=== PATIENT | female | born 1965 | race Caucasian/White ===

== ENCOUNTER → 2020-06-15 10:02 | Outpatient (BNVA) | payer OTHER, SELFPAY | PROVIDERS: Family Provider Family Medicine; Visit Provider Family Medicine | DX: Z20.828 Contact with and (suspected) exposure to other viral communicable diseases (principal) | CPT/HCPCS: 87635 ==

== ENCOUNTER → 2020-06-17 09:54 | Outpatient (BNVA) | payer OTHER, SELFPAY | PROVIDERS: Family Provider Family Medicine; Visit Provider Family Medicine | DX: Z20.828 Contact with and (suspected) exposure to other viral communicable diseases (principal) | CPT/HCPCS: 87635 ==

== ENCOUNTER → 2022-04-19 09:43 | Outpatient (BNVA) | payer OTHER, SELFPAY | PROVIDERS: Family Provider Family Medicine; PCP Family Medicine; Visit Provider Family Medicine | DX: I10 Essential (primary) hypertension (principal); E11.9 Type 2 diabetes mellitus without complications | CPT/HCPCS: 80053; 80061; 83036 ==

== ENCOUNTER → 2022-08-31 08:14 | Outpatient (BNVA) | payer OTHER, SELFPAY | PROVIDERS: Family Provider Family Medicine; PCP Family Medicine; Visit Provider Family Medicine | DX: E11.9 Type 2 diabetes mellitus without complications (principal); I10 Essential (primary) hypertension | CPT/HCPCS: 80053; 80061; 83036 ==

== ENCOUNTER → 2023-03-08 08:52 | Outpatient (BNVA) | payer OTHER, SELFPAY | PROVIDERS: Family Provider Family Medicine; PCP Family Medicine; Visit Provider Family Medicine | DX: I10 Essential (primary) hypertension (principal); E11.9 Type 2 diabetes mellitus without complications | CPT/HCPCS: 80053; 80061; 83036 ==

== ENCOUNTER → 2023-06-17 08:18 | Outpatient (BNVA) | payer OTHER, SELFPAY | PROVIDERS: Family Provider Family Medicine; PCP Family Medicine; Visit Provider Family Medicine | DX: E11.9 Type 2 diabetes mellitus without complications (principal) | CPT/HCPCS: 83036 ==

== ENCOUNTER → 2023-09-19 08:01 | Outpatient (BNVA) | payer OTHER, SELFPAY | PROVIDERS: Family Provider Family Medicine; PCP Family Medicine; Visit Provider Family Medicine | DX: I10 Essential (primary) hypertension (principal); E11.9 Type 2 diabetes mellitus without complications | CPT/HCPCS: 80053; 80061; 83036 ==

== ENCOUNTER → 2023-12-11 10:49 | Outpatient (BNVA) | payer OTHER, SELFPAY | PROVIDERS: Family Provider Family Medicine; PCP Family Medicine; Visit Provider Family Medicine | DX: I10 Essential (primary) hypertension (principal); R73.03 Prediabetes; E11.9 Type 2 diabetes mellitus without complications | CPT/HCPCS: 80053; 80061; 83036 ==

== ENCOUNTER → 2024-01-01 13:26 | Outpatient (BNVA) | payer OTHER, SELFPAY | PROVIDERS: Family Provider Family Medicine; PCP Family Medicine; Visit Provider Family Medicine | DX: L98.9 Disorder of the skin and subcutaneous tissue, unspecified (principal) | CPT/HCPCS: 88304 ==

== ENCOUNTER → 2024-03-04 10:05 | Outpatient (BNVA) | payer OTHER, SELFPAY | PROVIDERS: Family Provider Family Medicine; PCP Family Medicine; Visit Provider Family Medicine | DX: E11.9 Type 2 diabetes mellitus without complications (principal); R60.9 Edema, unspecified | CPT/HCPCS: 80053; 83880; 84443 ==

== ENCOUNTER → 2024-03-20 08:00 | Outpatient (BNVA) | payer OTHER, SELFPAY | PROVIDERS: Family Provider Family Medicine; PCP Family Medicine; Visit Provider Family Medicine | DX: I10 Essential (primary) hypertension (principal); E11.9 Type 2 diabetes mellitus without complications; N76.0 Acute vaginitis | CPT/HCPCS: 80053; 80061; 83036 ==

== ENCOUNTER → 2024-04-09 10:46 | Outpatient (BNVA) | payer OTHER, SELFPAY | PROVIDERS: Family Provider Family Medicine; PCP Family Medicine; Visit Provider Family Medicine | DX: N76.0 Acute vaginitis (principal); R30.0 Dysuria | CPT/HCPCS: 81000 ==

== ENCOUNTER → 2024-04-10 10:14 | Outpatient (BNVA) | payer OTHER, SELFPAY | PROVIDERS: Family Provider Family Medicine; PCP Family Medicine; Visit Provider Family Medicine | DX: N76.0 Acute vaginitis (principal) | CPT/HCPCS: 87086 ==

== ENCOUNTER → 2024-04-23 13:39 | Outpatient (BNVA) | payer OTHER, SELFPAY | PROVIDERS: Family Provider Family Medicine; PCP Family Medicine; Visit Provider Family Medicine | DX: R30.0 Dysuria (principal); N39.0 Urinary tract infection, site not specified | CPT/HCPCS: 81000; 87086 ==

== ENCOUNTER → 2024-06-22 08:01 | Outpatient (BNVA) | payer OTHER, SELFPAY | PROVIDERS: Family Provider Family Medicine; PCP Family Medicine; Visit Provider Family Medicine | DX: E11.9 Type 2 diabetes mellitus without complications (principal); I10 Essential (primary) hypertension; R53.83 Other fatigue; R73.03 Prediabetes | CPT/HCPCS: 80053; 80061; 83036; 84443 ==

== ENCOUNTER → 2024-09-17 07:49 | Outpatient (BNVA) | payer OTHER, SELFPAY | PROVIDERS: Family Provider Family Medicine; PCP Family Medicine; Visit Provider Family Medicine | DX: I10 Essential (primary) hypertension (principal); E11.9 Type 2 diabetes mellitus without complications | CPT/HCPCS: 80053; 83036 ==

== ENCOUNTER 2024-09-25 18:17 | Inpatient (IN) | payer OTHER, SELFPAY ==
[2024-09-25 18:20] VITALS: BP 161/72; PULSE 72; RESP 18; TEMP 36.6; O2SAT 99; BMI 43.5
--- NOTE | 2024-09-25 18:23 | ECG_ITS ---
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 Measurements Intervals [place] Rate: 69 P: 56 [place]: 201 QRS: 41 QRSD: 91 T: 52 QT: 343 QTc: 369 Interpretive Statements SINUS RHYTHM MODERATE ST DEPRESSION [0.05+ mV ST DEPRESSION] No previous ECG available for comparison Electronically Signed On 09-26-2024 07:39:01 CDT by Isiah Guy M.D. [email or web address] [id number]
--- NOTE | 2024-09-25 18:59 | XRR_ITS ---
PROCEDURE INFORMATION: Exam: XR Chest Exam date and time: 09/25/2024 9:53 PM Age: 59 years old Clinical indication: Chest pressure; C/O chest pain; Additional info: Cp TECHNIQUE: Imaging protocol: Radiologic exam of the chest. Views: 1 view. COMPARISON: No relevant prior studies available. FINDINGS: Lungs: See Heart/Mediastinum finding. Pleural spaces: Unremarkable. No pleural effusion. No pneumothorax. Heart/Mediastinum: Cardiomegaly, negative for infiltrate. Bones/joints: Unremarkable. XR/XR chest 1V portable [id number] IMPRESSION: Cardiomegaly, negative for infiltrate.
[2024-09-25 19:46] LABS: Basophils % 0.4 %; Eosinophils # 0.1 10^3/uL (0.0-0.8); Eosinophils % 0.8 %; Hematocrit 31.6 % (36-47); Lymphocytes # 1.2 10^3/uL (0.8-4.8); Lymphocytes % 15.3 %; Mean Corpuscular HGB Conc 28.5 g/dL (30-55); Mean Corpuscular Hemoglobin 21.4 pg (27-33); Mean Corpuscular Volume 75.2 fl (85-98); Mean Platelet Volume 9.6 fL (7.4-10.4); Monocytes # 0.5 10^3/uL (0.2-0.9); Monocytes % 5.9 %; Neutrophils # 5.94 10^3/uL (1.8-7.7); Neutrophils % 77.2 %; Nucleated Red Blood Cells % 0 %; Platelet Count 191 10^3/cmm (157-399); Red Cell Distribution Width 17.5 % (12.1-15.1); White Blood Count 7.69 10^3/uL (3.29-11.43)
[2024-09-25 20:06] LABS: Troponin(5th) Baseline 33 ng/L (0-10)
[2024-09-25 20:10] LABS: Anion Gap 17.6 (5-19); Blood Urea Nitrogen 37 mg/dL (8-23); Calcium 10.4 mg/dL (8.5-10.5); Carbon Dioxide 23 mmol/L (22-29); Chloride 102 mmol/L (98-107); Glomerular Filtration Rate 56.4 mL/min (90-130); Glucose 204 mg/dL (65-115); Osmolality Calculated 299 mOsm/kg (285-295); Potassium 5.6 mmol/L (3.5-5.1); Sodium 137 mmol/L (136-145)
--- NOTE | 2024-09-25 20:27 | ECG_ITS ---
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 Measurements Intervals [place] Rate: 66 P: 45 [place]: 201 QRS: 46 QRSD: 94 T: 59 QT: 355 QTc: 375 Interpretive Statements SINUS RHYTHM LOW QRS VOLTAGE IN PRECORDIAL LEADS [QRS DEFLECTION < 1.0 mV IN CHEST LEADS] MODERATE ST DEPRESSION [0.05+ mV ST DEPRESSION] Compared to ECG 09/25/2024 18:23:08 Low QRS voltage now present ST (T wave) deviation still present Electronically Signed On 09-26-2024 07:44:57 CDT by Isiah Guy M.D. [email or web address] [id number]
[2024-09-25 21:22] LABS: Troponin 5 2HR 58.26 ng/L (0-10)
[2024-09-25 21:23] LABS: Troponin 5 2HR Delta 25.26 ABS# (0-10)
[2024-09-25 22:16] VITALS: BP 162/96; PULSE 68; RESP 16; O2SAT 99
[2024-09-25 22:56] VITALS: BP 146/74; PULSE 76
[2024-09-25] MEDS: nitroglycerin 1 gm/inch oint Pkt 0.5 INCH TOPICAL (22:56)
[2024-09-25] MEDS: enoxaparin 120 mg/0.8 mL Syringe SUBCUT (22:56)
[2024-09-25] MEDS: clopidogrel 300 mg Tablet PO (23:00)
[2024-09-25] MEDS: aspirin 81 mg Chew Tablet 324 MG PO (23:01)
[2024-09-25 23:05] VITALS: BP 146/74; PULSE 84; RESP 16; O2SAT 98
--- NOTE | 2024-09-25 23:14 | P.HP_ITS ---
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 Patient is stating that for last 3 to 4 days she has been experiencing burning sensation especially after her lunchtime after meals, her symptoms would go away after a few hours, but since last 24 hours after her lunch she has been experiencing burning sensation radiating towards her left arm, associated with nausea and 1 episode of vomiting, numbness of left arm. Patient is leading a sedentary lifestyle. Sleeps in a recliner stating that every time she lays flat she would start coughing. No previous history of myocardial infarction, CHF, or stroke. She does not smoke or drink alcohol. Lives with her family. PCP is Dr. Seth. Workup in the ER consistent with non-STEMI she has been loaded with aspirin Plavix and Lovenox, EKG showed mild ST depression She is chest discomfort free at the time of evaluation Review of Systems 2 Const: Denies: fever(s) Eyes: Denies: change in vision ENMT: Denies: throat pain Card: Reports: chest pain Resp: Reports: dyspnea GI: Reports: nausea and vomiting : Denies: flank pain Musc: Reports: back pain Skin/Breast: Denies: rash Neuro: Denies: headache(s) Endo: Reports: polyuria Medications/Allergies Home Medications ?Medication ?Instructions ?Recorded ?Confirmed ?Last Taken ?Type allopurinol 100 mg tablet 100 mg PO DAILY #90 tabs 09/22/24 Unknown Rx losartan 100 mg tablet See Rx Instructions .Route 0 01/16/24 09/22/24 Unknown Rx .COMPLEX #30 tabs fluconazole 150 mg tablet 150 mg PO Q3D 2 doses #2 tab s 09/09/24 09/22/24 Unknown Rx naproxen 500 mg tablet See Rx Instructions .Route 0 09/09/24 09/22/24 Unknown Rx .COMPLEX #180 tabs insulin glargine 100 unit/mL (3 See Rx Instructions GARNICA BCUT 09/22/24 09/22/24 Unknown Rx mL) subcutaneous pen (Basaglar .COMPLEX #15 mL KwikPen U-100 Insulin) spironolactone 25 mg tablet See Rx Instructions .Route 09/22/24 09/22/24 Unknown Rx .COMPLEX #90 tabs Allergies Allergy/AdvReac Type Severity Reaction Status Date / Time No Known Allergies Allergy Verified 03/25/24 08:24 PFSH Acute 2 PFSH: Medical History Controlled type 2 diabetes mellitus Hypertension Social History Smoking and tobacco/nicotine status: unknown if used tobacco/nicotine Vitals/I&O/Wt Last Vital Signs Temp 97.8 F 09/25/24 18:20 Pulse 84 09/25/24 23:05 Resp 16 09/25/24 23:05 BP 146/74 09/25/24 23:05 Pulse Ox 98 09/25/24 23:05 O2 Del Method Room Air 09/25/24 23:05 Weight last 48 hrs Weight 126.099 kg Physical Exam 2 Narrative: female Interceed No active focal deficit GCS 15 AOx4 No active discomfort at all S1, S2 No audible stridor or wheezing Distended nontender abdomen Lower extremity nonpitting edema Appears stated age Data 09/25/24 19:38 09/25/24 19:38 A&P Assessment and plan (1) Hypertension: (2) Controlled type 2 diabetes mellitus: (3) Non-STEMI (non-ST elevated myocardial infarction): Plan Non-STEMI Start ACS protocol Requested echo Dr. Ames consulted No active chest pain ST depression on EKG significant delta troponin No previous history of [place], CHF Hypertension: Will continue losartan, add Coreg: Need optimization of antihypertensive regimen If blood pressure raise above 140s consistently then she may benefit from addition of hydrochlorothiazide and amlodipine Type 2 diabetes: Insulin with sliding scale check A1c level along lipid panel Full code Consistent carb diet DVT prophylaxis: Currently on therapeutic Lovenox Cough on laying back: Possible GERD: Continue Protonix PDMP PDMP Reviewed: Not Reviewed Attestations 2 Medical Necessity Statement*: More than 2 midnights anticipated for management of ACS/non-STEMI Diagnoses Hypertension I10 Controlled type 2 diabetes mellitus E11.9 Non-STEMI (non-ST elevated myocardial infarction) I21.4
[2024-09-25 23:54] LABS: Estmated Average Glucose 171; Hemoglobin A1C 7.6 % (4.0-6.0)
[2024-09-26] VITALS (12 sets, daily range): BP systolic 109–154; BP diastolic 56–89; PULSE 74–95; RESP 15–25; TEMP 36.4–37.1; O2SAT 95–99; BMI 44.4
[2024-09-26] MEDS: carvedilol 6.25 mg Tablet PO ×3 (01:25→17:17)
[2024-09-26 02:15] LABS: Troponin 5 6HR 151.8 ng/L (0-10); Troponin 5 6HR Delta 118.8 ng/L (0-12)
[2024-09-26 03:07] LABS: Vitamin B12 456 pg/mL (232-1245)
[2024-09-26 05:10] LABS: Basophils % 0.4 %; Eosinophils # 0.1 10^3/uL (0.0-0.8); Eosinophils % 0.6 %; Hematocrit 31.4 % (36-47); Lymphocytes # 1.9 10^3/uL (0.8-4.8); Lymphocytes % 19.7 %; Mean Corpuscular Hemoglobin 21.3 pg (27-33); Mean Platelet Volume 9.6 fL (7.4-10.4); Monocytes # 0.6 10^3/uL (0.2-0.9); Monocytes % 5.9 %; Neutrophils # 7.08 10^3/uL (1.8-7.7); Neutrophils % 72.8 %; Nucleated Red Blood Cells % 0 %; Platelet Count 216 10^3/cmm (157-399); Red Blood Count 4.13 10^6/uL (3.85-5.65); Red Cell Distribution Width 17.4 % (12.1-15.1); White Blood Count 9.72 10^3/uL (3.29-11.43)
[2024-09-26 05:21] LABS: Anion Gap 17.2 (5-19); Blood Urea Nitrogen 35 mg/dL (8-23); C Reactive Protein 19.6 mg/L (0.0-4.9); Calcium 10.1 mg/dL (8.5-10.5); Carbon Dioxide 20 mmol/L (22-29); Chloride 103 mmol/L (98-107); Glomerular Filtration Rate 56.4 mL/min (90-130); Glucose 177 mg/dL (65-115); Osmolality Calculated 292 mOsm/kg (285-295); Potassium 5.2 mmol/L (3.5-5.1); Sodium 135 mmol/L (136-145)
[2024-09-26 06:07] LABS: Glucose Point of Care 178 mg/dL (70-110)
--- NOTE | 2024-09-26 08:05 | PM.CONSULT ---
Providers/Reason For Consult Consulting Physician/Specialty*: DANA Ames MD/cardiology Reason for Consult*: Patient with a chest pain and elevated troponin T Requesting Physician: Dr. Almeida Attending Physician: Janeen Almeida MD Primary Care Provider: Cheko Lyon MD History of Present Illness History of Present Illness Shannan Plaza is a 59 year old female with a history of hypertension, type 2 diabetes and morbid obesity, is present with complaints of chest pain for the last couple of days. She was found to have elevated troponin T with a significant delta in 2 hours. Cardiology consult is requested for further cardiac evaluation recommendations. Apparently this patient has been in her baseline state of health up until 2 days ago when she started having burning type of pain on the left side of the chest following a meal. The pain might have lasted for half an hour or so. It was mild to moderate intensity. She thought that the pain may be related to the heartburns. Yesterday she had pizza for lunch. Following this again she started having heartburn-like symptoms on the left side of the chest of mild to moderate density. By evening, she started having numbness and some discomfort in the left arm. Because of this new change, she came to the emergency room. She did not have any shortness of breath, nausea ,vomiting or sweating. She had a feeling of generalized weakness and not feeling good . In the emergency room, she was given aspirin to chew and was placed on Nitropaste on the chest wall. She also was given subcu Lovenox. Her symptoms gradually subsided. At the time of my examination, patient is pain-free. She has no previous history of coronary disease, myocardial infarction or congestive heart failure. History of high blood pressure for last more than 20 years. Diabetes for the last more than 5 years. She took Ozempic for some time . According the patient, she lost around 100 pounds within a year. Because of the frequent UTIs/vaginitis, the medicine had to be stopped. She has no history of any TIAs or Amaurosis. No history of bleeding disorders. No history of anemia denies any fever, chills or cough. No other specific complaints. No significant family history of atherosclerotic heart diseas. Her father might have had some type of heart problem but never been treated. Denies any smoking abuse, alcohol abuse or any other substance abuse. She works at the [employer] department of this [employer]. Review of Systems Narrative: CONSTITUTIONAL: No fever or chills. Weight loss from Ozempic as mentioned EYES: No blurring of vision or other visual disturbances lately. ENT: No hoarseness of voice, auditory disturbances or sore throat. CARDIOVASCULAR: As mentioned above. RESPIRATORY: No significant cough. GASTROINTESTINAL: No hematemesis or melena. GENITOURINARY: No dysuria or hematuria. INTEGUMENTARY: No skin rashes or history of skin cancer. NEURO: No transient ischemic attacks or amaurosis. PSYCHIATRIC: No history of psychosis or major depression. HEMATOLOGIC: No bleeding disorders or significant anemia. ENDOCRINE: Type 2 diabetes as mentioned above MUSCULOSKELETAL: No recent joint pain or swelling. ALLERGY/IMMUNOLOGY: As mentioned above. Medications/Allergies Home Medications ?Medication ?Instructions ?Recorded ?Confirmed ?Last Taken ?Type allopurinol 100 mg tablet 100 mg PO DAILY #90 tabs 12/24/23 09/26/24 Unknown Rx losartan 100 mg tablet See Rx Instructions .Route 01/16/24 09/26/24 Unknown Rx .COMPLEX #30 tabs fluconazole 150 mg tablet 150 mg PO Q3D 2 doses #2 tabs 09/09/24 09/26/24 Unknown Rx naproxen 500 mg tablet See Rx Instructions .Route 09/09/24 09/26/24 Unknown Rx .COMPLEX #180 tabs insulin glargine 100 unit/mL (3 See Rx Instructions SUBCUT 09/22/24 09/26/24 Unknown Rx mL) subcutaneous pen (Basaglar .COMPLEX #15 mL KwikPen U-100 Insulin) spironolactone 25 mg tablet See Rx Instructions .Route 09/22/24 09/26/24 Unknown Rx .COMPLEX #90 tabs Allergies Allergy/AdvReac Type Severity Reaction Status Date / Time No Known Allergies Allergy Verified 03/25/24 08:24 Current Medications Generic Name Dose Route Start Last Admin Trade Name Сергейq PRN Reason Stop Dose Admin Carvedilol 6.25 mg 09/26/24 00:20 09/26/24 01:25 Carvedilol 6.25 Mg Tablet PO 6.25 mg BID HANG Administration PFSH Acute PFSH: Medical History Controlled type 2 diabetes mellitus Hypertension Social History Smoking and tobacco/nicotine status: unknown if used tobacco/nicotine Vitals/I&O/Wt Last Vital Signs Temp 97.6 F 09/26/24 07:26 Pulse 78 09/26/24 07:26 Resp 24 H 09/26/24 07:26 BP 145/89 09/26/24 07:26 Pulse Ox 96 09/26/24 07:26 O2 Del Method Room Air 09/26/24 07:26 Weight last 48 hrs Weight 283 lb 6 oz Weight 283 lb 6 oz Weight 278 lb Physical Exam Narrative: GENERAL: The patient is alert and oriented times three. Not in any acute distress. Obese HEENT: No significant pallor, icterus or lymphadenopathy.Oral cavity: There are no mucous membrane lesions. NECK: Trachea appears to be central. No masses noted. No JVD or thyromegaly appreciated. RESPIRATORY: Chest is symmetrical. No intercostals muscle retraction or any accessory muscle activation. There is no chest wall tenderness. Breath sounds are heard bilaterally. No rales or rhonchi heard. No evidence of any consolidation. BREASTS: Deferred. HEART: The heart sounds are normal. No S3 or S4. No significant murmurs. No pericardial rub ABDOMEN: No vessel pulsations or distention. No tenderness. No organomegaly appreciated. Bowel sounds are normally heard. : Deferred. RECTAL: Deferred. LYMPHATIC: No lymphadenopathy noted in the neck. EXTREMITIES: Trace edema bilaterally with no cyanosis. MUSCULOSKELETAL: No acute joint deformities or swelling SKIN: There are no significant rashes or ecchymosis NEUROPSYCHIATRIC: The patient is alert and oriented x3. Appears to be in a good mood. No tremors or rigidity noted. Data 09/27/24 05:31 09/26/24 04:54 Other Labs: Laboratory Last Values WBC 9.72 10^3/uL (3.29-11.43) 09/26/24 04:54 RBC 4.13 10^6/uL (3.85-5.65) 09/26/24 04:54 Hgb 8.80 g/dL (11.27-16.99) L 09/26/24 04:54 Hct 31.4 % (36-47) L 09/26/24 04:54 MCV 76.0 fl (85-98) L 09/26/24 04:54 MCH 21.3 pg (27-33) L 09/26/24 04:54 MCHC 28.0 g/dL (30-55) L 09/26/24 04:54 RDW 17.4 % (12.1-15.1) H 09/26/24 04:54 Plt Count 216 10^3/cmm (157-399) 09/26/24 04:54 MPV 9.6 fL (7.4-10.4) 09/26/24 04:54 Neut % (Auto) 72.8 % 09/26/24 04:54 Lymph % (Auto) 19.7 % 09/26/24 04:54 [place] % (Auto) 5.9 % 09/26/24 04:54 Eos % (Auto) 0.6 % 09/26/24 04:54 Baso % (Auto) 0.4 % 09/26/24 04:54 Neut # (Auto) 7.08 10^3/uL (1.8-7.7) 09/26/24 04:54 Lymph # (Auto) 1.9 10^3/uL (0.8-4.8) 09/26/24 04:54 [place] # (Auto) 0.6 10^3/uL (0.2-0.9) 09/26/24 04:54 Eos # (Auto) 0.1 10^3/uL (0.0-0.8) 09/26/24 04:54 Baso # (Auto) 0.0 10^3/uL (0.0-0.1) 09/26/24 04:54 Nucleated RBC % (auto) 0 % 09/26/24 04:54 Nucleated RBCs # 0.0 /100WBC 09/26/24 04:54 D-Dimer 0.60 ug/mLFEU (0-0.59) H 09/25/24 19:38 Sodium 135 mmol/L (136-145) L 09/26/24 04:54 Potassium 5.2 mmol/L (3.5-5.1) H 09/26/24 04:54 Chloride 103 mmol/L (98-107) 09/26/24 04:54 Carbon Dioxide 20 mmol/L (22-29) L 09/26/24 04:54 Anion Gap 17.2 (5-19) 09/26/24 04:54 BUN 35 mg/dL (8-23) H 09/26/24 04:54 Creatinine 1.0 mg/dL (0.5-0.9) H 09/26/24 04:54 GFR Calculation 56.4 mL/min (90-130) L 09/26/24 04:54 Glucose 177 mg/dL (65-115) H 09/26/24 04:54 POC Glucose 178 mg/dL (70-110) H 09/26/24 06:03 Estimat Average Glucose 171 09/25/24 19:38 Hemoglobin A1c 7.6 % (4.0-6.0) H 09/25/24 19:38 Calculated Osmolality 292 mOsm/kg (285-295) 09/26/24 04:54 Calcium 10.1 mg/dL (8.5-10.5) 09/26/24 04:54 Magnesium 2.0 mg/dL (1.7-2.3) 09/26/24 04:54 Troponin T Baseline 33 ng/L (0-10) H 09/25/24 19:38 Troponin T 120 Minute 58.26 ng/L (0-10) H 09/25/24 20:57 Delta Troponin T 25.26 ABS# (0-10) H* 09/25/24 20:57 Troponin T Hi Sens 6Hr 151.8 ng/L (0-10) H 09/26/24 01:06 Troponin T Hi Sens 6Hr Delta 118.8 ng/L (0-12) H* 09/26/24 01:06 C-Reactive Protein 19.6 mg/L (0.0-4.9) H 09/26/24 04:54 Vitamin B12 456 pg/mL (232-1245) 09/25/24 19:38 EKG 1: My Interpretation: Normal sinus rhythm. Low voltage complexes in the precordial leads. Nonspecific ST changes in the inferior and high lateral leads. A&P Assessment and plan (1) Non-STEMI (non-ST elevated myocardial infarction): Patient sublingual features are consistent with unstable angina/non-ST elevation myocardial infarction. Currently she is asymptomatic. Hemodynamically stable. Her troponin T is trending upwards. The 2-hour delta of 25 with a 6-hour delta of 119. She may be kept on the Plavix, aspirin and heparin (2) Controlled type 2 diabetes mellitus: The blood sugar is fairly under control. This may be closely monitored. Qualifiers: Diabetes mellitus complication status: without complication Diabetes mellitus termite renewal inspector insulin use: with shelter use Qualified Code(s): E11.9 - Type 2 diabetes mellitus without complications; Z79.4 - technician terminal and repeater (current) use of insulin (3) Hypertension: Blood pressure is a stage II. Need to optimize the antihypertensive medications. I may add isosorbide mononitrate 30 mg p.o. daily in addition to current medications. Qualifiers: Hypertension type: primary hypertension Qualified Code(s): I10 - Essential (primary) hypertension (4) Anemia: The etiology is unclear. No evidence of any active bleed. This needs to be further evaluated Qualifiers: Anemia type: other cause Other causes of anemia: other cause, not classified Qualified Code(s): D64.89 - Other specified anemias (5) Renal insufficiency: Etiology is not clear. Possibly from the diabetes. This needs to be further evaluated. Plan The other problems are GERD Obesity Mild hyperkalemia Echocardiogram this morning Workup of anemia as per the primary Careful IV hydration May continue the heparin Plavix and aspirin for the time being Isosorbide mononitrate 30 mg p.o. now and daily Based on the patient's clinical progress and the results of the above, further recommendations will be made. Thank you for the opportunity to evaluate this patient and make these recommendations PDMP PDMP Reviewed: Not Reviewed Coding Level of Care Code 56965 Diagnoses Non-STEMI (non-ST elevated myocardial infarction) I21.4 Controlled type 2 diabetes mellitus without complication, with long-term current use of insulin E11.9; Z79.4 Diabetes mellitus complication status: without complication Diabetes mellitus termite renewal inspector insulin use: with termite renewal inspector use Primary hypertension I10 Hypertension type: primary hypertension Anemia due to other cause, not classified D64.89 Anemia type: other cause Other causes of anemia: other cause, not classified Renal insufficiency N28.9
[2024-09-26] MEDS: insulin lispro 100 unit/1 mL SUBCUT ×4 (09:04→21:02)
[2024-09-26] MEDS: clopidogrel 75 mg Tablet PO (09:05)
[2024-09-26] MEDS: sennosides-docusate Tablet 1 TAB PO (09:05)
[2024-09-26] MEDS: atorvastatin 40 mg Tablet 80 MG PO (09:05)
[2024-09-26] MEDS: losartan 50 mg Tablet 100 MG PO (09:05)
[2024-09-26] MEDS: aspirin 81 mg EC Tablet PO (09:05)
[2024-09-26] MEDS: pantoprazole 40 mg SDV IVP ×2 (09:06→17:16)
--- NOTE | 2024-09-26 09:46 | PC.CHAP ---
Pastoral Care Encounter/Spiritual Assessment Type of Contact [] Declined speech correction assistant visit [] Patient/Family/Request visit [] Outpatient visit [] Follow-up visit [] Physician referral [] Code/Alert [x] Routine visit [] Staff referral [] Actively dying [] Patient sleeping [] Family support [] [] Out of room [] Palliative care [] [] Receiving care in room [] Pre-surgical visit [] Trauma [] Long length of stay [] ICU visit [] Other: Relational/Emotional Strength [x] Patient feels connected with others/family/visitors/staff [] Distress [] Loneliness/isolation [] Abandonment Spirituality of Patient [x] Person of Poornima [] Attends Restorationism of their Poornima [x] Believes in Prayer [] Reads Bible or Evangelical materials [] There are Spiritual issues to be addressed 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 Interventions [x] Prayer [x] Active listening [x] Non-anxious presence [] Spiritual/emotional support [] Crisis/trauma care [] Spiritual counseling [] Bereavement support [] Provided bereavement packet [] Provided Bible/devotional materials [] Provided toy/stuffed animal, coloring book to patient or family member [] Provided Communion [] Anointing/[place] [] Salvation [] Completed spiritual assessment [] Other: Impact on Illness or Injury [] Angry [] Fearful [] Anxious [] Often cries [] Exhaustion [] Unable to work [] Unable to attend christianity [] Unable to walk/stand [] Unable to read [] Unable to drive [] Unable to eat/drink [] Unable to sleep [] Unable to be with family [] Patient intubated [] Other: Summary P+1 Time spent with patient
[2024-09-26] MEDS: isosorbide mononitrate ER 30 mg Tablet PO (10:38)
[2024-09-26] MEDS: enoxaparin 120 mg/0.8 mL Syringe SUBCUT (10:39)
[2024-09-26 11:18] LABS: Glucose Point of Care 217 mg/dL (70-110)
--- NOTE | 2024-09-26 13:09 | PM.PN ---
Subjective Subjective: Current labs and H&P reviewed. Patient does not have any active chest pain at this time. Medications: Reviewed: Yes Vitals/I&O/Wt Last Vital Signs Temp 98.4 F 09/26/24 12:00 Pulse 74 09/26/24 12:00 Resp 22 H 09/26/24 12:00 BP 115/64 09/26/24 12:00 Pulse Ox 97 09/26/24 12:00 O2 Del Method Room Air 09/26/24 12:00 09/25/24 09/26/24 09/26/24 22:59 06:59 14:59 Intake Total 120 / 120 Balance 120 / 120 Weight last 48 hrs Weight 128.537 kg Weight 128.537 kg Weight 126.099 kg Physical Exam Narrative: General: No acute distress, AO x3 HEENT: PERRLA, pupils bilaterally equal and reactive, pallors not present Chest: Normal vesicular breath sounds, no added sounds, equal good air entry bilaterally CVS: S1-S2 regular, no murmurs, no tachycardia, no gallops, no rubs Abdomen: Soft, nontender, no organomegaly, bowel sounds present Neuro: No focal deficits, no facial deformity, AO x3, power 5/5 in all limbs Data 09/26/24 04:54 09/26/24 04:54 A&P Assessment and plan (1) Hypertension: Qualifiers: Hypertension type: primary hypertension Qualified Code(s): I10 - Essential (primary) hypertension (2) Controlled type 2 diabetes mellitus: Qualifiers: Diabetes mellitus assistant terminal manager insulin use: with assistant terminal manager use Diabetes mellitus complication status: without complication Qualified Code(s): E11.9 - Type 2 diabetes mellitus without complications; Z79.4 - termite control servicer (current) use of insulin (3) Non-STEMI (non-ST elevated myocardial infarction): (4) Anemia: Qualifiers: Anemia type: other cause Other causes of anemia: other cause, not classified Qualified Code(s): D64.89 - Other specified anemias Plan Non-STEMI Start ACS protocol Requested echo Dr. Ames consulted No active chest pain ST depression on EKG significant delta troponin No previous history of [place], CHF Hypertension: Will continue losartan, add Coreg: Need optimization of antihypertensive regimen If blood pressure raise above 140s consistently then she may benefit from addition of hydrochlorothiazide and amlodipine Type 2 diabetes: Insulin with sliding scale check A1c level along lipid panel Full code Consistent carb diet DVT prophylaxis: Currently on therapeutic Lovenox Cough on laying back: Possible GERD: Continue Protonix September 26, 2024 Patient admitted overnight with NSTEMI. Currently denies any chest pain. Thus far she has had treatment with aspirin, Plavix, Lovenox 120 mg 2 doses. Case discussed with cardiology. There is concern that patient has Anemia. Low hemoglobin of 9.0 at night, 8.8 this morning. Uncertain cause of anemia at this point. Patient denies any melena or hematemesis recently. Reports a history of epigastric burning over the past week but states this is new and has not bothered her in the past. Review of chart shows patient takes naproxen cirrhosis gastritis may be a possibility. Will obtain fecal occult blood testing. If positive to proceed with endoscopic evaluation prior to cardiac cath. Additionally obtain iron panel, ferritin, TIBC, liver panel to evaluate for elevated bilirubin for hemolysis, obtain B12 and folate levels. TSH reveals normal. Patient denies any known history of anemia, however there is no baseline hemoglobin in the system to compare this to. PDMP PDMP Reviewed: Not Reviewed Attestations Medical Necessity Statement*: Ongoing treatment for NSTEMI, ongoing evaluation for anemia, need to rule out GI bleed prior to proceeding with angiogram. Coding Level of Care Code Acute Code for Chg Fwd Diagnoses Primary hypertension I10 Hypertension type: primary hypertension Controlled type 2 diabetes mellitus without complication, with long-term current use of insulin E11.9; Z79.4 Diabetes mellitus senior care insulin use: with senior care use Diabetes mellitus complication status: without complication Non-STEMI (non-ST elevated myocardial infarction) I21.4 Anemia due to other cause, not classified D64.89 Anemia type: other cause Other causes of anemia: other cause, not classified
--- NOTE | 2024-09-26 13:25 | PC.NURSE ---
Heparin drip Pt received Lovenox around 10:30 AM. Received telephone order from doctor to not give Heparin bolus. Start Heparin drip once verified with pharmacy/pharmacist on what time to start the drip after Lovenox administration. Discuss with pharmacy to safely start it around 5pm.
[2024-09-26 13:43] LABS: Alanine Aminotransferase 16 U/L (0-33); Albumin Level 3.6 g/dL (3.5-5.2); Alkaline Phosphatase 103 U/L (35-105); Aspartate Amino Transferase 36 U/L (0-32); Ferritin 22 ng/mL (15-150); Globulin 4.1 g/dL (1.3-4.6); Iron 34 ug/dL (37-145); Percent Saturation 10.7 % (20-50); Total Bilirubin 0.4 mg/dL (0.15-1.2); Total Iron Binding Capacity 316 mcg/dl; Total Protein 7.7 g/dL (6.6-8.7); Unsaturated Iron Binding 282 ug/dL (112-347)
[2024-09-26 14:04] LABS: Folate Level 12.1 ng/mL (4.8-37.3)
[2024-09-26 14:18] LABS: Partial Thromboplastin Time 36.7 SECONDS (23.9-36.7)
[2024-09-26 17:13] LABS: Glucose Point of Care 193 mg/dL (70-110)
[2024-09-26] MEDS: heparin drip 25,000 UNIT/500 ML PREMIX 35 UNIT IV (17:16)
[2024-09-26 20:36] LABS: Glucose Point of Care 191 mg/dL (70-110)
--- NOTE | 2024-09-26 23:28 | USCV_ITS ---
Shannan Plaza Age: 59 Gender: F : 1965 Exam Date: 09/26/2024 08:20 Ordering Phys: Janeen Almeida MD Technologist: Manny Amor Exam Location: [facility] [place] Indication: UA BP: 145 / 89 HR: 70 Rhythm: Sinus Technical Quality: Adequate MEASUREMENTS (Male / Female) Normal Values 2D ECHO LV Diastolic Diameter PLAX 4.3 cm 4.2 - 5.9 / 3.9 - 5.3 cm IVS Diastolic Thickness 1.2 cm 0.6 - 1.0 / 0.6 - 0.9 cm IVS Systolic Thickness 1.5 cm LVPW Diastolic Thickness 1.0 cm 0.6 - 1.0 / 0.6 - 0.9 cm LVPW Systolic Thickness 1.7 cm LVOT Diameter 2.0 cm LV Ejection Fraction 2D Teich 65.2 % LV Ejection Fraction MOD 4C 58.9 % LV Ejection Fraction MOD 2C 67.1 % LV Ejection Fraction 2C AL 66.8 % LA Diameter 3.7 cm RA Systolic Volume 4C AL 52.5 ml RA Systolic Volume 4C MOD 52.1 ml LA Sys Volume AL 58.1 cm cubed LA Sys Volume Index AL 22.9 cm cubed/m squared Aorta at Sinotubular Diameter 2.4 cm IVC Diameter 1.6 cm M-MODE LA Ao Ratio MM 1.8 AV Cusp Separation MM 1.4 cm DOPPLER AV Peak Velocity 149.0 cm/s LVOT Peak Velocity 107.0 cm/s AV Area Cont Eq vti 2.4 cm squared AV Area Cont Eq pk 2.3 cm squared MV Area PHT 4.0 cm squared Mitral E to A Ratio 0.7 TV Peak Velocity 161.0 cm/s TR Peak Velocity 176.0 cm/s TR Peak Gradient 12.4 mmHg TR Mean Velocity 155.0 cm/s TR Mean Gradient 9.7 mmHg TR Velocity Time Integral 48.2 cm PV Peak Velocity 102.0 cm/s RV Ejection Time 0.2 s FINDINGS Left Ventricle Normal left ventricular size and systolic function, EF 65%mild left ventricular hypertrophy. Grade I/IV diastolic dysfunction (abnormal relaxation filling pattern), normal to mildly elevated filling pressures. No significant wall motion abnormalities Right Ventricle The right ventricle is normal in size and function. Right Atrium The right atrium is normal in size. Left Atrium Possibly of normal size Mitral Valve Thickened mitral valve. Mild mitral annular calcification. Mild mitral valve regurgitation. Aortic Valve No gross abnormalities noted Tricuspid Valve Trace tricuspid valve regurgitation. Pulmonic Valve Pulmonic valve not well visualized. Pericardium Normal pericardium without effusion. Aorta Normal ascending aorta dimension. IVC Inferior vena cava not visualized. CONCLUSIONS Normal left ventricular size and systolic function, EF 65%mild left ventricular hypertrophy. Grade I/IV diastolic dysfunction (abnormal relaxation filling pattern), normal to mildly elevated filling pressures. No significant wall motion abnormalities. Thickened mitral valve. Mild mitral annular calcification. Mild mitral valve regurgitation. Possibly normal cardiac chamber sizes. Trace tricuspid valve regurgitation. Estimated pulmonary artery peak systolic pressure, possibly within normal Technically difficult study because of the poor ultrasonic window. Dr Santi Ames MD FACC (Electronically Signed) Final Date: 26 September 2024 10:14 S
[2024-09-27] VITALS (17 sets, daily range): BP systolic 102–127; BP diastolic 55–65; PULSE 67–92; RESP 18–24; TEMP 36.3–37.2; O2SAT 94–99
[2024-09-27] MEDS: acetaminophen 500 mg Tablet PO (00:19)
[2024-09-27 06:27] LABS: Partial Thromboplastin Time 66.9 SECONDS (23.9-36.7)
[2024-09-27 06:36] LABS: Glucose Point of Care 140 mg/dL (70-110)
[2024-09-27] MEDS: atorvastatin 40 mg Tablet 80 MG PO (08:42)
[2024-09-27] MEDS: losartan 50 mg Tablet 100 MG PO (08:42)
[2024-09-27] MEDS: pantoprazole 40 mg SDV IVP ×2 (08:42→17:45)
[2024-09-27] MEDS: aspirin 81 mg EC Tablet PO (08:42)
[2024-09-27] MEDS: carvedilol 6.25 mg Tablet PO ×2 (08:42→17:46)
[2024-09-27] MEDS: clopidogrel 75 mg Tablet PO (08:42)
[2024-09-27] MEDS: heparin drip 25,000 UNIT/500 ML PREMIX 35 UNIT IV ×2 (08:43→20:06)
[2024-09-27 09:01] LABS: Basophils % 0.4 %; Eosinophils # 0.1 10^3/uL (0.0-0.8); Eosinophils % 0.7 %; Hematocrit 27.2 % (36-47); Lymphocytes # 2.3 10^3/uL (0.8-4.8); Lymphocytes % 24.8 %; Mean Corpuscular HGB Conc 27.9 g/dL (30-55); Mean Corpuscular Hemoglobin 21.2 pg (27-33); Mean Platelet Volume 10.5 fL (7.4-10.4); Monocytes # 0.9 10^3/uL (0.2-0.9); Monocytes % 9.8 %; Neutrophils # 5.82 10^3/uL (1.8-7.7); Neutrophils % 63.8 %; Nucleated Red Blood Cells % 0 %; Platelet Count 172 10^3/cmm (157-399); Red Blood Count 3.58 10^6/uL (3.85-5.65); Red Cell Distribution Width 17.7 % (12.1-15.1); White Blood Count 9.14 10^3/uL (3.29-11.43)
[2024-09-27 09:22] LABS: Bilirubin Urine 1+ (Negative); Blood Urine 3+ (Negative); Glucose Urine UA Negative (Normal); Ketones Urine Negative (Negative); Leukocyte Esterase Urine 2+ (Negative); Nitrate Urine Negative (Negative); Protein Urine 2+ (Negative); Specific Gravity, Urine 1.013 (1.005-1.030); Urine Appearance Turbid (CLEAR); Urobilinogen Urine 0.2 mg/dL (Negative)
[2024-09-27 09:23] LABS: Urine Color Red (Yellow)
[2024-09-27 09:27] LABS: Bacteria Urine Trace /hpf; Hyaline Casts Urine 1.13 /lpf; RBC Urine >100 /hpf (0-2); Squamous Epithelial Cell Urine 0-5 /hpf (0-5); WBC Urine >100 /hpf (0-5)
--- NOTE | 2024-09-27 09:36 | PM.PN ---
Subjective Subjective: Patient's hemoglobin dropped to 7.6 this morning. She had a CT of the abdomen and pelvis. Was found to have no evidence of intra-abdominal mass masses or bleeding. She was found to have some lung nodules which are suspicious. Currently she is scheduled to have a CT of the chest. She also had an episode of chest pain this morning lasting for 3 to 4 minutes, subsided spontaneously. It is a burning type of pain similar to what she had before. Medications: Medication Review Details: Current Medications Acetaminophen (Acetaminophen 500 Mg Tablet) 500 mg PO Q4H PRN PRN Reason: fever Last Admin: 09/27/24 00:19 Dose: 500 mg Albuterol/Ipratropium (Ipratropium-Albuterol 3 Ml Neb) 3 ml INHALATION Q6H PRN PRN Reason: SHORTNESS OF BREATH Aspirin (Aspirin 81 Mg Ec Tablet) 81 mg PO DAILY [facility] Last Admin: 09/27/24 08:42 Dose: 81 mg Atorvastatin Calcium (Atorvastatin 40 Mg Tablet) 80 mg PO DAILY [facility] Last Admin: 09/27/24 08:42 Dose: 80 mg Carvedilol (Carvedilol 6.25 Mg Tablet) 6.25 mg PO BID [facility] Last Admin: 09/27/24 08:42 Dose: 6.25 mg Clopidogrel Bisulfate (Clopidogrel 75 Mg Tablet) 75 mg PO DAILY [facility] Last Admin: 09/27/24 08:42 Dose: 75 mg Glucagon (Glucagon 1 Mg/Ml Kit 1 Ml) 1 mg IM ONCE PRN; Protocol PRN Reason: Adult Acute Hypoglycemia Nursing Prot. Heparin Sodium (Porcine) (Heparin 5,000 Unit/Ml Inj 1 Ml) 0 unit IVP PRN PRN; Protocol PRN Reason: Heparin Weight Based Protocol -Subsequent Bolus Hydralazine HCl (Hydralazine 20 Mg/Ml Inj 1 Ml) 10 mg IVP Q4H PRN PRN Reason: bp>180/100 Dextrose (D5w) 500 mls @ 0 mls/hr IV ONCE PRN; Protocol PRN Reason: Adult Acute Hypoglycemia Prot Dextrose (D10w) 125 mls @ 750 mls/hr IV PRN PRN; Protocol PRN Reason: Adult Acute Hypoglycemia Nursing Protocol Dextrose (D10w) 250 mls @ 1,000 mls/hr IV PRN PRN; Protocol PRN Reason: Adult Acute Hypoglycemia Nursing Protocol Heparin Sodium/Sodium Chloride (Heparin Drip) 25,000 unit in 500 mls @ 0 mls/hr IV CONT [facility]; Protocol Last Admin: 09/27/24 08:43 Dose: 13.93 unit/kg/hr, 35 mls/hr Insulin Human Lispro (Insulin Lispro 100 Unit/1 Ml) 0 unit SUBCUT WM&BEDTIME [facility]; Protocol Last Admin: 09/27/24 07:59 Dose: Not Given Isosorbide Mononitrate (Isosorbide Mononitrate Er 30 Mg Tablet) 30 mg PO DAILY [facility] Last Admin: 09/26/24 10:38 Dose: 30 mg Losartan Potassium (Losartan 50 Mg Tablet) 100 mg PO DAILY [facility] Last Admin: 09/27/24 08:42 Dose: 100 mg Morphine Sulfate (Morphine 4 Mg/Ml Sdv 1 Ml) 2 mg IVP Q4H PRN PRN Reason: SEVERE PAIN Ondansetron HCl (Ondansetron 2 Mg/Ml Sdv 2 Ml) 4 mg IVP Q6H PRN PRN Reason: NAUSEA AND VOMITING Pantoprazole Sodium (Pantoprazole 40 Mg Sdv) 40 mg IVP BID [facility] Last Admin: 09/27/24 08:42 Dose: 40 mg Senna/Docusate Sodium (Sennosides-Docusate Tablet) 1 tab PO DAILY [facility] [place] Last Admin: 09/27/24 08:47 Dose: Not Given Vitals/I&O/Wt Last Vital Signs Temp 97.5 F L 09/27/24 07:24 Pulse 70 09/27/24 07:24 Resp 24 H 09/27/24 07:24 BP 121/64 09/27/24 08:42 Pulse Ox 96 09/27/24 07:24 O2 Del Method Room Air 09/27/24 07:24 09/26/24 09/27/24 09/27/24 22:59 06:59 14:59 Intake Total 120 / 360 860 / 860 Balance 120 / 360 860 / 860 Weight last 48 hrs Weight 276 lb 6 oz Weight 276 lb 14.4 oz Weight 283 lb 6 oz Weight 283 lb 6 oz Weight 278 lb Physical Exam Narrative: GENERAL: The patient is alert and oriented times three. Not in any acute distress. Obese HEENT: No significant pallor, icterus or lymphadenopathy.Oral cavity: There are no mucous membrane lesions. NECK: Trachea appears to be central. No masses noted. No JVD or thyromegaly appreciated. RESPIRATORY: Chest is symmetrical. No intercostals muscle retraction or any accessory muscle activation. There is no chest wall tenderness. Breath sounds are heard bilaterally. No rales or rhonchi heard. No evidence of any consolidation. BREASTS: Deferred. HEART: The heart sounds are normal. No S3 or S4. No significant murmurs. No pericardial rub ABDOMEN: No vessel pulsations or distention. No tenderness. No organomegaly appreciated. Bowel sounds are normally heard. : Deferred. RECTAL: Deferred. LYMPHATIC: No lymphadenopathy noted in the neck. EXTREMITIES: Trace edema bilaterally with no cyanosis. MUSCULOSKELETAL: No acute joint deformities or swelling SKIN: There are no significant rashes or ecchymosis NEUROPSYCHIATRIC: The patient is alert and oriented x3. Appears to be in a good mood. No tremors or rigidity noted. Data 09/27/24 05:31 09/26/24 04:54 Other Labs: Laboratory Last Values WBC 9.14 10^3/uL (3.29-11.43) 09/27/24 05:31 RBC 3.58 10^6/uL (3.85-5.65) L 09/27/24 05:31 Hgb 7.60 g/dL (11.27-16.99) L 09/27/24 05:31 Hct 27.2 % (36-47) L 09/27/24 05:31 MCV 76.0 fl (85-98) L 09/27/24 05:31 MCH 21.2 pg (27-33) L 09/27/24 05:31 MCHC 27.9 g/dL (30-55) L 09/27/24 05:31 RDW 17.7 % (12.1-15.1) H 09/27/24 05:31 Plt Count 172 10^3/cmm (157-399) 09/27/24 05:31 MPV 10.5 fL (7.4-10.4) H 09/27/24 05:31 Neut % (Auto) 63.8 % 09/27/24 05:31 Lymph % (Auto) 24.8 % 09/27/24 05:31 Ballard % (Auto) 9.8 % 09/27/24 05:31 Eos % (Auto) 0.7 % 09/27/24 05:31 Baso % (Auto) 0.4 % 09/27/24 05:31 Neut # (Auto) 5.82 10^3/uL (1.8-7.7) 09/27/24 05:31 Lymph # (Auto) 2.3 10^3/uL (0.8-4.8) 09/27/24 05:31 Ballard # (Auto) 0.9 10^3/uL (0.2-0.9) 09/27/24 05:31 Eos # (Auto) 0.1 10^3/uL (0.0-0.8) 09/27/24 05:31 Baso # (Auto) 0.0 10^3/uL (0.0-0.1) 09/27/24 05:31 Nucleated RBC % (auto) 0 % 09/27/24 05:31 Nucleated RBCs # 0.0 /100WBC 09/27/24 05:31 APTT 66.9 SECONDS (23.9-36.7) H 09/27/24 05:34 D-Dimer 0.60 ug/mLFEU (0-0.59) H 09/25/24 19:38 Sodium 135 mmol/L (136-145) L 09/26/24 04:54 Potassium 5.2 mmol/L (3.5-5.1) H 09/26/24 04:54 Chloride 103 mmol/L (98-107) 09/26/24 04:54 Carbon Dioxide 20 mmol/L (22-29) L 09/26/24 04:54 Anion Gap 17.2 (5-19) 09/26/24 04:54 BUN 35 mg/dL (8-23) H 09/26/24 04:54 Creatinine 1.0 mg/dL (0.5-0.9) H 09/26/24 04:54 GFR Calculation 56.4 mL/min (90-130) L 09/26/24 04:54 Glucose 177 mg/dL (65-115) H 09/26/24 04:54 POC Glucose 140 mg/dL (70-110) H 09/27/24 06:29 Estimat Average Glucose 171 09/25/24 19:38 Hemoglobin A1c 7.6 % (4.0-6.0) H 09/25/24 19:38 Calculated Osmolality 292 mOsm/kg (285-295) 09/26/24 04:54 Calcium 10.1 mg/dL (8.5-10.5) 09/26/24 04:54 Magnesium 2.0 mg/dL (1.7-2.3) 09/26/24 04:54 Iron 34 ug/dL (37-145) L 09/26/24 04:54 TIBC 316 mcg/dl 09/26/24 04:54 % Saturation 10.7 % (20-50) L 09/26/24 04:54 Unsat Iron Binding 282 ug/dL (112-347) 09/26/24 04:54 Ferritin 22 ng/mL (15-150) 09/26/24 04:54 Total Bilirubin 0.4 mg/dL (0.15-1.2) 09/26/24 04:54 Direct Bilirubin 0.20 mg/dL (0.00-0.30) 09/26/24 04:54 AST 36 U/L (0-32) H 09/26/24 04:54 ALT 16 U/L (0-33) 09/26/24 04:54 Alkaline Phosphatase 103 U/L (35-105) 09/26/24 04:54 Troponin T Baseline 33 ng/L (0-10) H 09/25/24 19:38 Troponin T 120 Minute 58.26 ng/L (0-10) H 09/25/24 20:57 Delta Troponin T 25.26 ABS# (0-10) H* 09/25/24 20:57 Troponin T Hi Sens 6Hr 151.8 ng/L (0-10) H 09/26/24 01:06 Troponin T Hi Sens 6Hr Delta 118.8 ng/L (0-12) H* 09/26/24 01:06 C-Reactive Protein 19.6 mg/L (0.0-4.9) H 09/26/24 04:54 Total Protein 7.7 g/dL (6.6-8.7) 09/26/24 04:54 Albumin 3.6 g/dL (3.5-5.2) 09/26/24 04:54 Globulin 4.1 g/dL (1.3-4.6) 09/26/24 04:54 Vitamin B12 Cancelled 09/26/24 04:54 Folate 12.1 ng/mL (4.8-37.3) 09/26/24 04:54 Urine Color Red (Yellow) A 09/27/24 00:22 Urine Appearance Turbid (CLEAR) A 09/27/24 00:22 Urine pH 5.0 (5-7) 09/27/24 00:22 Ur Specific [place] 1.013 (1.005-1.030) 09/27/24 00:22 Urine Protein 2+ (Negative) A 09/27/24 00:22 Urine Glucose (UA) Negative (Normal) 09/27/24 00:22 Urine Ketones Negative (Negative) 09/27/24 00: Urine Blood 3+ (Negative) A 09/27/24 00:22 Urine Nitrate Negative (Negative) 09/27/24 00:22 Urine Bilirubin 1+ (Negative) H 09/27/24 00:22 Urine Urobilinogen 0.2 mg/dL (Negative) 09/27/24 00:22 Ur Leukocyte Esterase 2+ (Negative) A 09/27/24 00:22 Urine RBC >100 /hpf (0-2) H 09/27/24 00:22 Urine WBC >100 /hpf (0-5) H 09/27/24 00:22 Ur Squamous Epith Cells 0-5 /hpf (0-5) 09/27/24 00:22 Amorphous Sediment Not Reportable 09/27/24 00:22 Urine Bacteria Trace /hpf (NONE) 09/27/24 00:22 Hyaline Casts 1.13 /lpf 09/27/24 00:22 Micro: Microbiology 09/26/24 21:30 Occult Blood (FIT) - Final Stool Other data: Echocardiogram from today Normal left ventricular size and systolic function, EF 65%mild left ventricular hypertrophy. Grade I/IV diastolic dysfunction (abnormal relaxation filling pattern), normal to mildly elevated filling pressures. No significant wall motion abnormalities. Thickened mitral valve. Mild mitral annular calcification. Mild mitral valve regurgitation. Possibly normal cardiac chamber sizes. Trace tricuspid valve regurgitation. Estimated pulmonary artery peak systolic pressure, possibly within normal Technically difficult study because of the poor ultrasonic window. A&P Assessment and plan (1) Non-STEMI (non-ST elevated myocardial infarction): She had an episode of chest pain this morning. Currently it is resolved. The anemia might be contributing to the chest pain. Because of the drop in the hemoglobin , might be appropriate to give 1 unit of transfusion to keep the hemoglobin around 9. Also may do an EKG today to look for new changes. (2) Controlled type 2 diabetes mellitus: The blood sugar is fairly under control. This may be closely monitored. Qualifiers: Diabetes mellitus terminal computer operator insulin use: with fci use Diabetes mellitus complication status: without complication Qualified Code(s): E11.9 - Type 2 diabetes mellitus without complications; Z79.4 - FPC (current) use of insulin (3) Hypertension: The blood pressure is currently in the normal range. Seems to be tolerating medication so far well. Continue on the current medications. Qualifiers: Hypertension type: primary hypertension Qualified Code(s): I10 - Essential (primary) hypertension (4) Anemia: The etiology is unclear. No evidence of any active bleed. Malignancy could be a contributing factor. Patient requires further workup. Since she is fairly stable, may hold off on the invasive cardiac workup at this time Qualifiers: Anemia type: other cause Other causes of anemia: other cause, not classified Qualified Code(s): D64.89 - Other specified anemias (5) Renal insufficiency: Etiology is not clear. Possibly from the diabetes. Repeat BMP today Plan The other problems are GERD Obesity Mild hyperkalemia Lung lesions? PDMP PDMP Reviewed: Not Reviewed Attestations Medical Necessity Statement*: Patient requires continued hospital stay for close monitoring and further management Coding Level of Care Code 14103 Diagnoses Non-STEMI (non-ST elevated myocardial infarction) I21.4 Controlled type 2 diabetes mellitus without complication, with long-term current use of insulin E11.9; Z79.4 Diabetes mellitus terminal computer operator insulin use: with terminal computer operator use Diabetes mellitus complication status: without complication Primary hypertension I10 Hypertension type: primary hypertension Anemia due to other cause, not classified D64.89 Anemia type: other cause Other causes of anemia: other cause, not classified Renal insufficiency N28.9
[2024-09-27 11:36] LABS: Glucose Point of Care 184 mg/dL (70-110)
--- NOTE | 2024-09-27 12:05 | CTR_ITS ---
PROCEDURE INFORMATION: Exam: CT Abdomen And Pelvis Without Contrast Exam date and time: 09/27/2024 2:06 PM Age: 59 years old Clinical indication: Abdominal pain; Generalized; Additional info: Assess for bleeding TECHNIQUE: Imaging protocol: Computed tomography of the abdomen and pelvis without contrast. Radiation optimization: All CT scans at this facility use at least one of these dose optimization techniques: automated exposure control; mA and/or kV adjustment per patient size (includes targeted exams where dose is matched to clinical indication); or iterative reconstruction. COMPARISON: US renal BI* [id number] 04/13/2019 3:28 PM RADIATION DOSE METRICS: Total DLP (mGy-cm): 1315.13 FINDINGS: Lungs: Innumerable pulmonary nodule seen in the lower lobes bilaterally largest of which is seen in the right lower lobe measuring 7 mm (3/3). Mild bibasilar atelectasis. Diaphragm: Small sliding hiatal hernia. Liver: The liver is enlarged measuring 20 cm. Gallbladder and biliary ducts: Normal. No calcified stones. No ductal dilation. Pancreas: Normal. No ductal dilation. Spleen: The spleen is enlarged measuring 16 cm. Adrenal glands: Normal. No mass. Kidneys and ureters: Mild nonspecific perinephric stranding bilaterally which can be seen in the setting of medical renal disease. Lobulation of the right kidney. No evidence of hydronephrosis or nephrolithiasis. Stomach and bowel: No small or large bowel obstruction. Appendix: No evidence of appendicitis. Intraperitoneal space: No intraperitoneal free air or fluid. Vasculature: Unremarkable. No abdominal aortic aneurysm. Lymph nodes: Unremarkable. No enlarged lymph nodes. Urinary bladder: The urinary bladder is underdistended limiting evaluation. There is mild circumferential urinary bladder wall thickening. Reproductive: Status post hysterectomy. Bones/joints: Unremarkable. No acute fracture. Soft tissues: Moderate-sized left anterior/ventral abdominal wall hernia containing much of the transverse colon as well as intraperitoneal fat. No evidence of strangulation. Multiple subcentimeter nodular opacity seen in the bilateral breast tissues [id number]. Mild nonspecific edema and fat stranding noted along the lower left anterior abdominal and pelvic wall with a poorly defined lobulated fat containing density visualized adjacent to the aforementioned hernia sac measuring 7.6 x 5.1 cm () likely representing a lipoma. CT/CT abdomen pelvis wo con [id number] IMPRESSION: 1. Innumerable solid pulmonary nodules in the visualized lung bases. Findings are suspicious for metastatic disease. Recommend correlation with primary oncologic history. 2. Hepatosplenomegaly. 3. Moderate left ventral abdominal wall hernia containing the transverse colon without evidence bowel obstruction or strangulation. 4. Multiple nodules seen in the bilateral breast soft tissues. Recommend mammographic correlation. 5. The urinary bladder is underdistended limiting evaluation however there is mild urinary bladder wall thickening. Recommend correlation with urinalysis to exclude cystitis. 6. Other findings as described in the body of the report.
[2024-09-27 12:29] LABS: Partial Thromboplastin Time 60.8 SECONDS (23.9-36.7)
[2024-09-27] MEDS: cefTRIAXone 1,000 mg SDV 1000 MG IVP (12:52)
[2024-09-27] MEDS: insulin lispro 100 unit/1 mL SUBCUT ×2 (12:53→17:46)
--- NOTE | 2024-09-27 17:27 | CTR_ITS ---
PROCEDURE INFORMATION: Exam: CTA Chest With Contrast Exam date and time: 09/27/2024 8:28 PM Age: 59 years old Clinical indication: Abnormal findings; Abnormal diagnostic tests; Elevated d-dimer; Shortness of breath; SOB with dimer 0.60. ; Additional info: Assess for pe, newly diagnosed lung nodules ? malignancy, additionally TECHNIQUE: Imaging protocol: Computed tomographic angiography of the chest with contrast. Exam focused on the arteries. 3D rendering (Not supervised by radiologist): MIP and/or 3D reconstructed images were created by the technologist. Radiation optimization: All CT scans at this facility use at least one of these dose optimization techniques: automated exposure control; mA and/or kV adjustment per patient size (includes targeted exams where dose is matched to clinical indication); or iterative reconstruction. Contrast material: OMNI 350; Contrast volume: 78 ml; Contrast route: INTRAVENOUS (IV); COMPARISON: CR (CHEST, ) 09/25/2024 9:53 PM RADIATION DOSE METRICS: Total DLP (mGy-cm): 498.61 FINDINGS: Pulmonary arteries: Normal. No pulmonary emboli. Aorta: Unremarkable. No aortic aneurysm. No aortic dissection. Thyroid: Left thyroid lobe 12.7 mm low-density nodule, ultrasound could further evaluate this. Lungs: Patchy ground-glass airspace opacities suggestive of an underlying infectious or inflammatory process. Several bilateral pulmonary nodules, not well visualized given motion artifact, the largest which in the right lower lobe measures 8.9 mm, series 7, image 259 Pleural spaces: Unremarkable. No pneumothorax. No pleural effusion. Heart: Cardiomegaly. Lymph nodes: Unremarkable. No enlarged lymph nodes. Liver: Hepatic nodularity suspected suggestive of a cirrhotic liver. Spleen: Spleen enlarged 15 cm. Bones/joints: Multilevel bridging degenerative changes throughout the spine. Soft tissues: Unremarkable. CT/CT angio chest PE protcl [id number] IMPRESSION: 1. Patchy ground-glass airspace opacities suggestive of an underlying infectious or inflammatory process. 2. Several bilateral pulmonary nodules, not well visualized given motion artifact, the largest which in the right lower lobe measures 8.9 mm, series 7, image 259. Consider non-emergent PET/CT or tissue sampling.(Reference: Malcolm) 3. Left thyroid lobe 12.7 mm low-density nodule, ultrasound could further evaluate this. 4. Cardiomegaly. 5. Spleen enlarged 15 cm. 6. Hepatic nodularity suspected suggestive of a cirrhotic liver. 7. Multilevel bridging degenerative changes throughout the spine. COMMENTS: Consistent with the [employer]'s Incidental Findings Committee white paper (J Am Иван Radiol 2015): In patients aged 35 years and older with an incidental thyroid nodule equal to or greater than 1.[address], MRI or extrathyroidal US, further evaluation with dedicated thyroid US is recommended for patients with normal life expectancy and without comorbidities. For smaller nodules without suspicious features, no further evaluation or follow up is recommended. REFERENCES: Malcolm Robert, et al. Guidelines for Management of Incidental Pulmonary Nodules Detected on CT Images: From the Fleischner Society 2017. Radiology. 2017;284(1):228-243.
[2024-09-27 17:33] LABS: Glucose Point of Care 161 mg/dL (70-110)
--- NOTE | 2024-09-27 18:42 | ECG_ITS ---
[employer] Test Date: 2024-09-28 Pat Name: Shannan Plaza Department: Room: 106 Gender: Female County Engineer: : 1965 Requested By: Santi Ames Order Number: [id number] Vidhya MD: Santi Ames M.D. Measurements Intervals [place] Rate: 70 P: 18 NM: 222 QRS: 24 QRSD: 96 T: 46 QT: 381 QTc: 412 Interpretive Statements SINUS RHYTHM WITH FIRST DEGREE AV BLOCK LOW QRS VOLTAGE IN PRECORDIAL LEADS [QRS DEFLECTION < 1.0 mV IN CHEST LEADS] POSSIBLE ANTERIOR MYOCARDIAL INFARCTION , PROBABLY OLD [30 ms Q WAVE IN V3/V4, OR R < 0.2 mV IN V4] Compared to ECG 09/25/2024 21:47:48 First degree AV block now present Myocardial infarct finding now present ST (T wave) deviation no longer present Electronically Signed On 09-28-2024 21:11:46 CDT by Santi Ames M.D. [email or web address]
--- NOTE | 2024-09-27 20:02 | P.PN_ITS ---
Subjective 2 Subjective: hb at 7.6 today, no new complaints, no obvious bleeding Medications: Reviewed: Yes Medication Review Details: Current Medications Acetaminophen (Acetaminophen 500 Mg Tablet) 500 mg PO Q4H PRN PRN Reason: fever Last Admin: 09/27/24 00:19 Dose: 500 mg Albuterol/Ipratropium (Ipratropium-Albuterol 3 Ml Neb) 3 ml INHALATION Q6H PRN PRN Reason: SHORTNESS OF BREATH Aspirin (Aspirin 81 Mg Ec Tablet) 81 mg PO DAILY [facility] Last Admin: 09/27/24 08:42 Dose: 81 mg Atorvastatin Calcium (Atorvastatin 40 Mg Tablet) 80 mg PO DAILY [facility] Last Admin: 09/27/24 08:42 Dose: 80 mg Carvedilol (Carvedilol 6.25 Mg Tablet) 6.25 mg PO BID [facility] Last Admin: 09/27/24 08:42 Dose: 6.25 mg Clopidogrel Bisulfate (Clopidogrel 75 Mg Tablet) 75 mg PO DAILY [facility] Last Admin: 09/27/24 08:42 Dose: 75 mg Glucagon (Glucagon 1 Mg/Ml Kit 1 Ml) 1 mg IM ONCE PRN; Protocol PRN Reason: Adult Acute Hypoglycemia Nursing Prot. Heparin Sodium (Porcine) (Heparin 5,000 Unit/Ml Inj 1 Ml) 0 unit IVP PRN PRN; Protocol PRN Reason: Heparin Weight Based Protocol -Subsequent Bolus Hydralazine HCl (Hydralazine 20 Mg/Ml Inj 1 Ml) 10 mg IVP Q4H PRN PRN Reason: bp>180/100 Dextrose (D5w) 500 mls @ 0 mls/hr IV ONCE PRN; Protocol PRN Reason: Adult Acute Hypoglycemia Prot Dextrose (D10w) 125 mls @ 750 mls/hr IV PRN PRN; Protocol PRN Reason: Adult Acute Hypoglycemia Nursing Protocol Dextrose (D10w) 250 mls @ 1,000 mls/hr IV PRN PRN; Protocol PRN Reason: Adult Acute Hypoglycemia Nursing Protocol Heparin Sodium/Sodium Chloride (Heparin Drip) 25,000 unit in 500 mls @ 0 mls/hr IV CONT [facility]ANG; Protocol Last Admin: 09/27/24 08:43 Dose: 13.93 unit/kg/hr, 35 mls/hr Insulin Human Lispro (Insulin Lispro 100 Unit/1 Ml) 0 unit SUBCUT WM&BEDTIME HANG; Protocol Last Admin: 09/27/24 07:59 Dose: Not Given Isosorbide Mononitrate (Isosorbide Mononitrate Er 30 Mg Tablet) 30 mg PO DAILY [facility] Last Admin: 09/26/24 10:38 Dose: 30 mg Losartan Potassium (Losartan 50 Mg Tablet) 100 mg PO DAILY [facility] Last Admin: 09/27/24 08:42 Dose: 100 mg Morphine Sulfate (Morphine 4 Mg/Ml Sdv 1 Ml) 2 mg IVP Q4H PRN PRN Reason: SEVERE PAIN Ondansetron HCl (Ondansetron 2 Mg/Ml Sdv 2 Ml) 4 mg IVP Q6H PRN PRN Reason: NAUSEA AND VOMITING Pantoprazole Sodium (Pantoprazole 40 Mg Sdv) 40 mg IVP BID [facility] Last Admin: 09/27/24 08:42 Dose: 40 mg Senna/Docusate Sodium (Sennosides-Docusate Tablet) 1 tab PO DAILY [facility] Last Admin: 09/27/24 08:47 Dose: Not Given Vitals/I&O/Wt Last Vital Signs Temp 98.9 F 09/27/24 19:49 Pulse 73 09/27/24 19:49 Resp 21 H 09/27/24 16:03 BP 109/57 09/27/24 19:49 Pulse Ox 99 09/27/24 16:00 O2 Del Method Room Air 09/27/24 16:00 09/27/24 09/27/24 09/27/24 06:59 14:59 22:59 Intake Total 1238.833 / 1238.833 822 / 2060.833 Balance 1238.833 / 1238.833 822 / 2060.833 Weight last 48 hrs Weight 125.362 kg Weight 125.6 kg Weight 128.537 kg Weight 128.537 kg Physical Exam 2 Narrative: General: No acute distress, AO x3 HEENT: PERRLA, pupils bilaterally equal and reactive, pallors not present Chest: Normal vesicular breath sounds, no added sounds, equal good air entry bilaterally CVS: S1-S2 regular, no murmurs, no tachycardia, no gallops, no rubs Abdomen: Soft, nontender, no organomegaly, bowel sounds present Neuro: No focal deficits, no facial deformity, AO x3, power 5/5 in all limbs Data 09/27/24 05:31 09/26/24 04:54 Micro: Microbiology 09/26/24 21:30 Occult Blood (FIT) - Final Stool A&P Assessment and plan (1) Hypertension: Qualifiers: Hypertension type: primary hypertension Qualified Code(s): I10 - Essential (primary) hypertension (2) Controlled type 2 diabetes mellitus: Qualifiers: Diabetes mellitus half-way insulin use: with half-way use Diabetes mellitus complication status: without complication Qualified Code(s): E11.9 - Type 2 diabetes mellitus without complications; Z79.4 - MCFP (current) use of insulin (3) Non-STEMI (non-ST elevated myocardial infarction): (4) Anemia: Qualifiers: Anemia type: other cause Other causes of anemia: other cause, not classified Qualified Code(s): D64.89 - Other specified anemias Plan Non-STEMI Start ACS protocol Requested echo Dr. Ames consulted No active chest pain ST depression on EKG significant delta troponin No previous history of IN, CHF Hypertension: Will continue losartan, add Coreg: Need optimization of antihypertensive regimen If blood pressure raise above 140s consistently then she may benefit from addition of hydrochlorothiazide and amlodipine Type 2 diabetes: Insulin with sliding scale check A1c level along lipid panel Full code Consistent carb diet DVT prophylaxis: Currently on therapeutic Lovenox Cough on laying back: Possible GERD: Continue Protonix September 26, 2024 Patient admitted overnight with NSTEMI. Currently denies any chest pain. Thus far she has had treatment with aspirin, Plavix, Lovenox 120 mg 2 doses. Case discussed with cardiology. There is concern that patient has Anemia. Low hemoglobin of 9.0 at night, 8.8 this morning. Uncertain cause of anemia at this point. Patient denies any melena or hematemesis recently. Reports a history of epigastric burning over the past week but states this is new and has not bothered her in the past. Review of chart shows patient takes naproxen cirrhosis gastritis may be a possibility. Will obtain fecal occult blood testing. If positive to proceed with endoscopic evaluation prior to cardiac cath. Additionally obtain iron panel, ferritin, TIBC, liver panel to evaluate for elevated bilirubin for hemolysis, obtain B12 and folate levels. TSH reveals normal. Patient denies any known history of anemia, however there is no baseline hemoglobin in the system to compare this to. September 27, 2024 Intermittent chest discomfort. Hb down to 7.6 today, Transfuse 1PRBC with target Hb of 9.[address] abdomen pelvis without abdominal bleeding. FOBT +, no mary steven ,consult general surgery to assess for endoscopic evaluation. CT abd incidentally noted presence of B/L solid lung and breast nodules concerning for metastasis. Obtain dedicated chest CT to further assess. No known h/o lung malignancy. perfrom CTA as will exclude PE additionally. Remote h/o ?cervical cancer for which patient had hysterectomy 20 years ago. has not had mammogram in many years. Last colonoscopy over 10 years ago- reportedly normal. PDMP PDMP Reviewed: Not Reviewed Attestations 2 Medical Necessity Statement*: CTA today , FOBT +, surgery consult , blood transfusion Coding Level of Care Code Acute Code for Chg Fwd Diagnoses Primary hypertension I10 Hypertension type: primary hypertension Controlled type 2 diabetes mellitus without complication, with long-term current use of insulin E11.9; Z79.4 Diabetes mellitus continuous churn buttermaker insulin use: with continuous churn buttermaker use Diabetes mellitus complication status: without complication Non-STEMI (non-ST elevated myocardial infarction) I21.4 Anemia due to other cause, not classified D64.89 Anemia type: other cause Other causes of anemia: other cause, not classified
[2024-09-27 20:30] LABS: Partial Thromboplastin Time 56.5 SECONDS (23.9-36.7)
[2024-09-27] MEDS: iohexol 350 mg/mL 500 mL Btl (per mL) IV (20:32)
[2024-09-27 20:38] LABS: Blood Urea Nitrogen 37 mg/dL (8-23); Carbon Dioxide 20 mmol/L (22-29); Chloride 104 mmol/L (98-107); Glomerular Filtration Rate 50.5 mL/min (90-130); Glucose 150 mg/dL (65-115); Osmolality Calculated 298 mOsm/kg (285-295); Sodium 138 mmol/L (136-145)
[2024-09-27 20:41] LABS: Anion Gap 18.7 (5-19); Potassium 4.7 mmol/L (3.5-5.1)
[2024-09-27 20:56] LABS: Glucose Point of Care 152 mg/dL (70-110)
[2024-09-27] MEDS: magnesium citrate Btl 296 mL 150 ML PO (21:16)
[2024-09-27] MEDS: bisacodyl 5 mg Tablet 40 MG PO (21:17)
--- NOTE | 2024-09-27 21:19 | P.CONIM_ITS ---
Providers/Reason For Consult 2 Consulting Physician/Specialty*: Dr. Dennison general surgery Reason for Consult*: GI bleed Attending Physician: Shilpi Troy MD Primary Care Provider: Cheko Lyon MD History of Present Illness History of Present Illness Shannan Plaza is a 59 year old female whom surgery was consulted for upper and lower scopes due to positive fecal occult blood test. Cardiology requesting this before they proceed with a heart cath. No melena, no hematochezia, no changes in bowel habits. Medications/Allergies Home Medications ?Medication ?Instructions ?Recorded ?Confirmed ?Last Taken ?Type allopurinol 100 mg tablet 100 mg PO DAILY #90 tabs 09/26/24 Unknown Rx losartan 100 mg tablet See Rx Instructions .Route 0 01/16/24 09/26/24 Unknown Rx .COMPLEX #30 tabs fluconazole 150 mg tablet 150 mg PO Q3D 2 doses #2 tab s 09/09/24 09/26/24 Unknown Rx naproxen 500 mg tablet See Rx Instructions .Route 0 09/09/24 09/26/24 Unknown Rx .COMPLEX #180 tabs insulin glargine 100 unit/mL (3 See Rx Instructions GARNICA BCUT 09/22/24 09/26/24 Unknown Rx mL) subcutaneous pen (Basaglar .COMPLEX #15 mL KwikPen U-100 Insulin) spironolactone 25 mg tablet See Rx Instructions .Route 09/22/24 09/26/24 Unknown Rx .COMPLEX #90 tabs Allergies Allergy/AdvReac Type Severity Reaction Status Date / Time No Known Allergies Allergy Verified 03/25/24 08:24 Current Medications Generic Name Dose Route Start Last Admin Trade Name Alexander PRN Reason Stop Dose Admin Acetaminophen 500 mg 09/25/24 23:27 09/27/24 00:19 Acetaminophen 500 Mg Tablet PO 500 mg Q4H PRN Administration fever Aspirin 81 mg 09/26/24 09:00 09/27/24 08:42 Aspirin 81 Mg Ec Tablet PO 81 mg DAILY [facility] Administration Atorvastatin Calcium 80 mg 09/26/24 09:00 09/27/24 08:42 Atorvastatin 40 Mg Tablet PO 80 mg DAILY [facility] Administration Carvedilol 6.25 mg 09/26/24 00:20 09/27/24 17:46 Carvedilol 6.25 Mg Tablet PO 6.25 mg BID [facility] Administration Ceftriaxone Sodium 1,000 mg 09/27/24 12:15 09/27/24 12:52 Ceftriaxone 1,000 Mg Sdv IVP 1,000 mg Q24H [facility] Administration Protocol Clopidogrel Bisulfate 75 mg 09/26/24 09:00 09/27/24 08:42 Clopidogrel 75 Mg Tablet PO 75 mg DAILY [facility] Administration Heparin Sodium/Sodium Chloride 25,000 unit in 500 mls @ 0 mls/hr 09/26/24 17:00 09/27/24 20:39 Heparin Drip IV 13.93 unit/kg/hr CONT [facility] 35 mls/hr Titration Protocol Per Protocol Insulin Human Lispro 0 unit 09/26/24 08:00 09/27/24 21:06 Insulin Lispro 100 Unit/1 Ml SUBCUT Not Given WM&BEDTIME [facility] Protocol Isosorbide Mononitrate 30 mg 09/26/24 09:30 09/27/24 15:49 Isosorbide Mononitrate Er 30 Mg Tablet PO Not Given DAILY [facility] Losartan Potassium 100 mg 09/26/24 09:00 09/27/24 08:42 Losartan 50 Mg Tablet PO 100 mg DAILY [facility] Administration Pantoprazole Sodium 40 mg 09/26/24 09:00 09/27/24 17:45 Pantoprazole 40 Mg Sdv IVP 40 mg BID [facility] Administration Senna/Docusate Sodium 1 tab 09/26/24 09:00 09/27/24 08:47 Sennosides-Docusate Tablet PO Not Given DAILY [facility] PFSH Acute 2 PFSH: Medical History Controlled type 2 diabetes mellitus Hypertension Social History Smoking and tobacco/nicotine status: unknown if used tobacco/nicotine Vitals/I&O/Wt Last Vital Signs Temp 97.5 F L 09/27/24 20:00 Pulse 71 09/27/24 20:00 Resp 19 H 09/27/24 20:00 BP 109/57 09/27/24 20:00 Pulse Ox 99 09/27/24 16:00 O2 Del Method Room Air 09/27/24 16:00 09/27/24 09/27/24 09/27/24 06:59 14:59 22:59 Intake Total 1238.833 / 4184.762 4723.417 / 2441.250 Balance 1238.833 / 8876.770 2526.417 / 2441.250 Weight last 48 hrs Weight 276 lb 6 oz Weight 276 lb 14.4 oz Weight 283 lb 6 oz Weight 283 lb 6 oz Physical Exam 2 Narrative: Chest: Unlabored breathing room air. No lymphadenopathy. Heart: Regular rate and rhythm. Abdomen: Soft, nontender, nondistended. No masses or lymphadenopathy. Data 09/28/24 02:15 09/28/24 02:15 Micro: Microbiology 09/26/24 21:30 Occult Blood (FIT) - Final Stool A&P Assessment and plan (1) GI bleed: Plan 59-year-old female presenting with chest pain. Surgery consulted for upper and lower scopes prior to heart cath. Will prep and plan for endoscopy on 09/28. PDMP PDMP Reviewed: Not Reviewed Coding Level of Care Code 78006 Diagnoses GI bleed K92.2
[2024-09-28] VITALS (12 sets, daily range): BP systolic 100–144; BP diastolic 53–74; PULSE 65–75; RESP 14–23; TEMP 36.4–36.9; O2SAT 97–100
[2024-09-28 03:55] LABS: Basophils % 0.2 %; Eosinophils # 0.1 10^3/uL (0.0-0.8); Eosinophils % 0.7 %; Hematocrit 30.3 % (36-47); Lymphocytes # 1.9 10^3/uL (0.8-4.8); Mean Corpuscular HGB Conc 28.7 g/dL (30-55); Mean Corpuscular Hemoglobin 21.7 pg (27-33); Mean Corpuscular Volume 75.6 fl (85-98); Mean Platelet Volume 10.4 fL (7.4-10.4); Monocytes # 0.7 10^3/uL (0.2-0.9); Monocytes % 8.4 %; Neutrophils # 5.86 10^3/uL (1.8-7.7); Neutrophils % 68.2 %; Nucleated Red Blood Cells % 0 %; Platelet Count 149 10^3/cmm (157-399); Red Blood Count 4.01 10^6/uL (3.85-5.65); White Blood Count 8.59 10^3/uL (3.29-11.43)
[2024-09-28 04:20] LABS: Alanine Aminotransferase 15 U/L (0-33); Albumin Level 3.6 g/dL (3.5-5.2); Alkaline Phosphatase 95 U/L (35-105); Aspartate Amino Transferase 32 U/L (0-32); Blood Urea Nitrogen 37 mg/dL (8-23); Carbon Dioxide 20 mmol/L (22-29); Chloride 104 mmol/L (98-107); Globulin 4.1 g/dL (1.3-4.6); Glomerular Filtration Rate 45.7 mL/min (90-130); Glucose 141 mg/dL (65-115); Osmolality Calculated 297 mOsm/kg (285-295); Sodium 138 mmol/L (136-145); Total Bilirubin 0.6 mg/dL (0.15-1.2); Total Protein 7.7 g/dL (6.6-8.7)
[2024-09-28 04:34] LABS: Partial Thromboplastin Time 66.8 SECONDS (23.9-36.7)
[2024-09-28 04:46] LABS: Anion Gap 18.9 (5-19); Potassium 4.9 mmol/L (3.5-5.1)
[2024-09-28 06:34] LABS: Glucose Point of Care 167 mg/dL (70-110)
--- NOTE | 2024-09-28 08:36 | P.PN_ITS ---
Subjective 2 Subjective: No hematochezia, no melena Prep administered On heparin drip Vitals/I&O/Wt Last Vital Signs Temp 97.5 F L 09/28/24 08:00 Pulse 68 09/28/24 08:00 Resp 20 H 09/28/24 08:00 BP 114/61 09/28/24 08:00 Pulse Ox 97 09/28/24 08:00 O2 Del Method Room Air 09/28/24 08:00 09/27/24 09/28/24 09/28/24 22:59 06:59 14:59 Intake Total 1202.417 / 2441.250 281.75 / 2723.000 Balance 1202.417 / 2441.250 281.75 / 2723.000 Weight last 48 hrs Weight 276 lb 6 oz Weight 276 lb 14.4 oz Physical Exam 2 Narrative: Chest: Unlabored breathing room air. No lymphadenopathy. Heart: Regular rate and rhythm. Abdomen: Soft, nontender, nondistended. No masses or lymphadenopathy. Data 09/28/24 02:15 09/28/24 02:15 A&P Assessment and plan (1) GI bleed: Plan 59-year-old female consulted for EGD and colonoscopy prior to heart cath. Cardiology holding off on heart cath. Patient on heparin drip and at high risk of complications in the setting of an NSTEMI. Discussed with hospitalist. Will hold off on endoscopy at this time. No clinical evidence of GI bleed. PDMP PDMP Reviewed: Not Reviewed Attestations 2 Medical Necessity Statement*: N/A Coding Level of Care Code 25649 Diagnoses GI bleed K92.2
--- NOTE | 2024-09-28 09:15 | P.PN_ITS ---
Subjective 2 Subjective: patient has no chest pain. She is scheduled for colonoscopy and upper endoscopy today. The vital signs remained stable. No arrhythmias on the monitor. Medications: Medication Review Details: Current Medications Acetaminophen (Acetaminophen 500 Mg Tablet) 500 mg PO Q4H PRN PRN Reason: fever Last Admin: 09/27/24 00:19 Dose: 500 mg Albuterol/Ipratropium (Ipratropium-Albuterol 3 Ml Neb) 3 ml INHALATION Q6H PRN PRN Reason: SHORTNESS OF BREATH Aspirin (Aspirin 81 Mg Ec Tablet) 81 mg PO DAILY [facility] Last Admin: 09/27/24 08:42 Dose: 81 mg Atorvastatin Calcium (Atorvastatin 40 Mg Tablet) 80 mg PO DAILY HANG Last Admin: 09/27/24 08:42 Dose: 80 mg Carvedilol (Carvedilol 6.25 Mg Tablet) 6.25 mg PO BID [facility] Last Admin: 09/27/24 17:46 Dose: 6.25 mg Ceftriaxone Sodium (Ceftriaxone 1,000 Mg Sdv) 1,000 mg IVP Q24H HANG; Protocol Last Admin: 09/27/24 12:52 Dose: 1,000 mg Clopidogrel Bisulfate (Clopidogrel 75 Mg Tablet) 75 mg PO DAILY [facility] Last Admin: 09/27/24 08:42 Dose: 75 mg Glucagon (Glucagon 1 Mg/Ml Kit 1 Ml) 1 mg IM ONCE PRN; Protocol PRN Reason: Adult Acute Hypoglycemia Nursing Prot. Heparin Sodium (Porcine) (Heparin 5,000 Unit/Ml Inj 1 Ml) 0 unit IVP PRN PRN; Protocol PRN Reason: Heparin Weight Based Protocol -Subsequent Bolus Hydralazine HCl (Hydralazine 20 Mg/Ml Inj 1 Ml) 10 mg IVP Q4H PRN PRN Reason: bp>180/100 Dextrose (D5w) 500 mls @ 0 mls/hr IV ONCE PRN; Protocol PRN Reason: Adult Acute Hypoglycemia Prot Dextrose (D10w) 125 mls @ 750 mls/hr IV PRN PRN; Protocol PRN Reason: Adult Acute Hypoglycemia Nursing Protocol Dextrose (D10w) 250 mls @ 1,000 mls/hr IV PRN PRN; Protocol PRN Reason: Adult Acute Hypoglycemia Nursing Protocol Heparin Sodium/Sodium Chloride (Heparin Drip) 25,000 unit in 500 mls @ 0 mls/hr IV CONT HANG; Protocol Last Titration: 09/28/24 04:42 Dose: 13.93 unit/kg/hr, 35 mls/hr Insulin Human Lispro (Insulin Lispro 100 Unit/1 Ml) 0 unit SUBCUT WM&BEDTIME [facility]; Protocol Last Admin: 09/28/24 07:48 Dose: Not Given Isosorbide Mononitrate (Isosorbide Mononitrate Er 30 Mg Tablet) 30 mg PO DAILY [facility] Last Admin: 09/27/24 15:49 Dose: Not Given Losartan Potassium (Losartan 50 Mg Tablet) 100 mg PO DAILY [facility] Last Admin: 09/27/24 08:42 Dose: 100 mg Morphine Sulfate (Morphine 4 Mg/Ml Sdv 1 Ml) 2 mg IVP Q4H PRN PRN Reason: SEVERE PAIN Ondansetron HCl (Ondansetron 2 Mg/Ml Sdv 2 Ml) 4 mg IVP Q6H PRN PRN Reason: NAUSEA AND VOMITING Pantoprazole Sodium (Pantoprazole 40 Mg Sdv) 40 mg IVP BID [facility] Last Admin: 09/27/24 17:45 Dose: 40 mg Senna/Docusate Sodium (Sennosides-Docusate Tablet) 1 tab PO DAILY [facility] Last Admin: 09/27/24 08:47 Dose: Not Given Sodium Chloride (Sodium Chloride 0.9% 100 Ml Bag) 50 ml IV PRN PRN PRN Reason: Blood transfusion prime and flush Stop: 09/28/24 12:14 Vitals/I&O/Wt Last Vital Signs Temp 97.5 F L 09/28/24 08:00 Pulse 68 09/28/24 08:00 Resp 20 H 09/28/24 08:00 BP 114/61 09/28/24 08:00 Pulse Ox 97 09/28/24 08:00 O2 Del Method Room Air 09/28/24 08:00 09/27/24 09/28/24 09/28/24 22:59 06:59 14:59 Intake Total 1202.417 / 2441.250 281.75 / 2723.000 Balance 1202.417 / 2441.250 281.75 / 2723.000 Weight last 48 hrs Weight 276 lb 6 oz Weight 276 lb 14.4 oz Physical Exam 2 Narrative: GENERAL: The patient is alert and oriented times three. Not in any acute distress. Obese HEENT: No significant pallor, icterus or lymphadenopathy.Oral cavity: There are no mucous membrane lesions. NECK: Trachea appears to be central. No masses noted. No JVD or thyromegaly appreciated. RESPIRATORY: Chest is symmetrical. No intercostals muscle retraction or any accessory muscle activation. There is no chest wall tenderness. Breath sounds are heard bilaterally. No rales or rhonchi heard. No evidence of any consolidation. BREASTS: Deferred. HEART: The heart sounds are normal. No S3 or S4. No significant murmurs. No pericardial rub ABDOMEN: No vessel pulsations or distention. No tenderness. No organomegaly appreciated. Bowel sounds are normally heard. : Deferred. RECTAL: Deferred. LYMPHATIC: No lymphadenopathy noted in the neck. EXTREMITIES: Trace edema bilaterally with no cyanosis. MUSCULOSKELETAL: No acute joint deformities or swelling SKIN: There are no significant rashes or ecchymosis NEUROPSYCHIATRIC: The patient is alert and oriented x3. Appears to be in a good mood. No tremors or rigidity noted. Data 09/28/24 02:15 09/28/24 02:15 Other Labs: Laboratory Last Values WBC 8.59 10^3/uL (3.29-11.43) 09/28/24 02:15 RBC 4.01 10^6/uL (3.85-5.65) 09/28/24 02:15 Hgb 8.70 g/dL (11.27-16.99) L 09/28/24 02:15 Hct 30.3 % (36-47) L 09/28/24 02:15 MCV 75.6 fl (85-98) L 09/28/24 02:15 MCH 21.7 pg (27-33) L 09/28/24 02:15 MCHC 28.7 g/dL (30-55) L 09/28/24 02:15 RDW 18.0 % (12.1-15.1) H 09/28/24 02:15 Plt Count 149 10^3/cmm (157-399) L 09/28/24 02:15 MPV 10.4 fL (7.4-10.4) 09/28/24 02:15 Neut % (Auto) 68.2 % 09/28/24 02:15 Lymph % (Auto) 22.0 % 09/28/24 02:15 [place] % (Auto) 8.4 % 09/28/24 02:15 Eos % (Auto) 0.7 % 09/28/24 02:15 Baso % (Auto) 0.2 % 09/28/24 02:15 Neut # (Auto) 5.86 10^3/uL (1.8-7.7) 09/28/24 02:15 Lymph # (Auto) 1.9 10^3/uL (0.8-4.8) 09/28/24 02:15 [place] # (Auto) 0.7 10^3/uL (0.2-0.9) 09/28/24 02:15 Eos # (Auto) 0.1 10^3/uL (0.0-0.8) 09/28/24 02:15 Baso # (Auto) 0.0 10^3/uL (0.0-0.1) 09/28/24 02:15 Nucleated RBC % (auto) 0 % 09/28/24 02:15 Nucleated RBCs # 0.0 /100WBC 09/28/24 02:15 APTT 66.8 SECONDS (23.9-36.7) H 09/28/24 02:15 D-Dimer 0.60 ug/mLFEU (0-0.59) H 09/25/24 19:38 Sodium 138 mmol/L (136-145) 09/28/24 02:15 Potassium 4.9 mmol/L (3.5-5.1) 09/28/24 02:15 Chloride 104 mmol/L (98-107) 09/28/24 02:15 Carbon Dioxide 20 mmol/L (22-29) L 09/28/24 02:15 Anion Gap 18.9 (5-19) 09/28/24 02:15 BUN 37 mg/dL (8-23) H 09/28/24 02:15 Creatinine 1.2 mg/dL (0.5-0.9) H 09/28/24 02:15 GFR Calculation 45.7 mL/min (90-130) L 09/28/24 02:15 Glucose 141 mg/dL (65-115) H 09/28/24 02:15 POC Glucose 167 mg/dL (70-110) H 09/28/24 06:25 Estimat Average Glucose 171 09/25/24 19:38 Hemoglobin A1c 7.6 % (4.0-6.0) H 09/25/24 19:38 Calculated Osmolality 297 mOsm/kg (285-295) H 09/28/24 02:15 Calcium 9.0 mg/dL (8.5-10.5) 09/28/24 02:15 Magnesium 2.0 mg/dL (1.7-2.3) 09/26/24 04:54 Iron 34 ug/dL (37-145) L 09/26/24 04:54 TIBC 316 mcg/dl 09/26/24 04:54 % Saturation 10.7 % (20-50) L 09/26/24 04:54 Unsat Iron Binding 282 ug/dL (112-347) 09/26/24 04:54 Ferritin 22 ng/mL (15-150) 09/26/24 04:54 Total Bilirubin 0.6 mg/dL (0.15-1.2) 09/28/24 02:15 Direct Bilirubin 0.20 mg/dL (0.00-0.30) 09/26/24 04:54 AST 32 U/L (0-32) 09/28/24 02:15 ALT 15 U/L (0-33) 09/28/24 02:15 Alkaline Phosphatase 95 U/L (35-105) 09/28/24 02:15 Troponin T Baseline 33 ng/L (0-10) H 09/25/24 19:38 Troponin T 120 Minute 58.26 ng/L (0-10) H 09/25/24 20:57 Delta Troponin T 25.26 ABS# (0-10) H* 09/25/24 20:57 Troponin T Hi Sens 6Hr 151.8 ng/L (0-10) H 09/26/24 01:06 Troponin T Hi Sens 6Hr Delta 118.8 ng/L (0-12) H* 09/26/24 01:06 C-Reactive Protein 19.6 mg/L (0.0-4.9) H 09/26/24 04:54 Total Protein 7.7 g/dL (6.6-8.7) 09/28/24 02:15 Albumin 3.6 g/dL (3.5-5.2) 09/28/24 02:15 Globulin 4.1 g/dL (1.3-4.6) 09/28/24 02:15 Vitamin B12 Cancelled 09/26/24 04:54 Folate 12.1 ng/mL (4.8-37.3) 09/26/24 04:54 Urine Color Red (Yellow) A 09/27/24 00:22 Urine Appearance Turbid (CLEAR) A 09/27/24 00:22 Urine pH 5.0 (5-7) 09/27/24 00:22 Ur Specific [place] 1.013 (1.005-1.030) 09/27/24 00:22 Urine Protein 2+ (Negative) A 09/27/24 00:22 Urine Glucose (UA) Negative (Normal) 09/27/24 00:22 Urine Ketones Negative (Negative) 09/27/24 00:22 Urine Blood 3+ (Negative) A 09/27/24 00:22 Urine Nitrate Negative (Negative) 09/27/24 00:22 Urine Bilirubin 1+ (Negative) H 09/27/24 00:22 Urine Urobilinogen 0.2 mg/dL (Negative) 09/27/24 00:22 Ur Leukocyte Esterase 2+ (Negative) A 09/27/24 00:22 Urine RBC >100 /hpf (0-2) H 09/27/24 00:22 Urine WBC >100 /hpf (0-5) H 09/27/24 00:22 Ur Squamous Epith Cells 0-5 /hpf (0-5) 09/27/24 00:22 Amorphous Sediment Not Reportable 09/27/24 00:22 Urine Bacteria Trace /hpf (NONE) 09/27/24 00:22 Hyaline Casts 1.13 /lpf 09/27/24 00:22 Blood Type O Positive 09/27/24 13:11 Rho(D) Type Rh positive 09/27/24 13:11 Antibody Screen Negative 09/27/24 13:11 Crossmatch See Detail 09/27/24 13:11 Other data: Chest CT from yesterday 1. Patchy ground-glass airspace opacities suggestive of an underlying infectious or inflammatory process. 2. Several bilateral pulmonary nodules, not well visualized given motion artifact, the largest which in the right lower lobe measures 8.9 mm, series 7, image 259. Consider non-emergent PET/CT or tissue sampling.(Reference: Malcolm) 3. Left thyroid lobe 12.7 mm low-density nodule, ultrasound could further evaluate this. 4. Cardiomegaly. 5. Spleen enlarged 15 cm. 6. Hepatic nodularity suspected suggestive of a cirrhotic liver. 7. Multilevel bridging degenerative changes throughout the spine. A&P Assessment and plan (1) Non-STEMI (non-ST elevated myocardial infarction): Patient has not had any recurrence of chest pain Since yesterday. May continue on the current treatment. (2) Controlled type 2 diabetes mellitus: The blood sugar is fairly under control. This may be closely monitored. Qualifiers: Diabetes mellitus senior living insulin use: with java scala developer use Diabetes mellitus complication status: without complication Qualified Code(s): E11.9 - Type 2 diabetes mellitus without complications; Z79.4 - prison (current) use of insulin (3) Hypertension: The blood pressure is currently in the normal range. Seems to be tolerating medication so far well. Continue on the current medications. Qualifiers: Hypertension type: primary hypertension Qualified Code(s): I10 - Essential (primary) hypertension (4) Anemia: The etiology is unclear. No evidence of any active bleed. Malignancy could be a contributing factor. Patient requires further workup. Since she is fairly stable, may hold off on the invasive cardiac workup at this time Qualifiers: Anemia type: other cause Other causes of anemia: other cause, not classified Qualified Code(s): D64.89 - Other specified anemias (5) Renal insufficiency: Etiology is not clear. Possibly from the diabetes. Repeat BMP today Plan The other problems are GERD Obesity Mild hyperkalemia Lung lesions? Patient may require tissue biopsy to further evaluate. If she continues to remain stable with no evidence of any active bleed based on endoscopies, we may consider doing the cardiac catheterization tomorrow. Patient will be kept n.p.o. after midnight. PDMP PDMP Reviewed: Not Reviewed Attestations 2 Medical Necessity Statement*: Patient requires continued hospital stay for close monitoring and further management Coding Level of Care Code 39750 Diagnoses Non-STEMI (non-ST elevated myocardial infarction) I21.4 Controlled type 2 diabetes mellitus without complication, with long-term current use of insulin E11.9; Z79.4 Diabetes mellitus senior living insulin use: with java scala developer use Diabetes mellitus complication status: without complication Primary hypertension I10 Hypertension type: primary hypertension Anemia due to other cause, not classified D64.89 Anemia type: other cause Other causes of anemia: other cause, not classified Renal insufficiency N28.9
--- NOTE | 2024-09-28 09:48 | P.PN_ITS ---
Subjective 2 Subjective: 59-year-old female with a past medical h istory of hypertension, type 2 diabetes mellitus, gout, anemia, and venous insufficiency of both lower extremities who presented with chest pain. Patient described the pain as a burning sensation over her left chest that started on Saturday and was associated with nausea and left arm numbness. She takes losartan and spironolactone for hypertension, allopurinol for gout, and Lantus 30 units in the morning for diabetes. She sees Dr. Seth for her medical care. Patient has had a prior colonoscopy around age 48, which was normal. She is likely due for a repeat screening. Patient also reports a remote history of anemia over 20 years ago related to benign fibroid tumors. Patient noted shortness of breath since the onset of chest pain. On admission (09/26/2024), Patient was found to have elevated troponins (33 initially, increasing to 58 after 2 hours and 151 after 6 hours), consistent with a Non-ST Elevation Myocardial Infarction. Initial laboratory findings also revealed a potassium of 5.6 and hemoglobin of 9.0, which subsequently decreased to 7.6, then increased to 8.7 after 1 unit of packed red blood cells was transfused. Patient was also noted to have leukocytosis. A urinalysis showed blood in Patient's urine, and she reported a history of hematuria related to recurrent urinary infections. Patient was on Ozempic for close to two years, achieving a 100-pound weight loss but discontinued it on 06/24/2024. During her hospitalization, Patient receive aspirin, plavix and was started on heparin drip, and 1 unit of packed red blood cells for acute blood loss anemia. She remained hemodynamically stable. The initial plan for cardiac catheterization was deferred due to acute anemia requiring transfusion. Patient was started on high-intensity statin therapy with atorvastatin 80 mg daily, carvedilol 6.25 mg twice daily for blood pressure control, and Imdur [address] scan of the chest, abdomen, and pelvis revealed multiple incidental findings, including bilateral pulmonary nodules (largest measuring 8.9 mm in the right lower lobe), a 12.7 mm left thyroid nodule, cardiomegaly, splenomegaly (15 cm), nodularity of the liver possibly suggesting cirrhosis, multiple bilateral breast nodules, and bladder wall thickening suggestive of cystitis. An echocardiogram showed an ejection fraction of 65% with grade 1 diastolic dysfunction and normal wall motion. Patient's hemocult was positive. Patient denies any history of smoking or malignancy Subjective 09/28/2024 Did not have any bleeding episodes overnight. Also denied CP or dyspnea. Medications: Reviewed: Yes Vitals/I&O/Wt Last Vital Signs Temp 97.5 F L 09/28/24 08:00 Pulse 68 09/28/24 08:00 Resp 20 H 09/28/24 08:00 BP 114/61 09/28/24 08:00 Pulse Ox 97 09/28/24 08:00 O2 Del Method Room Air 09/28/24 08:00 09/27/24 09/28/24 09/28/24 22:59 06:59 14:59 Intake Total 1202.417 / 2441.250 281.75 / 2723.000 Balance 1202.417 / 2441.250 281.75 / 2723.000 Weight last 48 hrs Weight 125.362 kg Weight 125.6 kg Physical Exam 2 Narrative: GENERAL: The patient is alert and oriented times three. Not in any acute distress. Obese HEENT: Grossly unremarkable NECK: Trachea appears to be central. No masses noted. No JVD or thyromegaly appreciated. RESPIRATORY: Chest is symmetrical. No intercostals muscle retraction or any accessory muscle activation. There is no chest wall tenderness. Breath sounds are heard bilaterally. No rales or rhonchi heard. No evidence of any consolidation. BREASTS: Deferred. HEART: The heart sounds are normal. No S3 or S4. No significant murmurs. No pericardial rub ABDOMEN: No vessel pulsations or distention. No tenderness. No organomegaly appreciated. Bowel sounds are normally heard. : Deferred. RECTAL: Deferred. 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 Initial plan for cardiac catheterization was deferred due to acute anemia requiring transfusion. - Echo stable with out regional wall motion abnormality, pEF Plan: 1. Continue aspirin, Plavix, statin, coreg, imdur and heparin drip, 2. Telemetry monitoring and serial troponins. 3. Cardiac catheterization with possible percutaneous coronary intervention once hemoglobin is stable and bleeding risk is assessed. Acute Blood Loss Anemia - Hemoglobin decreased from 9.0 to 7.6, requiring transfusion of 1 unit of packed red blood cells. Etiology unclear, though patient reports history of anemia related to fibroid tumors over 20 years ago. - Hemocolt was positive Differential Diagnosis: 1. Gastrointestinal blood loss. 2. source of blood loss. Plan: 1. Hemoglobin and hematocrit monitoring. 2. Surgery consultation for consideration of upper endoscopy and colonoscopy once cardiac status is stabilized. Urinary tract infection - UA noted postive leukocyte esterase > 100 WBC Plan: 1. Started on Rocephin 1 g daily Hypertension - Noted history of hypertension, currently on coreg, losartan and spironolactone therapy. Plan: 1. Continue current anti-hypertensive regimen. Type 2 Diabetes Mellitus - History of type 2 diabetes mellitus, currently on Lantus 30 units in the morning. Patient was previously on Ozempic and weight loss of 100 lbs, but discontinued on 06/24/2024. - Glucose stable - A1c elevated Plan: 1.Continue current regimen Venous Insufficiency of Bilateral Lower Extremities - Noted history of venous insufficiency affecting both lower extremities. Plan: 1. Encourage use of compression stockings. Incidental Findings on CT Chest/Abdomen/Pelvis - Multiple bilateral pulmonary nodules, largest measuring 8.9 mm in the right lower lobe. - 12.7 mm left thyroid nodule. - Cardiomegaly and splenomegaly. - Nodularity of the liver, possibly suggesting cirrhosis. - Multiple bilateral breast nodules. - Bladder wall thickening suggestive of cystitis. Plan: 1. Oncology consultation outpatient for further evaluation of pulmonary and breast nodules, consider PET scan. 2. Thyroid ultrasound and TSH to assess for hyperthyroidism and evaluate thyroid nodule. 3. Assess liver function tests and consider hepatology consultation outpatient for evaluation of liver nodularity and splenomegaly.. PDMP PDMP Reviewed: Not Reviewed Attestations 2 Medical Necessity Statement*: CTA today , FOBT +, surgery consult , blood transfusion Coding Level of Care Code Acute Code for Chg Fwd Diagnoses Primary hypertension I10 Hypertension type: primary hypertension Controlled type 2 diabetes mellitus without complication, with long-term current use of insulin E11.9; Z79.4 Diabetes mellitus complication status: without complication Diabetes mellitus applications support analyst insulin use: with applications support analyst use Non-STEMI (non-ST elevated myocardial infarction) I21.4 Anemia due to other cause, not classified D64.89 Anemia type: other cause Other causes of anemia: other cause, not classified
[2024-09-28] MEDS: pantoprazole 40 mg SDV IVP ×2 (10:25→17:40)
[2024-09-28] MEDS: heparin drip 25,000 UNIT/500 ML PREMIX 35 UNIT IV (10:26)
--- NOTE | 2024-09-28 10:37 | ANES.PREANE2 ---
Pre-Anesthetic Assessment Height/Weight: Height 5 ft 7 in Weight 276 lb 6 oz Temp Pulse Resp BP Pulse Ox O2 Del Method 97.5 F L 68 20 H 114/61 97 Room Air 09/28/24 08:00 09/28/24 08:00 09/28/24 08:00 09/28/24 08:00 09/28/24 08:00 09/28/24 08:00 Preop Diagnosis: Anemia Operation Date: 09/28/24 12:00 Proposed Procedures p EGD(Not Applicable) - Vijay Dennison MD s Colonoscopy(Not Applicable) - Vijay Dennison MD Was Beta Skyler taken within 24 hours: N/A Was Clonidine taken within 24 hours: N/A Last intake: Intake Last Liquid Date 09/28/24 Last Liquid Time 00:00 Last Solid Date 09/27/24 Last Solid Time 17:00 Anesthetic Plan Other: Patient initially admitted 09/25/2024 for anemia and NSTEMI Initial ST depression on EKG with significant delta troponin. Cardiology following and states that she is currently stable. Do not feel she needs intervention at this time Echo performed showing EF 65% Patient has received PRBCs. Hemoglobin 8.7 this a.m. Type 2 diabetes on insulin. BS 167 Plan for MAC anesthesia Medications/Allergies Home Medications ?Medication ?Instructions ?Recorded ?Confirmed ?Last Taken ?Type allopurinol 100 mg tablet 100 mg PO DAILY #90 tabs 12/24/23 09/26/24 Unknown Rx losartan 100 mg tablet See Rx Instructions .Route 01/16/24 09/26/24 Unknown Rx .COMPLEX #30 tabs fluconazole 150 mg tablet 150 mg PO Q3D 2 doses #2 tabs 09/09/24 09/26/24 Unknown Rx naproxen 500 mg tablet See Rx Instructions .Route 09/09/24 09/26/24 Unknown Rx .COMPLEX #180 tabs insulin glargine 100 unit/mL (3 See Rx Instructions SUBCUT 09/22/24 09/26/24 Unknown Rx mL) subcutaneous pen (Basaglar .COMPLEX #15 mL KwikPen U-100 Insulin) spironolactone 25 mg tablet See Rx Instructions .Route 09/22/24 09/26/24 Unknown Rx .COMPLEX #90 tabs Allergies Allergy/AdvReac Type Severity Reaction Status Date / Time No Known Allergies Allergy Verified 03/25/24 08:24 Current Medications Generic Name Dose Route Start Last Admin Trade Name Alexander PRN Reason Stop Dose Admin Acetaminophen 500 mg 09/25/24 23:27 09/27/24 00:19 Acetaminophen 500 Mg Tablet PO 500 mg Q4H PRN Administration fever Aspirin 81 mg 09/26/24 09:00 09/27/24 08:42 Aspirin 81 Mg Ec Tablet PO 81 mg DAILY HANG Administration Atorvastatin Calcium 80 mg 09/26/24 09:00 09/27/24 08:42 Atorvastatin 40 Mg Tablet PO 80 mg DAILY HANG Administration Carvedilol 6.25 mg 09/26/24 00:20 09/27/24 17:46 Carvedilol 6.25 Mg Tablet PO 6.25 mg BID HANG Administration Ceftriaxone Sodium 1,000 mg 09/27/24 12:15 09/27/24 12:52 Ceftriaxone 1,000 Mg Sdv IVP 1,000 mg Q24H HANG Administration Protocol Clopidogrel Bisulfate 75 mg 09/26/24 09:00 09/27/24 08:42 Clopidogrel 75 Mg Tablet PO 75 mg DAILY HANG Administration Heparin Sodium/Sodium Chloride 25,000 unit in 500 mls @ 0 mls/hr 09/26/24 17:00 09/28/24 10:26 Heparin Drip IV 13.93 unit/kg/hr CONT HANG 35 mls/hr Administration Protocol Per Protocol Insulin Human Lispro 0 unit 09/26/24 08:00 09/28/24 07:48 Insulin Lispro 100 Unit/1 Ml SUBCUT Not Given WM&BEDTIME HANG Protocol Isosorbide Mononitrate 30 mg 09/26/24 09:30 09/27/24 15:49 Isosorbide Mononitrate Er 30 Mg Tablet PO Not Given DAILY HANG Losartan Potassium 100 mg 09/26/24 09:00 09/27/24 08:42 Losartan 50 Mg Tablet PO 100 mg DAILY HANG Administration Pantoprazole Sodium 40 mg 09/26/24 09:00 09/28/24 10:25 Pantoprazole 40 Mg Sdv IVP 40 mg BID HANG Administration Senna/Docusate Sodium 1 tab 09/26/24 09:00 09/28/24 10:32 Sennosides-Docusate Tablet PO Not Given DAILY [facility] Additional Medication Information Current Medications Acetaminophen (Acetaminophen 500 Mg Tablet) 500 mg PO Q4H PRN PRN Reason: fever Last Admin: 09/27/24 00:19 Dose: 500 mg Albuterol/Ipratropium (Ipratropium-Albuterol 3 Ml Neb) 3 ml INHALATION Q6H PRN PRN Reason: SHORTNESS OF BREATH Aspirin (Aspirin 81 Mg Ec Tablet) 81 mg PO DAILY [facility] Last Admin: 09/27/24 08:42 Dose: 81 mg Atorvastatin Calcium (Atorvastatin 40 Mg Tablet) 80 mg PO DAILY [facility] Last Admin: 09/27/24 08:42 Dose: 80 mg Carvedilol (Carvedilol 6.25 Mg Tablet) 6.25 mg PO BID [facility] Last Admin: 09/27/24 17:46 Dose: 6.25 mg Ceftriaxone Sodium (Ceftriaxone 1,000 Mg Sdv) 1,000 mg IVP Q24H HANG; Protocol Last Admin: 09/27/24 12:52 Dose: 1,000 mg Clopidogrel Bisulfate (Clopidogrel 75 Mg Tablet) 75 mg PO DAILY [facility] Last Admin: 09/27/24 08:42 Dose: 75 mg Glucagon (Glucagon 1 Mg/Ml Kit 1 Ml) 1 mg IM ONCE PRN; Protocol PRN Reason: Adult Acute Hypoglycemia Nursing Prot. Heparin Sodium (Porcine) (Heparin 5,000 Unit/Ml Inj 1 Ml) 0 unit IVP PRN PRN; Protocol PRN Reason: Heparin Weight Based Protocol -Subsequent Bolus Hydralazine HCl (Hydralazine 20 Mg/Ml Inj 1 Ml) 10 mg IVP Q4H PRN PRN Reason: bp>180/100 Dextrose (D5w) 500 mls @ 0 mls/hr IV ONCE PRN; Protocol PRN Reason: Adult Acute Hypoglycemia Prot Dextrose (D10w) 125 mls @ 750 mls/hr IV PRN PRN; Protocol PRN Reason: Adult Acute Hypoglycemia Nursing Protocol Dextrose (D10w) 250 mls @ 1,000 mls/hr IV PRN PRN; Protocol PRN Reason: Adult Acute Hypoglycemia Nursing Protocol Heparin Sodium/Sodium Chloride (Heparin Drip) 25,000 unit in 500 mls @ 0 mls/hr IV CONT HANG; Protocol Last Titration: 09/28/24 04:42 Dose: 13.93 unit/kg/hr, 35 mls/hr Insulin Human Lispro (Insulin Lispro 100 Unit/1 Ml) 0 unit SUBCUT WM&BEDTIME [facility]; Protocol Last Admin: 09/28/24 07:48 Dose: Not Given Isosorbide Mononitrate (Isosorbide Mononitrate Er 30 Mg Tablet) 30 mg PO DAILY [facility] Last Admin: 09/27/24 15:49 Dose: Not Given Losartan Potassium (Losartan 50 Mg Tablet) 100 mg PO DAILY [facility] Last Admin: 09/27/24 08:42 Dose: 100 mg Morphine Sulfate (Morphine 4 Mg/Ml Sdv 1 Ml) 2 mg IVP Q4H PRN PRN Reason: SEVERE PAIN Ondansetron HCl (Ondansetron 2 Mg/Ml Sdv 2 Ml) 4 mg IVP Q6H PRN PRN Reason: NAUSEA AND VOMITING Pantoprazole Sodium (Pantoprazole 40 Mg Sdv) 40 mg IVP BID [facility] Last Admin: 09/27/24 17:45 Dose: 40 mg Senna/Docusate Sodium (Sennosides-Docusate Tablet) 1 tab PO DAILY [facility] Last Admin: 09/27/24 08:47 Dose: Not Given Sodium Chloride (Sodium Chloride 0.9% 100 Ml Bag) 50 ml IV PRN PRN PRN Reason: Blood transfusion prime and flush Stop: 09/28/24 12:14 [facility] Anesthesia Medical History Controlled type 2 diabetes mellitus Hypertension Social History Smoking and tobacco/nicotine status: unknown if used tobacco/nicotine Data Anesthesia 09/28/24 02:15 09/28/24 02:15 Short CBC 09/27/24 09/28/24 Range/Units 05:31 02:15 WBC 9.14 8.59 (3.29-11.43) 10^3/uL Hgb 7.60 L 8.70 L (11.27-16.99) g/dL Hct 27.2 L 30.3 L (36-47) % MCV 76.0 L 75.6 L (85-98) fl Plt Count 172 149 L (157-399) 10^3/cmm Neut % (Auto) 63.8 68.2 % Neut # (Auto) 5.82 5.86 (1.8-7.7) 10^3/uL BMP 09/27/24 09/28/24 20:05 02:15 Sodium 138 138 Potassium 4.7 4.9 Chloride 104 104 Carbon Dioxide 20 L 20 L BUN 37 H 37 H Creatinine 1.1 H 1.2 H Glucose 150 H 141 H Calcium 9.0 9.0 Liver Function 09/26/24 09/28/24 Range/Units 04:54 02:15 Total Bilirubin 0.4 0.6 (0.15-1.2) mg/dL Direct Bilirubin 0.20 (0.00-0.30) mg/dL AST 36 H 32 (0-32) U/L ALT 16 15 (0-33) U/L Alkaline Phosphatase 103 95 (35-105) U/L Albumin 3.6 3.6 (3.5-5.2) g/dL Urine 09/27/24 Range/Units 00:22 Urine Color Red A (Yellow) Urine Appearance Turbid A (CLEAR) Urine pH 5.0 (5-7) Ur Specific [place] 1.013 (1.005-1.030) Urine Protein 2+ A (Negative) Urine Glucose (UA) Negative (Normal) Urine Ketones Negative (Negative) Urine Nitrate Negative (Negative) Urine Bilirubin 1+ H (Negative) Ur Leukocyte Esterase 2+ A (Negative) Urine RBC >100 H (0-2) /hpf Urine WBC >100 H (0-5) /hpf Blood Bank 09/27/24 13:11 Blood Type O Positive Rho(D) Type Rh positive Antibody Screen Negative Coags 09/26/24 09/26/24 09/27/24 13:58 22:35 05:34 APTT 36.7 64.0 H D 66.9 H 09/27/24 09/27/24 09/28/24 12:00 20:05 02:15 APTT 60.8 H 56.5 H 66.8 H Microbiology 09/27/24 00:22 Urine Culture - Preliminary Urine,Clean Catch Cardiac Studies: Echocardiogram 09/26/24
[2024-09-28 12:03] LABS: Glucose Point of Care 149 mg/dL (70-110)
[2024-09-28] MEDS: cefTRIAXone 1,000 mg SDV 1000 MG IVP (13:32)
--- NOTE | 2024-09-28 14:08 | PM.MISC ---
Miscellaneous Note Note: Cardiology clarified that they actually do want to proceed with endoscopy. Endoscopy at 1500.
--- NOTE | 2024-09-28 14:31 | PC.NURSE ---
off unit to gi lab for egd/colonoscopy. Heparin paused at approximately 1425 pm.
--- NOTE | 2024-09-28 15:18 | PM.MISC ---
Miscellaneous Note Note: No bleeding source on EGD/colonoscopy. See full report
--- NOTE | 2024-09-28 15:39 | ANE.PACU2 ---
Inpatient post-anesthesia follow up: Airway intact: Yes Vital signs: Temperature 97.6 F Pulse Rate 75 Respiratory Rate 16 Blood Pressure 119/62 Pulse Oximetry 99 Oxygen Delivery Me thod Room Air Oxygen Flow Rate Fraction of Inspir ed Oxygen Hydration adequate: Yes Nausea and vomiting: No Pain level: 1 Mental status: Baseline
--- NOTE | 2024-09-28 15:52 | PC.NURSE ---
pt came back from GI Lab Heparin drip resumed.
[2024-09-28 17:21] LABS: Glucose Point of Care 145 mg/dL (70-110)
[2024-09-28] MEDS: atorvastatin 40 mg Tablet 80 MG PO (17:39)
[2024-09-28] MEDS: clopidogrel 75 mg Tablet PO (17:40)
[2024-09-28] MEDS: insulin lispro 100 unit/1 mL SUBCUT ×2 (17:40→21:24)
[2024-09-28] MEDS: aspirin 81 mg EC Tablet PO (17:40)
[2024-09-28] MEDS: carvedilol 6.25 mg Tablet PO (17:40)
[2024-09-28] MEDS: nystatin powder 15 gm Btl 1 APPLIC TOPICAL (18:38)
[2024-09-28 20:46] LABS: Partial Thromboplastin Time 58.5 SECONDS (23.9-36.7)
[2024-09-28 21:02] LABS: Glucose Point of Care 198 mg/dL (70-110)
[2024-09-29] VITALS (60 sets, daily range): BP systolic 95–140; BP diastolic 50–67; PULSE 59–82; RESP 13–30; TEMP 36.4–36.7; O2SAT 95–100
[2024-09-29] MEDS: heparin drip 25,000 UNIT/500 ML PREMIX 35 UNIT IV (00:54)
[2024-09-29 04:20] LABS: Basophils % 0.5 %; Eosinophils # 0.1 10^3/uL (0.0-0.8); Eosinophils % 0.8 %; Hematocrit 29.1 % (36-47); Lymphocytes # 1.6 10^3/uL (0.8-4.8); Lymphocytes % 18.5 %; Mean Corpuscular HGB Conc 29.6 g/dL (30-55); Mean Corpuscular Hemoglobin 21.8 pg (27-33); Mean Corpuscular Volume 73.9 fl (85-98); Mean Platelet Volume 9.5 fL (7.4-10.4); Monocytes # 0.8 10^3/uL (0.2-0.9); Monocytes % 8.9 %; Neutrophils # 6.22 10^3/uL (1.8-7.7); Neutrophils % 70.7 %; Nucleated Red Blood Cells % 0 %; Platelet Count 161 10^3/cmm (157-399); Red Blood Count 3.94 10^6/uL (3.85-5.65); Red Cell Distribution Width 17.9 % (12.1-15.1); White Blood Count 8.79 10^3/uL (3.29-11.43)
[2024-09-29 04:30] LABS: Partial Thromboplastin Time 69.9 SECONDS (23.9-36.7)
[2024-09-29 04:39] LABS: Albumin Level 3.7 g/dL (3.5-5.2); Alkaline Phosphatase 90 U/L (35-105); Chloride 102 mmol/L (98-107); Sodium 134 mmol/L (136-145)
[2024-09-29 05:01] LABS: Alanine Aminotransferase 13 U/L (0-33); Aspartate Amino Transferase 18 U/L (0-32); Blood Urea Nitrogen 31 mg/dL (8-23); Calcium 8.5 mg/dL (8.5-10.5); Carbon Dioxide 20 mmol/L (22-29); Globulin 3.7 g/dL (1.3-4.6); Glomerular Filtration Rate 45.7 mL/min (90-130); Glucose 164 mg/dL (65-115); Osmolality Calculated 288 mOsm/kg (285-295); Total Bilirubin 0.5 mg/dL (0.15-1.2); Total Protein 7.4 g/dL (6.6-8.7)
[2024-09-29 06:14] LABS: Glucose Point of Care 162 mg/dL (70-110)
[2024-09-29] MEDS: pantoprazole 40 mg SDV IVP ×2 (08:27→18:42)
[2024-09-29] MEDS: carvedilol 6.25 mg Tablet PO ×2 (08:27→18:42)
[2024-09-29] MEDS: losartan 50 mg Tablet 100 MG PO (08:27)
[2024-09-29] MEDS: atorvastatin 40 mg Tablet 80 MG PO (08:28)
[2024-09-29] MEDS: isosorbide mononitrate ER 30 mg Tablet PO (08:28)
[2024-09-29] MEDS: clopidogrel 75 mg Tablet PO (08:28)
[2024-09-29] MEDS: diphenhydrAMINE 50 mg Capsule PO (08:29)
[2024-09-29] MEDS: nystatin powder 15 gm Btl 1 APPLIC TOPICAL ×2 (08:30→18:42)
[2024-09-29] MEDS: aspirin 325 mg Tablet PO (08:30)
[2024-09-29] MEDS: sodium chloride 0.9% 1,000 ML 75 ML IV (08:45)
--- NOTE | 2024-09-29 08:57 | P.PN_ITS ---
Subjective 2 Subjective: 59-year-old female with a past medical h istory of hypertension, type 2 diabetes mellitus, gout, anemia, and venous insufficiency of both lower extremities who presented with chest pain. Patient described the pain as a burning sensation over her left chest that started on Saturday and was associated with nausea and left arm numbness. She takes losartan and spironolactone for hypertension, allopurinol for gout, and Lantus 30 units in the morning for diabetes. She sees Dr. Seth for her medical care. Patient has had a prior colonoscopy around age 48, which was normal. She is likely due for a repeat screening. Patient also reports a remote history of anemia over 20 years ago related to benign fibroid tumors. Patient noted shortness of breath since the onset of chest pain. On admission (09/26/2024), Patient was found to have elevated troponins (33 initially, increasing to 58 after 2 hours and 151 after 6 hours), consistent with a Non-ST Elevation Myocardial Infarction. Initial laboratory findings also revealed a potassium of 5.6 and hemoglobin of 9.0, which subsequently decreased to 7.6, then increased to 8.7 after 1 unit of packed red blood cells was transfused. Patient was also noted to have leukocytosis. A urinalysis showed blood in Patient's urine, and she reported a history of hematuria related to recurrent urinary infections. Patient was on Ozempic for close to two years, achieving a 100-pound weight loss but discontinued it on 06/24/2024. During her hospitalization, Patient receive aspirin, plavix and was started on heparin drip, and 1 unit of packed red blood cells for acute blood loss anemia. She remained hemodynamically stable. The initial plan for cardiac catheterization was deferred due to acute anemia requiring transfusion. Patient was started on high-intensity statin therapy with atorvastatin 80 mg daily, carvedilol 6.25 mg twice daily for blood pressure control, and Imdur [address] scan of the chest, abdomen, and pelvis revealed multiple incidental findings, including bilateral pulmonary nodules (largest measuring 8.9 mm in the right lower lobe), a 12.7 mm left thyroid nodule, cardiomegaly, splenomegaly (15 cm), nodularity of the liver possibly suggesting cirrhosis, multiple bilateral breast nodules, and bladder wall thickening suggestive of cystitis. An echocardiogram showed an ejection fraction of 65% with grade 1 diastolic dysfunction and normal wall motion. Patient's hemocult was positive. Patient denies any history of smoking or malignancy. Patient was taken for EGD and colonscopy on which did not show any evidence of bleeding. Hemaglobin remained stable. Plan to proceed with cardiac cath Subjective 09/28/2024 Did not have any bleeding episodes overnight. Also denied CP or dyspnea. 09/29/2024 No new clinical events overnight. Patient denied chest pain. No dyspnea. Mild b/l le edema. Was awaiting cardiac cath. Medications: Reviewed: Yes Vitals/I&O/Wt Last Vital Signs Temp 97.5 F L 09/29/24 07:28 Pulse 67 09/29/24 08:15 Resp 17 09/29/24 08:15 BP 140/67 09/29/24 08:27 Pulse Ox 99 09/29/24 08:15 O2 Del Method Room Air 09/29/24 08:15 09/28/24 09/29/24 09/29/24 22:59 06:59 14:59 Intake Total 412.167 / 754.667 280.583 / 1035.250 Balance 412.167 / 754.667 280.583 / 1035.250 Physical Exam 2 Narrative: GENERAL: The patient is alert and oriented times three. Not in any acute distress. Obese HEENT: Grossly unremarkable NECK: Trachea appears to be central. No masses noted. No JVD or thyromegaly appreciated. RESPIRATORY: Chest is symmetrical. No intercostals muscle retraction or any accessory muscle activation. There is no chest wall tenderness. Breath sounds are heard bilaterally. No rales or rhonchi heard. No evidence of any consolidation. BREASTS: Deferred. HEART: The heart sounds are normal. No S3 or S4. No significant murmurs. No pericardial rub ABDOMEN: No vessel pulsations or distention. No tenderness. No organomegaly appreciated. Bowel sounds are normally heard. : Deferred. RECTAL: Deferred. Data 09/29/24 03:35 09/29/24 03:35 Micro: Microbiology 09/27/24 00:22 Urine Culture - Preliminary Urine,Clean Catch A&P Assessment and plan (1) Hypertension: Qualifiers: Hypertension type: primary hypertension Qualified Code(s): I10 - Essential (primary) hypertension (2) Controlled type 2 diabetes mellitus: Qualifiers: Diabetes mellitus ferry terminal agent insulin use: with ferry terminal agent use Diabetes mellitus complication status: without complication Qualified Code(s): E11.9 - Type 2 diabetes mellitus without complications; Z79.4 - exterminator termite (current) use of insulin (3) Non-STEMI (non-ST elevated myocardial infarction): (4) Anemia: Qualifiers: Anemia type: other cause Other causes of anemia: other cause, not classified Qualified Code(s): D64.89 - Other specified anemias Plan Non-ST Elevation Myocardial Infarction - 59-year-old female with multiple cardiovascular risk factors presenting with chest pain and elevated troponins consistent with NSTEMI. Initial plan for cardiac catheterization was deferred due to acute anemia requiring transfusion. - Echo stable with out regional wall motion abnormality, pE Plan: 1. Continue aspirin, Plavix, statin, coreg, imdur and heparin drip, 2. Plan to proceed with cardiac cath today Acute Blood Loss Anemia on chronic - Hemoglobin decreased from 9.0 to 7.6, requiring transfusion of 1 unit of packed red blood cells. Followign this remained stable. Etiology unclear, though patient reports history of anemia related to fibroid tumors over 20 years ago. - Hemocolt was positive - Total iron 34, TIBC 316, %saturation 10.7, Ferritin 22. Normal Bili - S/p EGD/Colonoscopy - no evidence of bleeding - Unable to perform small bowel capsule enteroscopy here - Possibly related to malignacy vs liver cirrhosis- Will arrange for outpatient oncology eval Plan: 1. Hemoglobin and hematocrit monitoring. Urinary tract infection wtih hematuria - UA noted postive leukocyte esterase > 100 WBC - Prilimary culture has not shown any growth Plan: 1. Continue on Rocephin 1 g daily for now until final culture Hypertension - Noted history of hypertension, currently on coreg, losartan and spironolactone therapy. Plan: 1. Continue current anti-hypertensive regimen. Type 2 Diabetes Mellitus - History of type 2 diabetes mellitus, currently on Lantus 30 units in the morning at home. Patient was previously on Ozempic and weight loss of 100 lbs, but discontinued on 06/24/2024. - Glucose stable - A1c elevated - Glucose has been < 200 since admission. - Only on sliding scale currently Plan: 1.Continue current regimen Venous Insufficiency of Bilateral Lower Extremities - Noted history of venous insufficiency affecting both lower extremities. Plan: 1. Encourage use of compression stockings. Incidental Findings on CT Chest/Abdomen/Pelvis - Multiple bilateral pulmonary nodules, largest measuring 8.9 mm in the right lower lobe. - 12.7 mm left thyroid nodule. - Cardiomegaly and splenomegaly. - Nodularity of the liver, possibly suggesting cirrhosis. - Multiple bilateral breast nodules. - Bladder wall thickening suggestive of cystitis. Plan: 1. Oncology consultation outpatient for further evaluation of pulmonary and breast nodules, consider PET scan. 2. Thyroid ultrasound and TSH to assess for hyperthyroidism and evaluate thyroid nodule. 3. Assess liver function tests and consider hepatology consultation outpatient for evaluation of liver nodularity and splenomegaly.. PDMP PDMP Reviewed: Not Reviewed Attestations 2 Medical Necessity Statement*: CTA today , FOBT +, surgery consult , blood transfusion Coding Level of Care Code Acute Code for Chg Fwd Diagnoses Primary hypertension I10 Hypertension type: primary hypertension Controlled type 2 diabetes mellitus without complication, with long-term current use of insulin E11.9; Z79.4 Diabetes mellitus halfway insulin use: with ferry terminal agent use Diabetes mellitus complication status: without complication Non-STEMI (non-ST elevated myocardial infarction) I21.4 Anemia due to other cause, not classified D64.89 Anemia type: other cause Other causes of anemia: other cause, not classified
--- NOTE | 2024-09-29 08:59 | P.PN_ITS ---
Subjective 2 Medications: Medication Review Details: Current Medications Acetaminophen (Acetaminophen 500 Mg Tablet) 500 mg PO Q4H PRN PRN Reason: fever Last Admin: 09/27/24 00:19 Dose: 500 mg Albuterol/Ipratropium (Ipratropium-Albuterol 3 Ml Neb) 3 ml INHALATION Q6H PRN PRN Reason: SHORTNESS OF BREATH Aspirin (Aspirin 81 Mg Ec Tablet) 81 mg PO DAILY HANG Last Admin: 09/29/24 08:30 Dose: Not Given Atorvastatin Calcium (Atorvastatin 40 Mg Tablet) 80 mg PO DAILY HANG Last Admin: 09/29/24 08:28 Dose: 80 mg Carvedilol (Carvedilol 6.25 Mg Tablet) 6.25 mg PO BID HANG Last Admin: 09/29/24 08:27 Dose: 6.25 mg Ceftriaxone Sodium (Ceftriaxone 1,000 Mg Sdv) 1,000 mg IVP Q24H HANG; Protocol Last Admin: 09/28/24 13:32 Dose: 1,000 mg Clopidogrel Bisulfate (Clopidogrel 75 Mg Tablet) 75 mg PO DAILY [facility] Last Admin: 09/29/24 08:28 Dose: 75 mg Glucagon (Glucagon 1 Mg/Ml Kit 1 Ml) 1 mg IM ONCE PRN; Protocol PRN Reason: Adult Acute Hypoglycemia Nursing Prot. Heparin Sodium (Porcine) (Heparin 5,000 Unit/Ml Inj 1 Ml) 0 unit IVP PRN PRN; Protocol PRN Reason: Heparin Weight Based Protocol -Subsequent Bolus Hydralazine HCl (Hydralazine 20 Mg/Ml Inj 1 Ml) 10 mg IVP Q4H PRN PRN Reason: bp>180/100 Dextrose (D5w) 500 mls @ 0 mls/hr IV ONCE PRN; Protocol PRN Reason: Adult Acute Hypoglycemia Prot Dextrose (D10w) 125 mls @ 750 mls/hr IV PRN PRN; Protocol PRN Reason: Adult Acute Hypoglycemia Nursing Protocol Dextrose (D10w) 250 mls @ 1,000 mls/hr IV PRN PRN; Protocol PRN Reason: Adult Acute Hypoglycemia Nursing Protocol Heparin Sodium/Sodium Chloride (Heparin Drip) 25,000 unit in 500 mls @ 0 mls/hr IV CONT HANG; Protocol Last Titration: 09/29/24 04:31 Dose: 13.93 unit/kg/hr, 35 mls/hr Sodium Chloride (Sodium Chloride 0.9%) 1,000 mls @ 75 mls/hr IV .[id number] ONE Stop: 09/29/24 20:49 Last Admin: 09/29/24 08:45 Dose: 75 mls/hr Insulin Human Lispro (Insulin Lispro 100 Unit/1 Ml) 0 unit SUBCUT WM&BEDTIME [facility]; Protocol Last Admin: 09/29/24 08:31 Dose: Not Given Isosorbide Mononitrate (Isosorbide Mononitrate Er 30 Mg Tablet) 30 mg PO DAILY [facility] Last Admin: 09/29/24 08:28 Dose: 30 mg Losartan Potassium (Losartan 50 Mg Tablet) 100 mg PO DAILY [facility] Last Admin: 09/29/24 08:27 Dose: 100 mg Morphine Sulfate (Morphine 4 Mg/Ml Sdv 1 Ml) 2 mg IVP Q4H PRN PRN Reason: SEVERE PAIN Nystatin (Nystatin Powder 15 Gm Btl) 1 applic TOPICAL BID [facility] Last Admin: 09/29/24 08:30 Dose: 1 applic Ondansetron HCl (Ondansetron 2 Mg/Ml Sdv 2 Ml) 4 mg IVP Q6H PRN PRN Reason: NAUSEA AND VOMITING Pantoprazole Sodium (Pantoprazole 40 Mg Sdv) 40 mg IVP BID [facility] Last Admin: 09/29/24 08:27 Dose: 40 mg Senna/Docusate Sodium (Sennosides-Docusate Tablet) 1 tab PO DAILY [facility] Last Admin: 09/29/24 08:31 Dose: Not Given Vitals/I&O/Wt Last Vital Signs Temp 97.5 F L 09/29/24 07:28 Pulse 67 09/29/24 08:15 Resp 17 09/29/24 08:15 BP 140/67 09/29/24 08:27 Pulse Ox 99 09/29/24 08:15 O2 Del Method Room Air 09/29/24 08:15 09/28/24 09/29/24 09/29/24 22:59 06:59 14:59 Intake Total 412.167 / 754.667 280.583 / 1035.250 Balance 412.167 / 754.667 280.583 / 1035.250 Data 09/29/24 03:35 09/29/24 03:35 Other Labs: Laboratory Last Values WBC 8.79 10^3/uL (3.29-11.43) 09/29/24 03:35 RBC 3.94 10^6/uL (3.85-5.65) 09/29/24 03:35 Hgb 8.60 g/dL (11.27-16.99) L 09/29/24 03:35 Hct 29.1 % (36-47) L 09/29/24 03:35 MCV 73.9 fl (85-98) L 09/29/24 03:35 MCH 21.8 pg (27-33) L 09/29/24 03:35 MCHC 29.6 g/dL (30-55) L 09/29/24 03:35 RDW 17.9 % (12.1-15.1) H 09/29/24 03:35 Plt Count 161 10^3/cmm (157-399) 09/29/24 03:35 MPV 9.5 fL (7.4-10.4) 09/29/24 03:35 Neut % (Auto) 70.7 % 09/29/24 03:35 Lymph % (Auto) 18.5 % 09/29/24 03:35 Hancock % (Auto) 8.9 % 09/29/24 03:35 Eos % (Auto) 0.8 % 09/29/24 03:35 Baso % (Auto) 0.5 % 09/29/24 03:35 Neut # (Auto) 6.22 10^3/uL (1.8-7.7) 09/29/24 03:35 Lymph # (Auto) 1.6 10^3/uL (0.8-4.8) 09/29/24 03:35 Hancock # (Auto) 0.8 10^3/uL (0.2-0.9) 09/29/24 03:35 Eos # (Auto) 0.1 10^3/uL (0.0-0.8) 09/29/24 03:35 Baso # (Auto) 0.0 10^3/uL (0.0-0.1) 09/29/24 03:35 Nucleated RBC % (auto) 0 % 09/29/24 03:35 Nucleated RBCs # 0.0 /100WBC 09/29/24 03:35 APTT 69.9 SECONDS (23.9-36.7) H 09/29/24 03:35 D-Dimer 0.60 ug/mLFEU (0-0.59) H 09/25/24 19:38 Sodium 134 mmol/L (136-145) L 09/29/24 03:35 Potassium 4.0 mmol/L (3.5-5.1) 09/29/24 03:35 Chloride 102 mmol/L (98-107) 09/29/24 03:35 Carbon Dioxide 20 mmol/L (22-29) L 09/29/24 03:35 Anion Gap 16.0 (5-19) 09/29/24 03:35 BUN 31 mg/dL (8-23) H 09/29/24 03:35 Creatinine 1.2 mg/dL (0.5-0.9) H 09/29/24 03:35 GFR Calculation 45.7 mL/min (90-130) L 09/29/24 03:35 Glucose 164 mg/dL (65-115) H 09/29/24 03:35 POC Glucose 162 mg/dL (70-110) H 09/29/24 06:03 Estimat Average Glucose 171 09/25/24 19:38 Hemoglobin A1c 7.6 % (4.0-6.0) H 09/25/24 19:38 Calculated Osmolality 288 mOsm/kg (285-295) 09/29/24 03:35 Calcium 8.5 mg/dL (8.5-10.5) 09/29/24 03:35 Magnesium 2.0 mg/dL (1.7-2.3) 09/26/24 04:54 Iron 34 ug/dL (37-145) L 09/26/24 04:54 TIBC 316 mcg/dl 09/26/24 04:54 % Saturation 10.7 % (20-50) L 09/26/24 04:54 Unsat Iron Binding 282 ug/dL (112-347) 09/26/24 04:54 Ferritin 22 ng/mL (15-150) 09/26/24 04:54 Total Bilirubin 0.5 mg/dL (0.15-1.2) 09/29/24 03:35 Direct Bilirubin 0.20 mg/dL (0.00-0.30) 09/26/24 04:54 AST 18 U/L (0-32) 09/29/24 03:35 ALT 13 U/L (0-33) 09/29/24 03:35 Alkaline Phosphatase 90 U/L (35-105) 09/29/24 03:35 Troponin T Baseline 33 ng/L (0-10) H 09/25/24 19:38 Troponin T 120 Minute 58.26 ng/L (0-10) H 09/25/24 20:57 Delta Troponin T 25.26 ABS# (0-10) H* 09/25/24 20:57 Troponin T Hi Sens 6Hr 151.8 ng/L (0-10) H 09/26/24 01:06 Troponin T Hi Sens 6Hr Delta 118.8 ng/L (0-12) H* 09/26/24 01:06 C-Reactive Protein 19.6 mg/L (0.0-4.9) H 09/26/24 04:54 Total Protein 7.4 g/dL (6.6-8.7) 09/29/24 03:35 Albumin 3.7 g/dL (3.5-5.2) 09/29/24 03:35 Globulin 3.7 g/dL (1.3-4.6) 09/29/24 03:35 Vitamin B12 Cancelled 09/26/24 04:54 Folate 12.1 ng/mL (4.8-37.3) 09/26/24 04:54 Urine Color Red (Yellow) A 09/27/24 00:22 Urine Appearance Turbid (CLEAR) A 09/27/24 00:22 Urine pH 5.0 (5-7) 09/27/24 00:22 Ur Specific Mcintire 1.013 (1.005-1.030) 09/27/24 00:22 Urine Protein 2+ (Negative) A 09/27/24 00:22 Urine Glucose (UA) Negative (Normal) 09/27/24 00:22 Urine Ketones Negative (Negative) 09/27/24 00:22 Urine Blood 3+ (Negative) A 09/27/24 00:22 Urine Nitrate Negative (Negative) 09/27/24 00:22 Urine Bilirubin 1+ (Negative) H 09/27/24 00:22 Urine Urobilinogen 0.2 mg/dL (Negative) 09/27/24 00:22 Ur Leukocyte Esterase 2+ (Negative) A 09/27/24 00:22 Urine RBC >100 /hpf (0-2) H 09/27/24 00:22 Urine WBC >100 /hpf (0-5) H 09/27/24 00:22 Ur Squamous Epith Cells 0-5 /hpf (0-5) 09/27/24 00:22 Amorphous Sediment Not Reportable 09/27/24 00:22 Urine Bacteria Trace /hpf (NONE) 09/27/24 00:22 Hyaline Casts 1.13 /lpf 09/27/24 00:22 Blood Type O Positive 09/27/24 13:11 Rho(D) Type Rh positive 09/27/24 13:11 Antibody Screen Negative 09/27/24 13:11 Crossmatch See Detail 09/27/24 13:11 Micro: Microbiology 09/27/24 00:22 Urine Culture - Preliminary Urine,Clean Catch A&P PDMP PDMP Reviewed: Not Reviewed Attestations 2 Medical Necessity Statement*: Patient requires continued hospital stay for close monitoring and further management Coding Level of Care Code Acute Code for Chg Wendy
--- NOTE | 2024-09-29 09:08 | US_ITS ---
WS: [id number] ULTRASOUND THYROID TECHNIQUE: Ultrasound of the thyroid. CLINICAL INFORMATION: thyroid nodule FINDINGS: Thyroid: Somewhat heterogeneous LEFT greater than RIGHT thyroid echotexture. Recommend correlation with thyroid function studies. Small cystic lesion LEFT mid thyroid measuring 9 x 9 x 7 mm. Spongiform lesion in LEFT mid thyroid measuring 8 x 8 x 7 mm Right thyroid lobe: 4.7 cm x 2.0 cm x 2.3 cm Left thyroid lobe: 4.3 cm x 2.6 cm x 2.7 cm. Isthmus: 0.6 mm. Cervical lymphadenopathy: None. US/US thyroid [id number] IMPRESSION: Small cystic lesion LEFT mid thyroid measuring 9 x 9 mm TIRADS Category 1: Benign (total points = 0) No FNA Spongiform lesion in LEFT mid thyroid measuring 8 x 8 x 7 mm TIRADS Category 1: Benign (spongiform nodule) (total points = 0) No FNA
[2024-09-29 09:45] LABS: Thyroid Stimulating Hormone 1.21 uIU/mL (0.27-4.20)
--- NOTE | 2024-09-29 10:35 | XACV_ITS ---
Exam Room: [facility] Ht: 170 cm Wt: 125 kg BSA: 2.50 m2 Gender: Female : 1965 Any Known Allergies: No known allergies Exam Priority: Routine Procedure(s): Procedure Description: Diagnostic procedure Procedure Description: Left Heart Catheterization Procedure Description: Coronary Angiography Kwaku LORENZO; Diagnostic Cath Status: Elective Diagnostic Findings * Left main is a medium caliber vessel with no significant stenotic lesions. * The left and descending artery is a medium caliber vessel which appears to taper off to his LV apex. It gives of a high diagonal branch which appears to be totally occluded proximally. It appears to have a spiral dissection proximally before the total occlusion. No significant lesions were noted in the left anterior descending artery itself. * There is an intermedius artery of medium caliber with no significant stenotic lesions. * The left circumflex artery is a medium to large caliber vessel which gives of multiple small obtuse marginal vessels. The first obtuse marginal artery was found to have mild diffuse narrowing proximally including the ostium. No significant stenotic lesions were noted. * The right coronary artery is a car dominant medium caliber vessel with no significant stenotic lesions. Conclusions 1. 59-year-old white female with multiple ascites for coronary disease patient with features of exn-AP-drgemximp myocardial infarction. She also was found to be anemic with a hemoglobin of 8.6. She was found to have multiple lung lesions. She had a few episodes of chest pain since hospital admission. However for the last almost 48 hours, she has been remaining pain-free. In view of the multiple risk factors and the clinical presentation, in order to further evaluate the coronary status, a cardiac catheterization was recommended. She was found to have normal LV systolic function by echocardiogram. She underwent left heart catheterization with left and right coronary angiogram today. The findings are as follows. 2. Normal left main. Left and descending artery was found to have no significant lesions. The first diagonal branch was found to be totally occluded possibly after a spiral dissection in the proximal segment. No severe lesions were noted in the circumflex or the right coronary artery. The right coronary artery was found to be codominant. LVEDP of 31 mmHg. 3. I reviewed and discussed the cardiac arrhythmia findings with the Dr. Coats. The coronary lesion was thought to be most likely related to SCAD. Considering the patient's symptom-free state, normal LV systolic function by echocardiogram, new pulmonary lesions, anemia, etc. it was thought to be appropriate to continue the medical treatment. This was discussed with the patient and her family which they understood well. The patient was transferred to the medical for in stable condition. Diagnostic RX Recommendation: medical therapy and/or counseling LV EDP: 31 mmHg Left Ventriculography Findings: * LV gram was not performed because of the renal insufficiency and concerned about contrast-induced nephropathy. The LVEDP was 31 mmHg. Pressures Phase:Rest AO : 100 / 60 ( 76 ) @ 6:14:00 PM 109 / 61 ( 81 ) @ 6:22:00 PM 108 / 51 ( 77 ) @ 6:22:00 PM 100 / 69 ( 84 ) @ 6:24:00 PM LV : 125 / 9 / 31 @ 6:21:00 PM 124 / 7 / 30 @ 6:22:00 PM Valves Phase:DefaultPhase AV : 15.0 @ 5:40:54 PM AV Mean Gradient: 12.0 @ 5:40:54 PM Clinical Evaluation EBL: 5mL-10mL Procedural Details Procedure Consent Obtained. Pre-Procedure Time Out. Identified patient by full name and date of as verbalized by the patient/guarantor. Does the consent match the physician's order: Yes. Accurate & Complete Informed Consent: Yes. Inpatient/Outpatient History & Physical on Chart: Yes. If H&P is completed, is and addenduem needed: No; If yes, is the addendum complete: N/A. Visualize and Verify Site with Patient/Guarantor: N/A. Relevant Radiology Images available: Yes. The risks, benefits, and alternatives of sedation and/or procedure were discussed by physician. The patient agrees to continue. Procedure started. [facility] Clinical Fraility Score: 4: Vulnerable. Obiee Architect Indications: ACS > 24 hours/NSTEMI. Chest Pain Symptom Assessment: Typical Angina Symptoms. Cardiovascular Instability: No. Correct patient, site and procedure confirmed by cath team. Current diagnosis: NSTEMI. PERRLA. Strong, equal hand log rafter bilaterally. Lungs clear x 5 lobes. IV Site on Arrival: 20 gauge in the right anticubital. IV Site on Arrival: 20 gauge in the left hand. IV Fluids: 0.9% NaCl at KVO. 0 mL infused prior to crime lab technician. Pre Procedural Pulses: bilateral dorsalis pedis was Doppled. Pre Procedural Pulses: left posterior tibial was Doppled. Pre Procedural Pulses: bilateral radial was 2+. Oxygen started at 2liters/min via nasal canula. right groin was prepped with chloroprep then draped in the usual sterile fashion. right radial was prepped with chloroprep then draped in the usual sterile fashion. Physician notified. Baseline sample Acquired. HR: 66 BPM. Patient's family in the crime lab technician waiting room. Dr. Ames will update a the completion of the procedure. Equipment: 6F - Radial. Cardiac Cath Pack. ACIST Manifold Kit Model BT 2000. Heparinized Saline (2 units/mL), 1000 mL bag. Physician arrived. Physician scrubbed in. Immediate Pre-Procedure Time Out. Correct Patient: Yes; Correct Procedure: Yes; Correct Site: Yes; Correct Patient Position: Yes; Correct Supplies: Yes; Dried Flammable Prep: Yes; Blood Products Available: N/A;. Lidocaine 1% infiltrated to the right radial. Arterial access obtained. A 5 korean Bean catheter in over the exchange J wire. ACT drawn. Results 148 seconds. Therapeutic limits - pre-heparin administration 90-150 seconds and monitoring heparin during a vascular procedure >250 seconds. Multiple views taken of left coronary artery. Catheter redirected to the RCA. Cineography of the RCA performed. Catheter redirected to the LV. Dr. Coats called to view cineography. EDP Sample taken: LV 125/9,31; HR: 76 BPM; SpO2: 95%. Pullback taken: LV 124/7,30; AO 109/61(81); Mean: 12mmHg, Peak to Peak: 15mmHg, SEP: 21sec/min; HR: 74 BPM; SpO2: 98%. Catheter removed over the exchange J wire. A 5 korean JR4 catheter in over the exchange J wire. Multiple views taken of right coronary artery. Catheter removed over the exchange J wire. Dr. Ames scrubbed out. Dr. Coats here to discuss cineography. A TR Band was successful obtaining hemostatsis at the Right Radial artery insertion site. Post Procedure: Pulses reassessed and unchanged. PERRLA. Strong, equal hand log rafter bilaterally. No VTE prophylaxis required. Medication's Wasted: Lidocaine 1% = 18 mL. Medication's Wasted: Nitro = 50 mg. Medication's Wasted: Heparin = 1000 units. Medication's Wasted: Other = Versed 1 mg. Medication's Wasted: Other = Fentanyl 50 mcg. Total IV fluids: 30 mL. Post-op diagnosis: non-obstuctive CAD. Complications: none. Estimated blood loss: 5mL-10mL. Responsiveness - Normal response to verbal stimuli; alert and oriented, PERRLA. Airway - Unaffected, no intervention required; spontaneous ventilation. Circulation: W/N/L, pulses unchanged. Nausea/Vomiting: Yes. Procedure completed. Patient transferred by bed to 1st floor. Vital chart was stopped. Access Site Site: Right Radial artery Sheath Size: 6 Fr Hemostasis Method: TR Band Hemostasis Success: Successful Procedure Medications Start: 5:04 PM Stop: 5:04 PM Medication: Versed Amount: 1 mg Route: I.V. Start: 5:04 PM Stop: 5:04 PM Medication: Fentanyl Amount: 50 mcg Route: I.V. Start: 5:10 PM Stop: 5:10 PM Medication: Verapamil Amount: 5 mg Route: I.A. Start: 5:13 PM Stop: 5:13 PM Medication: Versed Amount: 1 mg Route: I.V. Start: 5:18 PM Stop: 5:18 PM Medication: Heparin Amount: 5000 units Route: I.V. I, the attending physician, have reviewed and verified all procedure medications. Yes, all medications given per verbal order History/Risk Factors Hypertension: Yes Dyslipidemia: No Peripheral Arterial Disease (PAD): No Myocardial Infarction (OR): No Obesity: Yes Renal Disease: No Tobacco Use: Never Prior Interventions PCI: No CABG: Yes Valve Surgery: No Report Signatures Finalized by Dr Santi Ames MD [facility] on 09/30/2024 12:33 AM
[2024-09-29 12:10] LABS: Glucose Point of Care 221 mg/dL (70-110)
[2024-09-29] MEDS: cefTRIAXone 1,000 mg SDV 1000 MG IVP (12:38)
[2024-09-29] MEDS: insulin lispro 100 unit/1 mL SUBCUT ×2 (12:39→20:58)
--- NOTE | 2024-09-29 13:16 | PC.NURSE ---
bp on low side (95/51-map 65).pt denies dizziness.had babita goldstein,coreg this a.m...dr milner notified.he ordered 250 cc ns bolus..which was started off the 1 liter ns that was hanging for pre-cath.
--- NOTE | 2024-09-29 13:18 | PC.NURSE ---
urine noted to be pink in toilet.pt states that this has been occuring off and on since she took ozempic.states dr huitron (pcp) has been aware of this as well.
--- NOTE | 2024-09-29 13:26 | P.PN_ITS ---
Subjective 2 Subjective: The patient is feeling okay. Has not had any recurrence of chest pain. The hemoglobin is remaining stable. No new symptoms. Had EGD and colonoscopy yesterday. Was found to have no evidence of any active bleed. Medications: Medication Review Details: Current Medications Acetaminophen (Acetaminophen 500 Mg Tablet) 500 mg PO Q4H PRN PRN Reason: fever Last Admin: 09/27/24 00:19 Dose: 500 mg Albuterol/Ipratropium (Ipratropium-Albuterol 3 Ml Neb) 3 ml INHALATION Q6H PRN PRN Reason: SHORTNESS OF BREATH Aspirin (Aspirin 81 Mg Ec Tablet) 81 mg PO DAILY [facility] Last Admin: 09/29/24 08:30 Dose: Not Given Atorvastatin Calcium (Atorvastatin 40 Mg Tablet) 80 mg PO DAILY [facility] Last Admin: 09/29/24 08:28 Dose: 80 mg Carvedilol (Carvedilol 6.25 Mg Tablet) 6.25 mg PO BID [facility] Last Admin: 09/29/24 08:27 Dose: 6.25 mg Ceftriaxone Sodium (Ceftriaxone 1,000 Mg Sdv) 1,000 mg IVP Q24H [facility]; Protocol Last Admin: 09/29/24 12:38 Dose: 1,000 mg Clopidogrel Bisulfate (Clopidogrel 75 Mg Tablet) 75 mg PO DAILY [facility] Last Admin: 09/29/24 08:28 Dose: 75 mg Glucagon (Glucagon 1 Mg/Ml Kit 1 Ml) 1 mg IM ONCE PRN; Protocol PRN Reason: Adult Acute Hypoglycemia Nursing Prot. Heparin Sodium (Porcine) (Heparin 5,000 Unit/Ml Inj 1 Ml) 0 unit IVP PRN PRN; Protocol PRN Reason: Heparin Weight Based Protocol -Subsequent Bolus Hydralazine HCl (Hydralazine 20 Mg/Ml Inj 1 Ml) 10 mg IVP Q4H PRN PRN Reason: bp>180/100 Dextrose (D5w) 500 mls @ 0 mls/hr IV ONCE PRN; Protocol PRN Reason: Adult Acute Hypoglycemia Prot Dextrose (D10w) 125 mls @ 750 mls/hr IV PRN PRN; Protocol PRN Reason: Adult Acute Hypoglycemia Nursing Protocol Dextrose (D10w) 250 mls @ 1,000 mls/hr IV PRN PRN; Protocol PRN Reason: Adult Acute Hypoglycemia Nursing Protocol Heparin Sodium/Sodium Chloride (Heparin Drip) 25,000 unit in 500 mls @ 0 mls/hr IV CONT [facility]; Protocol Last Titration: 09/29/24 04:31 Dose: 13.93 unit/kg/hr, 35 mls/hr Sodium Chloride (Sodium Chloride 0.9%) 1,000 mls @ 75 mls/hr IV .[id number] ONE Stop: 09/29/24 20:49 Last Admin: 09/29/24 08:45 Dose: 75 mls/hr Insulin Human Lispro (Insulin Lispro 100 Unit/1 Ml) 0 unit SUBCUT WM&BEDTIME [facility]; Protocol Last Admin: 09/29/24 12:39 Dose: 8 unit Isosorbide Mononitrate (Isosorbide Mononitrate Er 30 Mg Tablet) 30 mg PO DAILY [facility] Last Admin: 09/29/24 08:28 Dose: 30 mg Losartan Potassium (Losartan 50 Mg Tablet) 100 mg PO DAILY [facility] Last Admin: 09/29/24 08:27 Dose: 100 mg Morphine Sulfate (Morphine 4 Mg/Ml Sdv 1 Ml) 2 mg IVP Q4H PRN PRN Reason: SEVERE PAIN Nystatin (Nystatin Powder 15 Gm Btl) 1 applic TOPICAL BID [facility] Last Admin: 09/29/24 08:30 Dose: 1 applic Ondansetron HCl (Ondansetron 2 Mg/Ml Sdv 2 Ml) 4 mg IVP Q6H PRN PRN Reason: NAUSEA AND VOMITING Pantoprazole Sodium (Pantoprazole 40 Mg Sdv) 40 mg IVP BID [facility] Last Admin: 09/29/24 08:27 Dose: 40 mg Senna/Docusate Sodium (Sennosides-Docusate Tablet) 1 tab PO DAILY [facility] Last Admin: 09/29/24 08:31 Dose: Not Given Vitals/I&O/Wt Last Vital Signs Temp 97.6 F 09/29/24 11:23 Pulse 66 09/29/24 11:23 Resp 18 09/29/24 11:23 BP 96/50 09/29/24 11:23 Pulse Ox 98 09/29/24 11:23 O2 Del Method Room Air 09/29/24 11:23 09/28/24 09/29/24 09/29/24 22:59 06:59 14:59 Intake Total 412.167 / 754.667 280.583 / 1035.250 Balance 412.167 / 754.667 280.583 / 1035.250 Physical Exam 2 Narrative: GENERAL: The patient is alert and oriented times three. Not in any acute distress. Obese HEENT: No significant pallor, icterus or lymphadenopathy.Oral cavity: There are no mucous membrane lesions. NECK: Trachea appears to be central. No masses noted. No JVD or thyromegaly appreciated. RESPIRATORY: Chest is symmetrical. No intercostals muscle retraction or any accessory muscle activation. There is no chest wall tenderness. Breath sounds are heard bilaterally. No rales or rhonchi heard. No evidence of any consolidation. BREASTS: Deferred. HEART: The heart sounds are normal. No S3 or S4. No significant murmurs. No pericardial rub ABDOMEN: No vessel pulsations or distention. No tenderness. No organomegaly appreciated. Bowel sounds are normally heard. : Deferred. RECTAL: Deferred. LYMPHATIC: No lymphadenopathy noted in the neck. EXTREMITIES: Trace edema bilaterally with no cyanosis. MUSCULOSKELETAL: No acute joint deformities or swelling SKIN: There are no significant rashes or ecchymosis NEUROPSYCHIATRIC: The patient is alert and oriented x3. Appears to be in a good mood. No tremors or rigidity noted. Data 09/29/24 03:35 09/29/24 03:35 Other Labs: Laboratory Last Values WBC 8.79 10^3/uL (3.29-11.43) 09/29/24 03:35 RBC 3.94 10^6/uL (3.85-5.65) 09/29/24 03:35 Hgb 8.60 g/dL (11.27-16.99) L 09/29/24 03:35 Hct 29.1 % (36-47) L 09/29/24 03:35 MCV 73.9 fl (85-98) L 09/29/24 03:35 MCH 21.8 pg (27-33) L 09/29/24 03:35 MCHC 29.6 g/dL (30-55) L 09/29/24 03:35 RDW 17.9 % (12.1-15.1) H 09/29/24 03:35 Plt Count 161 10^3/cmm (157-399) 09/29/24 03:35 MPV 9.5 fL (7.4-10.4) 09/29/24 03:35 Neut % (Auto) 70.7 % 09/29/24 03:35 Lymph % (Auto) 18.5 % 09/29/24 03:35 [place] % (Auto) 8.9 % 09/29/24 03:35 Eos % (Auto) 0.8 % 09/29/24 03:35 Baso % (Auto) 0.5 % 09/29/24 03:35 Neut # (Auto) 6.22 10^3/uL (1.8-7.7) 09/29/24 03:35 Lymph # (Auto) 1.6 10^3/uL (0.8-4.8) 09/29/24 03:35 [place] # (Auto) 0.8 10^3/uL (0.2-0.9) 09/29/24 03:35 Eos # (Auto) 0.1 10^3/uL (0.0-0.8) 09/29/24 03:35 Baso # (Auto) 0.0 10^3/uL (0.0-0.1) 09/29/24 03:35 Nucleated RBC % (auto) 0 % 09/29/24 03:35 Nucleated RBCs # 0.0 /100WBC 09/29/24 03:35 APTT 69.9 SECONDS (23.9-36.7) H 09/29/24 03:35 D-Dimer 0.60 ug/mLFEU (0-0.59) H 09/25/24 19:38 Sodium 134 mmol/L (136-145) L 09/29/24 03:35 Potassium 4.0 mmol/L (3.5-5.1) 09/29/24 03:35 Chloride 102 mmol/L (98-107) 09/29/24 03:35 Carbon Dioxide 20 mmol/L (22-29) L 09/29/24 03:35 Anion Gap 16.0 (5-19) 09/29/24 03:35 BUN 31 mg/dL (8-23) H 09/29/24 03:35 Creatinine 1.2 mg/dL (0.5-0.9) H 09/29/24 03:35 GFR Calculation 45.7 mL/min (90-130) L 09/29/24 03:35 Glucose 164 mg/dL (65-115) H 09/29/24 03:35 POC Glucose 221 mg/dL (70-110) H 09/29/24 11:21 Estimat Average Glucose 171 09/25/24 19:38 Hemoglobin A1c 7.6 % (4.0-6.0) H 09/25/24 19:38 Calculated Osmolality 288 mOsm/kg (285-295) 09/29/24 03:35 Calcium 8.5 mg/dL (8.5-10.5) 09/29/24 03:35 Magnesium 2.0 mg/dL (1.7-2.3) 09/26/24 04:54 Iron 34 ug/dL (37-145) L 09/26/24 04:54 TIBC 316 mcg/dl 09/26/24 04:54 % Saturation 10.7 % (20-50) L 09/26/24 04:54 Unsat Iron Binding 282 ug/dL (112-347) 09/26/24 04:54 Ferritin 22 ng/mL (15-150) 09/26/24 04:54 Total Bilirubin 0.5 mg/dL (0.15-1.2) 09/29/24 03:35 Direct Bilirubin 0.20 mg/dL (0.00-0.30) 09/26/24 04:54 AST 18 U/L (0-32) 09/29/24 03:35 ALT 13 U/L (0-33) 09/29/24 03:35 Alkaline Phosphatase 90 U/L (35-105) 09/29/24 03:35 Troponin T Baseline 33 ng/L (0-10) H 09/25/24 19:38 Troponin T 120 Minute 58.26 ng/L (0-10) H 09/25/24 20:57 Delta Troponin T 25.26 ABS# (0-10) H* 09/25/24 20:57 Troponin T Hi Sens 6Hr 151.8 ng/L (0-10) H 09/26/24 01:06 Troponin T Hi Sens 6Hr Delta 118.8 ng/L (0-12) H* 09/26/24 01:06 C-Reactive Protein 19.6 mg/L (0.0-4.9) H 09/26/24 04:54 Total Protein 7.4 g/dL (6.6-8.7) 09/29/24 03:35 Albumin 3.7 g/dL (3.5-5.2) 09/29/24 03:35 Globulin 3.7 g/dL (1.3-4.6) 09/29/24 03:35 Vitamin B12 Cancelled 09/26/24 04:54 Folate 12.1 ng/mL (4.8-37.3) 09/26/24 04:54 TSH 1.21 uIU/mL (0.27-4.20) 09/29/24 03:35 Urine Color Red (Yellow) A 09/27/24 00:22 Urine Appearance Turbid (CLEAR) A 09/27/24 00:22 Urine pH 5.0 (5-7) 09/27/24 00:22 Ur Specific [place] 1.013 (1.005-1.030) 09/27/24 00:22 Urine Protein 2+ (Negative) A 09/27/24 00:22 Urine Glucose (UA) Negative (Normal) 09/27/24 00:22 Urine Ketones Negative (Negative) 09/27/24 00:22 Urine Blood 3+ (Negative) A 09/27/24 00:22 Urine Nitrate Negative (Negative) 09/27/24 00:22 Urine Bilirubin 1+ (Negative) H 09/27/24 00:22 Urine Urobilinogen 0.2 mg/dL (Negative) 09/27/24 00:22 Ur Leukocyte Esterase 2+ (Negative) A 09/27/24 00:22 Urine RBC >100 /hpf (0-2) H 09/27/24 00:22 Urine WBC >100 /hpf (0-5) H 09/27/24 00:22 Ur Squamous Epith Cells 0-5 /hpf (0-5) 09/27/24 00:22 Amorphous Sediment Not Reportable 09/27/24 00:22 Urine Bacteria Trace /hpf (NONE) 09/27/24 00:22 Hyaline Casts 1.13 /lpf 09/27/24 00:22 Blood Type O Positive 09/27/24 13:11 Rho(D) Type Rh positive 09/27/24 13:11 Antibody Screen Negative 09/27/24 13:11 Crossmatch See Detail 09/27/24 13:11 Micro: Microbiology 09/27/24 00:22 Urine Culture - Final Urine,Clean Catch A&P Assessment and plan (1) Non-STEMI (non-ST elevated myocardial infarction): Patient has not had any recurrence of chest pain Since yesterday. May continue on the current treatment. (2) Controlled type 2 diabetes mellitus: The blood sugar is fairly under control. This may be closely monitored. Qualifiers: Diabetes mellitus ad terminal makeup operator insulin use: with ad terminal makeup operator use Diabetes mellitus complication status: without complication Qualified Code(s): E11.9 - Type 2 diabetes mellitus without complications; Z79.4 - retirement (current) use of insulin (3) Hypertension: Patient's blood pressure was running low in the 90s. She is currently on IV fluid. Qualifiers: Hypertension type: primary hypertension Qualified Code(s): I10 - Essential (primary) hypertension (4) Anemia: The etiology is unclear. No evidence of any active bleed. Malignancy could be a contributing factor. Patient requires further workup. Since she is fairly stable, no evidence of active bleed based on the endoscopy studies. Qualifiers: Anemia type: other cause Other causes of anemia: other cause, not classified Qualified Code(s): D64.89 - Other specified anemias (5) Renal insufficiency: Etiology is not clear. Possibly from the diabetes. Patient continues to have high BUN/creatinine. Plan The other problems are GERD Obesity Mild hyperkalemia Lung lesions? I discussed with the patient about further management. In view of her NSTEMI, she requires a cardiac catheterization to further evaluate. The risk and benefits were discussed. The risk of bleeding, hematoma, vascular injury, myocardial infarction, myocardial perforation, malignant cardiac arrhythmias ,CVA, renal failure and other concomitant complications were explained in detail. In view of the abnormal kidney function, she carries a higher risk for contrast-induced nephropathy. Because of the anemia, she also has a high bleeding risk. These issues were discussed with the patient in detail which she understood well and consented to proceed. Will go ahead and plan for the procedure sometime this afternoon. Based on the angiogram findings, further recommendations will be made. Will discontinue the IV heparin at this time Discussed with Dr Guerrero-concurred with the plan PDMP PDMP Reviewed: Not Reviewed Attestations 2 Medical Necessity Statement*: Patient requires continued hospital stay for close monitoring and further management Coding Level of Care Code 26955 Diagnoses Non-STEMI (non-ST elevated myocardial infarction) I21.4 Controlled type 2 diabetes mellitus without complication, with long-term current use of insulin E11.9; Z79.4 Diabetes mellitus ad terminal makeup operator insulin use: with ad terminal makeup operator use Diabetes mellitus complication status: without complication Primary hypertension I10 Hypertension type: primary hypertension Anemia due to other cause, not classified D64.89 Anemia type: other cause Other causes of anemia: other cause, not classified Renal insufficiency N28.9
--- NOTE | 2024-09-29 14:06 | PC.NURSE ---
bp has improved since ns bolus given.dr milner called and updated to current bp...103/54..map 70
[2024-09-29 15:42] LABS: Partial Thromboplastin Time 62.7 SECONDS (23.9-36.7)
[2024-09-29 16:15] LABS: Glucose Point of Care 162 mg/dL (70-110)
--- NOTE | 2024-09-29 16:41 | W.PM.OPSUD ---
Surgery/Procedure H&P Update DATE OF PROCEDURE: September 29, 2024 DATE H&P PERFORMED: 09/27/24 H&P UPDATE INFORMATION: I have reviewed H&P completed within last 30 days, I have examined patient prior to procedure and No changes to prior documentation PREOP DIAGNOSIS: ASHD PRIMARY INDICATION FOR PROCEDURE: [id number] myocardial infarction/multiple risk factors PLANNED PROCEDURE: Left heart catheterization with left and right coronary angiogram and possible PCI PATIENT REASSESSED PRIOR TO SEDATION, WITH NO CHANGE NOTED: Yes PHYSICAL EXAM: oriented x 3 and clear to auscultation bilaterally AIRWAY EVAL/ANESTHESIA PLAN: see other exam findings, ASA III, Monitored Anesthesia, Local Anesthesia, Risks, benefits & alternatives of sedation and/or procedure discussed and Patient agrees to continue as planned
--- NOTE | 2024-09-29 16:59 | PC.NURSE ---
to cardiac clinical laboratory technologist via bed at this time
--- NOTE | 2024-09-29 19:34 | PC.NURSE ---
received from cardiac laborer [employer] at 1750.report received.pt is alert and awake and oriented x 4.denies pain at present.sr on monitor.right radial tr band is on and inflated.right hand is warm to touch and with brisk capillary refill.palpable radial pulse noted distal to tr band.no hematoma noted.pt instructed in activity restrictions s/p radial artery procedure..and instructed to notify staff for any bleeding,pain,numbness,sob...or for any concerns at all.pt junie understanding of instructions
[2024-09-29 20:43] LABS: Glucose Point of Care 213 mg/dL (70-110)
--- NOTE | 2024-09-29 23:59 | PC.NURSE ---
TR band TR band was removed at 2330, removed 2mL of air every 15-20 minutes, mild soft bruising present where the TR band's air pouch was placed on wrist, no oozing noted, no hematoma present, educated patient on the importance of not putting weight on that right wrist and not lifting more than 10 lbs with that hand, patient verbally expressed understanding. 2x2 gauze and a tegaderm placed over site. dressing is dry and intact.
[2024-09-30] VITALS (7 sets, daily range): BP systolic 96–126; BP diastolic 53–65; PULSE 57–79; RESP 15–22; TEMP 36.3–36.6; O2SAT 98–100
[2024-09-30 04:20] LABS: Basophils % 0.5 %; Eosinophils # 0.1 10^3/uL (0.0-0.8); Hematocrit 31.6 % (36-47); Lymphocytes # 1.6 10^3/uL (0.8-4.8); Lymphocytes % 19.1 %; Mean Corpuscular HGB Conc 28.5 g/dL (30-55); Mean Corpuscular Hemoglobin 21.6 pg (27-33); Mean Platelet Volume 9.8 fL (7.4-10.4); Monocytes # 0.8 10^3/uL (0.2-0.9); Monocytes % 9.5 %; Neutrophils # 5.65 10^3/uL (1.8-7.7); Neutrophils % 69.5 %; Nucleated Red Blood Cells % 0 %; Platelet Count 169 10^3/cmm (157-399); Red Blood Count 4.16 10^6/uL (3.85-5.65); Red Cell Distribution Width 18.2 % (12.1-15.1); White Blood Count 8.12 10^3/uL (3.29-11.43)
[2024-09-30 04:37] LABS: Alanine Aminotransferase 12 U/L (0-33); Albumin Level 3.8 g/dL (3.5-5.2); Alkaline Phosphatase 89 U/L (35-105); Anion Gap 14.3 (5-19); Aspartate Amino Transferase 16 U/L (0-32); Blood Urea Nitrogen 29 mg/dL (8-23); Calcium 8.6 mg/dL (8.5-10.5); Carbon Dioxide 22 mmol/L (22-29); Chloride 103 mmol/L (98-107); Globulin 3.8 g/dL (1.3-4.6); Glomerular Filtration Rate 41.6 mL/min (90-130); Glucose 129 mg/dL (65-115); Osmolality Calculated 288 mOsm/kg (285-295); Potassium 4.3 mmol/L (3.5-5.1); Sodium 135 mmol/L (136-145); Total Bilirubin 0.5 mg/dL (0.15-1.2); Total Protein 7.6 g/dL (6.6-8.7)
[2024-09-30 06:37] LABS: Glucose Point of Care 148 mg/dL (70-110)
[2024-09-30] MEDS: insulin lispro 100 unit/1 mL SUBCUT (08:26)
[2024-09-30] MEDS: pantoprazole 40 mg SDV IVP (09:37)
[2024-09-30] MEDS: aspirin 81 mg EC Tablet PO (09:38)
[2024-09-30] MEDS: sennosides-docusate Tablet 1 TAB PO (09:38)
[2024-09-30] MEDS: atorvastatin 40 mg Tablet 80 MG PO (09:38)
[2024-09-30] MEDS: nystatin powder 15 gm Btl 1 APPLIC TOPICAL (09:39)
--- NOTE | 2024-09-30 09:49 | PM.DCS ---
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 Qualified Code(s): E11.9 - Type 2 diabetes mellitus without complications; Z79.4 - [facility] (current) use of insulin (3) Hypertension: Status: Acute Qualifiers: Hypertension type: primary hypertension Qualified Code(s): I10 - Essential (primary) hypertension (4) Anemia: Status: Acute Qualifiers: Anemia type: other cause Other causes of anemia: other cause, not classified Qualified Code(s): D64.89 - Other specified anemias (5) Renal insufficiency: Status: Acute Reason for Visit Reason for Visit: CP Hospital Course Hospital Course 59-year-old female with a past medical history of hypertension, type 2 diabetes mellitus, gout, anemia, and venous insufficiency of both lower extremities who presented with chest pain. Patient described the pain as a burning sensation over her left chest that started on Saturday and was associated with nausea and left arm numbness. She takes losartan and spironolactone for hypertension, allopurinol for gout, and Lantus 30 units in the morning for diabetes. She sees Dr. Seth for her medical care. Patient has had a prior colonoscopy around age 48, which was normal. She is likely due for a repeat screening. Patient also reports a remote history of anemia over 20 years ago related to benign fibroid tumors. Patient noted shortness of breath since the onset of chest pain. On admission (09/26/2024), Patient was found to have elevated troponins (33 initially, increasing to 58 after 2 hours and 151 after 6 hours), consistent with a Non-ST Elevation Myocardial Infarction. Initial laboratory findings also revealed a potassium of 5.6 and hemoglobin of 9.0, which subsequently decreased to 7.6, then increased to 8.7 after 1 unit of packed red blood cells was transfused. Patient was also noted to have leukocytosis. A urinalysis showed blood in Patient's urine, and she reported a history of hematuria related to recurrent urinary infections. Patient was on Ozempic for close to two years, achieving a 100-pound weight loss but discontinued it on 06/24/2024. During her hospitalization, Patient receive aspirin, plavix and was started on heparin drip, and 1 unit of packed red blood cells for acute blood loss anemia. She remained hemodynamically stable. The initial plan for cardiac catheterization was deferred due to acute anemia requiring transfusion. Patient was started on high-intensity statin therapy with atorvastatin 80 mg daily, carvedilol 6.25 mg twice daily for blood pressure control, and Imdur [address] scan of the chest, abdomen, and pelvis revealed multiple incidental findings, including bilateral pulmonary nodules (largest measuring 8.9 mm in the right lower lobe), a 12.7 mm left thyroid nodule, cardiomegaly, splenomegaly (15 cm), nodularity of the liver possibly suggesting cirrhosis, multiple bilateral breast nodules, and bladder wall thickening suggestive of cystitis. An echocardiogram showed an ejection fraction of 65% with grade 1 diastolic dysfunction and normal wall motion. Patient's hemocult was positive. Patient denies any history of smoking or malignancy. Patient was taken for EGD and colonscopy on which did not show any evidence of bleeding. Hemaglobin remained stable. Patient was taken for cardiac cath which showed Normal left main. Left and descending artery was found to have no significant lesions. The first diagonal branch was found to be totally occluded possibly after a spiral dissection in the proximal segment. No severe lesions were noted in the circumflex or the right coronary artery. The right coronary artery was found to be codominant. LVEDP of [address] Ames I reviewed and discussed the cardiac arrhythmia findings with the Dr. Coats. The coronary lesion was thought to be most likely related to SCAD. Considering the patient's symptom-free state, normal LV systolic function by echocardiogram, new pulmonary lesions, anemia, etc. it was thought to be appropriate to continue the medical treatment. Patient was cleared for discharge. She was to tollow up with PCP and cardiology after discharge. Referral to Oncology was going to be sent by PCP office. Physical Exam Narrative: GENERAL: The patient is alert and oriented times three. Not in any acute distress. Obese HEENT: Grossly unremarkable NECK: Trachea appears to be central. No masses noted. No JVD or thyromegaly appreciated. RESPIRATORY: Chest is symmetrical. No intercostals muscle retraction or any accessory muscle activation. There is no chest wall tenderness. Breath sounds are heard bilaterally. No rales or rhonchi heard. No evidence of any consolidation. BREASTS: Deferred. HEART: The heart sounds are normal. No S3 or S4. No significant murmurs. No pericardial rub ABDOMEN: No vessel pulsations or distention. No tenderness. No organomegaly appreciated. Bowel sounds are normally heard. : Deferred. RECTAL: Deferred. Discharge Data Studies Completed and Pending Completed Studies During Hospitalization Category Date Time Status CT abdomen pelvis wo con [id number] Routine Cat Scan 09/27/24 12:05 Completed CTA chest [CT angio chest PE protcl [id number]] Routine Cat Scan 09/27/24 17:27 Completed [employer] BI DEVELOPER request for service Routine Exams 09/29/24 10:35 Completed XR chest 1V portable [id number] Stat Exams 09/25/24 18:59 Completed CV. echo complete* [id number] Routine Ultrasound 09/26/24 23:28 [place] thyroid [id number] Routine Ultrasound 09/29/24 09:08 Completed Pending at discharge Category Date Time Status Complete Blood Count w/Auto AM LABS Lab 10/01/24 04:00 Ordered Comprehensive Metabolic Panel AM LABS Lab 10/01/24 04:00 Ordered Radiology Impressions Chest X-Ray 09/25/24 18:59 IMPRESSION: Cardiomegaly, negative for infiltrate. Abdomen/Pelvis CT 09/27/24 12:05 IMPRESSION: 1. Innumerable solid pulmonary nodules in the visualized lung bases. Findings are suspicious for metastatic disease. Recommend correlation with primary oncologic history. 2. Hepatosplenomegaly. 3. Moderate left ventral abdominal wall hernia containing the transverse colon without evidence bowel obstruction or strangulation. 4. Multiple nodules seen in the bilateral breast soft tissues. Recommend mammographic correlation. 5. The urinary bladder is underdistended limiting evaluation however there is mild urinary bladder wall thickening. Recommend correlation with urinalysis to exclude cystitis. 6. Other findings as described in the body of the report. ADDENDUM: 09/27/24 1604 COMMENT: THIS REPORT CONTAINS FINDINGS THAT MAY BE CRITICAL TO PATIENT CARE. The exam findings were verbally communicated by me to SCOT BAILEY via telephone conference at 4:02 PM CDT on 09/27/2024. The findings were acknowledged and understood. Chest CTA 09/27/24 17:27 IMPRESSION: 1. Patchy ground-glass airspace opacities suggestive of an underlying infectious or inflammatory process. 2. Several bilateral pulmonary nodules, not well visualized given motion artifact, the largest which in the right lower lobe measures 8.9 mm, series 7, image 259. Consider non-emergent PET/CT or tissue sampling.(Reference: Malcolm) 3. Left thyroid lobe 12.7 mm low-density nodule, ultrasound could further evaluate this. 4. Cardiomegaly. 5. Spleen enlarged 15 cm. 6. Hepatic nodularity suspected suggestive of a cirrhotic liver. 7. Multilevel bridging degenerative changes throughout the spine. COMMENTS: Consistent with the [place] [employer]'s Incidental Findings Committee white paper (J Am Иван Radiol 2015): In patients aged 35 years and older with an incidental thyroid nodule equal to or greater than 1.[address], MRI or extrathyroidal US, further evaluation with dedicated thyroid US is recommended for patients with normal life expectancy and without comorbidities. For smaller nodules without suspicious features, no further evaluation or follow up is recommended. REFERENCES: Malcolm Robert, et al. Guidelines for Management of Incidental Pulmonary Nodules Detected on CT Images: From the Fleischner Society 2017. Radiology. 2017;284(1):228-243. Thyroid Ultrasound 09/29/24 09:08 IMPRESSION: Small cystic lesion LEFT mid thyroid measuring 9 x 9 mm TIRADS Category 1: Benign (total points = 0) No FNA Spongiform lesion in LEFT mid thyroid measuring 8 x 8 x 7 mm TIRADS Category 1: Benign (spongiform nodule) (total points = 0) No FNA Laboratory Results WBC 8.12 10^3/uL (3.29-11.43) 09/30/24 04:03 RBC 4.16 10^6/uL (3.85-5.65) 09/30/24 04:03 Hgb 9.00 g/dL (11.27-16.99) L 09/30/24 04:03 Hct 31.6 % (36-47) L 09/30/24 04:03 MCV 76.0 fl (85-98) L 09/30/24 04:03 MCH 21.6 pg (27-33) L 09/30/24 04:03 MCHC 28.5 g/dL (30-55) L 09/30/24 04:03 RDW 18.2 % (12.1-15.1) H 09/30/24 04:03 Plt Count 169 10^3/cmm (157-399) 09/30/24 04:03 MPV 9.8 fL (7.4-10.4) 09/30/24 04:03 Neut % (Auto) 69.5 % 09/30/24 04:03 Lymph % (Auto) 19.1 % 09/30/24 04:03 [place] % (Auto) 9.5 % 09/30/24 04:03 Eos % (Auto) 1.0 % 09/30/24 04:03 Baso % (Auto) 0.5 % 09/30/24 04:03 Neut # (Auto) 5.65 10^3/uL (1.8-7.7) 09/30/24 04:03 Lymph # (Auto) 1.6 10^3/uL (0.8-4.8) 09/30/24 04:03 [place] # (Auto) 0.8 10^3/uL (0.2-0.9) 09/30/24 04:03 Eos # (Auto) 0.1 10^3/uL (0.0-0.8) 09/30/24 04:03 Baso # (Auto) 0.0 10^3/uL (0.0-0.1) 09/30/24 04:03 Nucleated RBC % (auto) 0 % 09/30/24 04:03 Nucleated RBCs # 0.0 /100WBC 09/30/24 04:03 APTT 62.7 SECONDS (23.9-36.7) H 09/29/24 15:07 D-Dimer 0.60 ug/mLFEU (0-0.59) H 09/25/24 19:38 Sodium 135 mmol/L (136-145) L 09/30/24 04:03 Potassium 4.3 mmol/L (3.5-5.1) 09/30/24 04:03 Chloride 103 mmol/L (98-107) 09/30/24 04:03 Carbon Dioxide 22 mmol/L (22-29) 09/30/24 04:03 Anion Gap 14.3 (5-19) 09/30/24 04:03 BUN 29 mg/dL (8-23) H 09/30/24 04:03 Creatinine 1.3 mg/dL (0.5-0.9) H 09/30/24 04:03 GFR Calculation 41.6 mL/min (90-130) L 09/30/24 04:03 Glucose 129 mg/dL (65-115) H 09/30/24 04:03 POC Glucose 148 mg/dL (70-110) H 09/30/24 06:24 Estimat Average Glucose 171 09/25/24 19:38 Hemoglobin A1c 7.6 % (4.0-6.0) H 09/25/24 19:38 Calculated Osmolality 288 mOsm/kg (285-295) 09/30/24 04:03 Calcium 8.6 mg/dL (8.5-10.5) 09/30/24 04:03 Magnesium 2.0 mg/dL (1.7-2.3) 09/26/24 04:54 Iron 34 ug/dL (37-145) L 09/26/24 04:54 TIBC 316 mcg/dl 09/26/24 04:54 % Saturation 10.7 % (20-50) L 09/26/24 04:54 Unsat Iron Binding 282 ug/dL (112-347) 09/26/24 04:54 Ferritin 22 ng/mL (15-150) 09/26/24 04:54 Total Bilirubin 0.5 mg/dL (0.15-1.2) 09/30/24 04:03 Direct Bilirubin 0.20 mg/dL (0.00-0.30) 09/26/24 04:54 AST 16 U/L (0-32) 09/30/24 04:03 ALT 12 U/L (0-33) 09/30/24 04:03 Alkaline Phosphatase 89 U/L (35-105) 09/30/24 04:03 Troponin T Baseline 33 ng/L (0-10) H 09/25/24 19:38 Troponin T 120 Minute 58.26 ng/L (0-10) H 09/25/24 20:57 Delta Troponin T 25.26 ABS# (0-10) H* 09/25/24 20:57 Troponin T Hi Sens 6Hr 151.8 ng/L (0-10) H 09/26/24 01:06 Troponin T Hi Sens 6Hr Delta 118.8 ng/L (0-12) H* 09/26/24 01:06 C-Reactive Protein 19.6 mg/L (0.0-4.9) H 09/26/24 04:54 Total Protein 7.6 g/dL (6.6-8.7) 09/30/24 04:03 Albumin 3.8 g/dL (3.5-5.2) 09/30/24 04:03 Globulin 3.8 g/dL (1.3-4.6) 09/30/24 04:03 Vitamin B12 Cancelled 09/26/24 04:54 Folate 12.1 ng/mL (4.8-37.3) 09/26/24 04:54 TSH 1.21 uIU/mL (0.27-4.20) 09/29/24 03:35 Urine Color Red (Yellow) A 09/27/24 00:22 Urine Appearance Turbid (CLEAR) A 09/27/24 00:22 Urine pH 5.0 (5-7) 09/27/24 00:22 Ur Specific [place] 1.013 (1.005-1.030) 09/27/24 00:22 Urine Protein 2+ (Negative) A 09/27/24 00:22 Urine Glucose (UA) Negative (Normal) 09/27/24 00:22 Urine Ketones Negative (Negative) 09/27/24 00:22 Urine Blood 3+ (Negative) A 09/27/24 00:22 Urine Nitrate Negative (Negative) 09/27/24 00:22 Urine Bilirubin 1+ (Negative) H 09/27/24 00:22 Urine Urobilinogen 0.2 mg/dL (Negative) 09/27/24 00:22 Ur Leukocyte Esterase 2+ (Negative) A 09/27/24 00:22 Urine RBC >100 /hpf (0-2) H 09/27/24 00:22 Urine WBC >100 /hpf (0-5) H 09/27/24 00:22 Ur Squamous Epith Cells 0-5 /hpf (0-5) 09/27/24 00:22 Amorphous Sediment Not Reportable 09/27/24 00:22 Urine Bacteria Trace /hpf (NONE) 09/27/24 00:22 Hyaline Casts 1.13 /lpf 09/27/24 00:22 Blood Type O Positive 09/27/24 13:11 Rho(D) Type Rh positive 09/27/24 13:11 Antibody Screen Negative 09/27/24 13:11 Crossmatch See Detail 09/27/24 13:11 Vitals Last Vital Signs Temp 97.4 F L 09/30/24 08:00 Pulse 70 09/30/24 08:00 Resp 22 H 09/30/24 08:00 BP 121/63 09/30/24 08:00 Pulse Ox 100 09/30/24 08:00 O2 Del Method Room Air 09/30/24 08:00 Discharge Plan Discharge Patient Disposition: Home Condition: Stable Prescriptions: New isosorbide mononitrate 30 mg Tablet Extended Release 24 Hr 30 mg PO BEDTIME Qty: 30 0RF aspirin 81 mg Tablet,Delayed Release (Dr/Ec) 81 mg PO DAILY Qty: 30 0RF Continued insulin glargine [Basaglar KwikPen U-100 Insulin] 100 unit/mL (3 mL) insulin pen See Rx Instructions SUBCUT .COMPLEX Qty: 15 11RF Rx Instructions: subcutaneously; 40 units in AM, 20 in PM. allopurinol 100 mg tablet 100 mg PO DAILY Qty: 90 11RF fluconazole 150 mg tablet 150 mg PO Q3D 0 Days Qty: 2 5RF Discontinued lidocaine (PF) 10 mg/mL (1 %) solution 10 mg SUBCUT ONCE Qty: 1 0RF spironolactone 25 mg tablet See Rx Instructions .ROUTE .COMPLEX Qty: 90 3RF Dose Instruction: TAKE 1 TABLET BY MOUTH EVERY DAY Rx Instructions: TAKE 1 TABLET BY MOUTH EVERY DAY losartan 100 mg tablet See Rx Instructions .ROUTE .COMPLEX Qty: 30 11RF Dose Instruction: TAKE 1 TABLET BY MOUTH EVERY DAY Rx Instructions: TAKE 1 TABLET BY MOUTH EVERY DAY naproxen 500 mg tablet See Rx Instructions .ROUTE .COMPLEX Qty: 180 3RF Dose Instruction: TAKE 1 TABLET BY MOUTH TWICE DAILY Rx Instructions: TAKE 1 TABLET BY MOUTH TWICE DAILY No Action losartan 50 mg tablet 50 mg PO DAILY Qty: 30 11RF clopidogrel 75 mg tablet 75 mg PO DAILY Qty: 30 11RF carvedilol 6.25 mg tablet 6.25 mg PO BID Qty: 60 11RF atorvastatin 80 mg tablet 80 mg PO DAILY Qty: 30 11RF ferrous gluconate 324 mg (37.5 mg iron) tablet 324 mg PO BID Qty: 60 1RF Discharge Orders: Discharge Order (Routine); Ordered 09/30/24 Ordered By: Jack Guerrero Referrals: Veronica Espinoza FNP [Nurse Practitioner] - 10/12/24 4:00 pm Cheko Lyno MD [Primary Care Provider] - 10/08/24 10:30 am Discharge Diet: Cardiac and Diabetic Discharge Activity: Increase activity as tolerated Patient Instructions: Anemia, Isosorbide Dinitrate (By mouth), Aspirin (By mouth), Losartan (By mouth) (Cozaar), Atorvastatin (By mouth), Carvedilol (By mouth), Clopidogrel (By mouth), Heart Attack (DC), Chronic Kidney Disease (GEN), Heart Catheterization (DC), Opioid Safety, Post Angiogram Home Care Instructions, Post Heart Attack Stoplight Discharge Attestations Time Spent in Discharge Care*: greater than 30 min Quality Metrics Clinical Quality Measures [ Acute Myocardial Infaction { Clinical Trial Participant: No; Contraindication to aspirin: None; Aspirin prescribed; Contraindication to statin: None; Statin prescribed; Contraindication to PCI: None; PCI performed;}] Coding Level of Care Code Acute Code for Chg Fwd Diagnoses Non-STEMI (non-ST elevated myocardial infarction) I21.4 Controlled type 2 diabetes mellitus without complication, with long-term current use of insulin E11.9; Z79.4 Diabetes mellitus complication status: without complication Diabetes mellitus 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
[2024-09-30] MEDS: clopidogrel 75 mg Tablet PO (09:56)
[2024-09-30] MEDS: losartan 50 mg Tablet PO (10:02)
[2024-09-30] MEDS: carvedilol 6.25 mg Tablet PO (10:03)
--- NOTE | 2024-09-30 12:55 | PC.NURSE ---
discharge instructions given and explained.pt verb understanding of instructions.discharged via w/c to exit [id number].sister to drive pt home
--- NOTE | 2024-09-30 13:39 | P.PN_ITS ---
Subjective 2 Subjective: Patient had the cardiac catheterization yesterday. 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 Elevated LVEDP of 31 mmHg. Vitals/I&O/Wt Last Vital Signs Temp 97.7 F 09/30/24 12:00 Pulse 79 09/30/24 12:00 Resp 20 H 09/30/24 12:00 BP 126/65 09/30/24 12:00 Pulse Ox 99 09/30/24 12:00 O2 Del Method Room Air 09/30/24 12:00 09/29/24 09/30/24 09/30/24 22:59 06:59 14:59 Intake Total 2183.417 / 2183.417 100 / 2283.417 360 / 360 Balance 2183.417 / 2183.417 100 / 2283.417 360 / 360 Physical Exam 2 Narrative: GENERAL: The patient is alert and oriented times three. Not in any acute distress. Obese HEENT: No significant pallor, icterus or lymphadenopathy.Oral cavity: There are no mucous membrane lesions. NECK: Trachea appears to be central. No masses noted. No JVD or thyromegaly appreciated. RESPIRATORY: Chest is symmetrical. No intercostals muscle retraction or any accessory muscle activation. There is no chest wall tenderness. Breath sounds are heard bilaterally. No rales or rhonchi heard. No evidence of any consolidation. BREASTS: Deferred. HEART: The heart sounds are normal. No S3 or S4. No significant murmurs. No pericardial rub ABDOMEN: No vessel pulsations or distention. No tenderness. No organomegaly appreciated. Bowel sounds are normally heard. : Deferred. RECTAL: Deferred. LYMPHATIC: No lymphadenopathy noted in the neck. EXTREMITIES: Trace edema bilaterally with no cyanosis. MUSCULOSKELETAL: No acute joint deformities or swelling SKIN: There are no significant rashes or ecchymosis NEUROPSYCHIATRIC: The patient is alert and oriented x3. Appears to be in a good mood. No tremors or rigidity noted. Data 09/30/24 04:03 09/30/24 04:03 Other Labs: Laboratory Last Values WBC 8.12 10^3/uL (3.29-11.43) 09/30/24 04:03 RBC 4.16 10^6/uL (3.85-5.65) 09/30/24 04:03 Hgb 9.00 g/dL (11.27-16.99) L 09/30/24 04:03 Hct 31.6 % (36-47) L 09/30/24 04:03 MCV 76.0 fl (85-98) L 09/30/24 04:03 MCH 21.6 pg (27-33) L 09/30/24 04:03 MCHC 28.5 g/dL (30-55) L 09/30/24 04:03 RDW 18.2 % (12.1-15.1) H 09/30/24 04:03 Plt Count 169 10^3/cmm (157-399) 09/30/24 04:03 MPV 9.8 fL (7.4-10.4) 09/30/24 04:03 Neut % (Auto) 69.5 % 09/30/24 04:03 Lymph % (Auto) 19.1 % 09/30/24 04:03 [place] % (Auto) 9.5 % 09/30/24 04:03 Eos % (Auto) 1.0 % 09/30/24 04:03 Baso % (Auto) 0.5 % 09/30/24 04:03 Neut # (Auto) 5.65 10^3/uL (1.8-7.7) 09/30/24 04:03 Lymph # (Auto) 1.6 10^3/uL (0.8-4.8) 09/30/24 04:03 [place] # (Auto) 0.8 10^3/uL (0.2-0.9) 09/30/24 04:03 Eos # (Auto) 0.1 10^3/uL (0.0-0.8) 09/30/24 04:03 Baso # (Auto) 0.0 10^3/uL (0.0-0.1) 09/30/24 04:03 Nucleated RBC % (auto) 0 % 09/30/24 04:03 Nucleated RBCs # 0.0 /100WBC 09/30/24 04:03 APTT 62.7 SECONDS (23.9-36.7) H 09/29/24 15:07 D-Dimer 0.60 ug/mLFEU (0-0.59) H 09/25/24 19:38 Sodium 135 mmol/L (136-145) L 09/30/24 04:03 Potassium 4.3 mmol/L (3.5-5.1) 09/30/24 04:03 Chloride 103 mmol/L (98-107) 09/30/24 04:03 Carbon Dioxide 22 mmol/L (22-29) 09/30/24 04:03 Anion Gap 14.3 (5-19) 09/30/24 04:03 BUN 29 mg/dL (8-23) H 09/30/24 04:03 Creatinine 1.3 mg/dL (0.5-0.9) H 09/30/24 04:03 GFR Calculation 41.6 mL/min (90-130) L 09/30/24 04:03 Glucose 129 mg/dL (65-115) H 09/30/24 04:03 POC Glucose 148 mg/dL (70-110) H 09/30/24 06:24 Estimat Average Glucose 171 09/25/24 19:38 Hemoglobin A1c 7.6 % (4.0-6.0) H 09/25/24 19:38 Calculated Osmolality 288 mOsm/kg (285-295) 09/30/24 04:03 Calcium 8.6 mg/dL (8.5-10.5) 09/30/24 04:03 Magnesium 2.0 mg/dL (1.7-2.3) 09/26/24 04:54 Iron 34 ug/dL (37-145) L 09/26/24 04:54 TIBC 316 mcg/dl 09/26/24 04:54 % Saturation 10.7 % (20-50) L 09/26/24 04:54 Unsat Iron Binding 282 ug/dL (112-347) 09/26/24 04:54 Ferritin 22 ng/mL (15-150) 09/26/24 04:54 Total Bilirubin 0.5 mg/dL (0.15-1.2) 09/30/24 04:03 Direct Bilirubin 0.20 mg/dL (0.00-0.30) 09/26/24 04:54 AST 16 U/L (0-32) 09/30/24 04:03 ALT 12 U/L (0-33) 09/30/24 04:03 Alkaline Phosphatase 89 U/L (35-105) 09/30/24 04:03 Troponin T Baseline 33 ng/L (0-10) H 09/25/24 19:38 Troponin T 120 Minute 58.26 ng/L (0-10) H 09/25/24 20:57 Delta Troponin T 25.26 ABS# (0-10) H* 09/25/24 20:57 Troponin T Hi Sens 6Hr 151.8 ng/L (0-10) H 09/26/24 01:06 Troponin T Hi Sens 6Hr Delta 118.8 ng/L (0-12) H* 09/26/24 01:06 C-Reactive Protein 19.6 mg/L (0.0-4.9) H 09/26/24 04:54 Total Protein 7.6 g/dL (6.6-8.7) 09/30/24 04:03 Albumin 3.8 g/dL (3.5-5.2) 09/30/24 04:03 Globulin 3.8 g/dL (1.3-4.6) 09/30/24 04:03 Vitamin B12 Cancelled 09/26/24 04:54 Folate 12.1 ng/mL (4.8-37.3) 09/26/24 04:54 TSH 1.21 uIU/mL (0.27-4.20) 09/29/24 03:35 Urine Color Red (Yellow) A 09/27/24 00:22 Urine Appearance Turbid (CLEAR) A 09/27/24 00:22 Urine pH 5.0 (5-7) 09/27/24 00:22 Ur Specific [place] 1.013 (1.005-1.030) 09/27/24 00:22 Urine Protein 2+ (Negative) A 09/27/24 00:22 Urine Glucose (UA) Negative (Normal) 09/27/24 00:22 Urine Ketones Negative (Negative) 09/27/24 00:22 Urine Blood 3+ (Negative) A 09/27/24 00:22 Urine Nitrate Negative (Negative) 09/27/24 00:22 Urine Bilirubin 1+ (Negative) H 09/27/24 00:22 Urine Urobilinogen 0.2 mg/dL (Negative) 09/27/24 00:22 Ur Leukocyte Esterase 2+ (Negative) A 09/27/24 00:22 Urine RBC >100 /hpf (0-2) H 09/27/24 00:22 Urine WBC >100 /hpf (0-5) H 09/27/24 00:22 Ur Squamous Epith Cells 0-5 /hpf (0-5) 09/27/24 00:22 Amorphous Sediment Not Reportable 09/27/24 00:22 Urine Bacteria Trace /hpf (NONE) 09/27/24 00:22 Hyaline Casts 1.13 /lpf 09/27/24 00:22 Blood Type O Positive 09/27/24 13:11 Rho(D) Type Rh positive 09/27/24 13:11 Antibody Screen Negative 09/27/24 13:11 Crossmatch See Detail 09/27/24 13:11 Micro: Microbiology 09/27/24 00:22 Urine Culture - Final Urine,Clean Catch A&P Assessment and plan (1) Non-STEMI (non-ST elevated myocardial infarction): Patient status post cardiac catheterization. 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 Since the artery was completely occluded, it was decided to continue the medical treatment. She may be kept on the aspirin Plavix for a month and then the Plavix may be discontinued. May continue the Lipitor (2) Controlled type 2 diabetes mellitus: The blood sugar is fairly under control. This may be closely monitored. 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 I will cut back on the losartan to 50 mg p.o. daily. Isosorbide mononitrate 30 mg p.o. daily. The isosorbide mononitrate may be given in the morning and the losartan in the evening. Continue the dose of the Coreg 6.25 mg p.o. twice daily. Qualifiers: Hypertension type: primary hypertension Qualified Code(s): I10 - Essential (primary) hypertension (4) Anemia: The hemoglobin is gradually improving. Further workup as an outpatient by the PCP Qualifiers: Anemia type: other cause Other causes of anemia: other cause, not classified Qualified Code(s): D64.89 - Other specified anemias (5) Renal insufficiency: The BUN/creatinine seems to be stable with no significant change. Plan The other problems are GERD Obesity Mild hyperkalemia Lung lesions? If the patient continues to be stable, may be discharged home with the above medications. Appointment at the [facility] to be seen by the nurse practitioner in 1 week Appoint with me in the office in 1 month PDMP PDMP Reviewed: Not Reviewed Attestations 2 Medical Necessity Statement*: Disposition as per the primary Coding Level of Care Code 87105 Diagnoses Non-STEMI (non-ST elevated myocardial infarction) I21.4 Controlled type 2 diabetes mellitus without complication, with long-term current use of insulin E11.9; Z79.4 Diabetes mellitus fpc insulin use: with dedicated intermodal truck driver use Diabetes mellitus complication status: without complication Primary hypertension I10 Hypertension type: primary hypertension Anemia due to other cause, not classified D64.89 Anemia type: other cause Other causes of anemia: other cause, not classified Renal insufficiency N28.9
== END 2024-09-30 12:30 | disposition home or self-care (01) | DRG 281 ==
LOC: ER 21:45 → CSU 23:52
PROVIDERS: Internal Medicine Cardiovascular Disease; Student in an Organized Health Care Education/Training Program; Admitting Provider Internal Medicine; Emergency Provider Emergency Medicine; PCP Family Medicine; Visit Provider Hospitalist
PROC: 0DJ08ZZ Inspection of Upper Intestinal Tract, Via Natural or Artificial Opening Endoscopic (ICD-10-PCS; principal; 2024-09-28 12:00)
PROC: 0DJD8ZZ Inspection of Lower Intestinal Tract, Via Natural or Artificial Opening Endoscopic (ICD-10-PCS; CPT 45378; 2024-09-28 12:00)
PROC: B211YZZ Fluoroscopy of Multiple Coronary Arteries using Other Contrast (ICD-10-PCS; principal; 2024-09-29 16:30)
DX: I21.4 Non-ST elevation (NSTEMI) myocardial infarction (principal); D62 Acute posthemorrhagic anemia; Z68.41 Body mass index [BMI] 40.0-44.9, adult; N39.0 Urinary tract infection, site not specified; I25.10 Atherosclerotic heart disease of native coronary artery without angina pectoris; E11.51 Type 2 diabetes mellitus with diabetic peripheral angiopathy without gangrene; Z79.4 Long term (current) use of insulin; I10 Essential (primary) hypertension; D64.89 Other specified anemias; N28.9 Disorder of kidney and ureter, unspecified; K21.9 Gastro-esophageal reflux disease without esophagitis; E66.01 Morbid (severe) obesity due to excess calories; E87.5 Hyperkalemia; M10.9 Gout, unspecified; K29.50 Unspecified chronic gastritis without bleeding; K57.30 Diverticulosis of large intestine without perforation or abscess without bleeding; R19.5 Other fecal abnormalities; Z87.440 Personal history of urinary (tract) infections; N63.0 Unspecified lump in unspecified breast; E04.1 Nontoxic single thyroid nodule; R91.8 Other nonspecific abnormal finding of lung field
CPT/HCPCS: 36415; 36416; 36430; 71045; 71275; 74176; 76536; 80048; 80053; 80076; 81001; 82274; 82607; 82728; 82746; 82962; 83036; 83540; 83550; 83735; 84443; 84484; 85025; 85347; 85378; 85730; 86140; 86850; 86900; 86920; 87086; 93005; 93306; 93458; 96372; 96374; 96376; 99152; 99153; 99285; A9270; C1769; C1887; C1894; J0696; J1644; J1650; J1815; J2250; J2470; J2704; J3010; J3490; J7030; J9999; P9016; Q0163; Q9967

== ENCOUNTER 2024-10-05 08:38 | Oncology outpatient (recurring) (ONCR) | payer OTHER, SELFPAY | END 2024-10-05 23:59 | disposition home or self-care (01) | PROVIDERS: PCP Family Medicine; Visit Provider Internal Medicine Medical Oncology | DX: Z53.9 Procedure and treatment not carried out, unspecified reason (principal) ==

== ENCOUNTER → 2024-10-07 10:37 | Outpatient (BNVA) | payer OTHER, SELFPAY | PROVIDERS: PCP Family Medicine; Visit Provider Family Medicine | DX: N28.9 Disorder of kidney and ureter, unspecified (principal); D64.9 Anemia, unspecified | CPT/HCPCS: 80048; 85025 ==

== ENCOUNTER 2024-10-15 07:58 | Outpatient (CLI) | payer OTHER, SELFPAY ==
--- NOTE | 2024-10-15 08:15 | MM_ITS ---
WS: [id number] BILATERAL 3D TOMOSYNTHESIS DIGITAL DIAGNOSTIC MAMMOGRAPHY WITH CAD CLINICAL INFORMATION: Breast nodules HISTORY: Diagnostic mammogram. Breast nodules on CT COMPARISON: CT 09/29 and mammo 2013. TECHNIQUE: Bilateral CC and MLO views. FINDINGS: The breasts are composed of heterogeneous fibroglandular density tissue, which can limit the detection of small underlying mass lesions. No suspicious mass, asymmetry, calcifications, or architectural distortion. No evidence of malignancy. Bilateral nodular breast tissue similar in appearance to 2014. A few incidental punctate calcifications. Skin calcifications. MM/MM diag tomosynthesis [id number] IMPRESSION: DENSITY:The breasts are heterogeneously dense, which may obscure small masses. BI-RADS: 2 - Benign FOLLOW UP: 1 Year Follow-up Recommend return to annual screening mammography.
== END 2024-10-15 07:59 | disposition home or self-care (01) ==
LOC: RAD 07:59
PROVIDERS: PCP Family Medicine; Visit Provider Internal Medicine Medical Oncology
DX: N63.10 Unspecified lump in the right breast, unspecified quadrant (principal); N63.20 Unspecified lump in the left breast, unspecified quadrant; R92.333 Mammographic heterogeneous density, bilateral breasts; R92.1 Mammographic calcification found on diagnostic imaging of breast
CPT/HCPCS: 77062; G0279

== ENCOUNTER → 2024-10-19 16:45 | Outpatient (BNVA) | payer OTHER, SELFPAY | PROVIDERS: PCP Family Medicine; Visit Provider Family Medicine | DX: D64.89 Other specified anemias (principal); R60.9 Edema, unspecified | CPT/HCPCS: 80048; 83880; 85025 ==

== ENCOUNTER → 2024-11-05 08:38 | Outpatient (BNVA) | payer OTHER, SELFPAY | PROVIDERS: PCP Family Medicine; Visit Provider Family Medicine | DX: I10 Essential (primary) hypertension (principal); I25.10 Atherosclerotic heart disease of native coronary artery without angina pectoris; E11.9 Type 2 diabetes mellitus without complications; Z79.4 Long term (current) use of insulin; D64.89 Other specified anemias | CPT/HCPCS: 80053; 83880; 85025 ==

== ENCOUNTER 2024-12-01 17:04 | Oncology outpatient (recurring) (ONCR) | payer OTHER, SELFPAY ==
--- NOTE | 2024-12-01 17:15 | CT_ITS ---
WS: [id number] CT chest w con* [id number] HISTORY: Abnormal finding on lung imaging; compare to previous TECHNIQUE: Axial imaging performed through the thorax. Coronal and sagittal reformats are submitted. All CT scans at [facility] use at least one of these dose optimization techniques: automated exposure control; mA and/or kV adjustment per patient size (includes targeted exams where dose is matched to clinical indication); or iterative reconstruction. CONTRAST: Omnipaque 350; 100 mL IV. DLP: 679.02 mGy.cm COMPARISON: 09/27/2024 Lungs and central airway: Moderate pulmonary hyperexpansion. There is continued patchy areas of variable attenuation throughout both lungs. Diameter of the vessels coursing through the different areas of attenuation are similar suggesting this is groundglass opacification. Reidentified are numerous david ateral pulmonary nodules ranging in size from a few millimeters to 9 mm. Largest nodule in the RIGHT lower lobe. Nodules not changed significantly in size from 09/27/2024. No pneumothorax. Pleura: Normal. No pleural effusion. Heart and pericardium: Mild cardiomegaly. Mediastinum and heather: No mediastinum or hilar adenopathy. Vessels: Normal size pulmonary artery and aorta. Chest wall and lower neck: Nodular enlarged thyroid. Coarse calcifications in the LEFT thyroid. Upper abdomen: Moderate size hiatal hernia. The entire liver and spleen are not included with this chest CT but there does appear to be hepatosplenomegaly. No adrenal mass. Osseous structures: Mild thoracic spondylosis. No destructive bone lesions. CT/CT chest w con* [id number] IMPRESSION: 1. Continued variable attenuation throughout both lungs, most significant with groundglass opacification and small airways disease. 2. Numerous bilateral pulmonary nodules ranging in size from a few millimeters to 9 mm. Similar to the prior study. Metastatic versus postinflammatory nodule s. 3. No mediastinal or hilar adenopathy. 4. Mild cardiomegaly. 5. Hepatosplenomegaly.
[2024-12-01] MEDS: iohexol 350 mg/mL 500 mL Btl (per mL) IV (17:36)
== END 2024-12-05 23:59 | disposition home or self-care (01) ==
PROVIDERS: PCP Family Medicine; Visit Provider Internal Medicine Medical Oncology
DX: R91.8 Other nonspecific abnormal finding of lung field (principal); I51.7 Cardiomegaly; R16.2 Hepatomegaly with splenomegaly, not elsewhere classified; E04.2 Nontoxic multinodular goiter; R93.89 Abnormal findings on diagnostic imaging of other specified body structures; K44.9 Diaphragmatic hernia without obstruction or gangrene; M47.894 Other spondylosis, thoracic region
CPT/HCPCS: 71260

== ENCOUNTER 2024-12-07 12:42 | Oncology outpatient (recurring) (ONCR) | payer OTHER, SELFPAY ==
[2024-12-07 13:12] LABS: Basophils % 0.4 %; Eosinophils # 0.1 10^3/uL (0.0-0.8); Eosinophils % 1.8 %; Hematocrit 35.2 % (36-47); Lymphocytes # 1.6 10^3/uL (0.8-4.8); Lymphocytes % 21.4 %; Mean Corpuscular HGB Conc 29.8 g/dL (30-55); Mean Corpuscular Hemoglobin 23.3 pg (27-33); Mean Corpuscular Volume 78.2 fl (85-98); Mean Platelet Volume 9.5 fL (7.4-10.4); Monocytes # 0.6 10^3/uL (0.2-0.9); Monocytes % 7.7 %; Neutrophils # 4.93 10^3/uL (1.8-7.7); Neutrophils % 68.1 %; Nucleated Red Blood Cells % 0 %; Platelet Count 157 10^3/cmm (157-399); Red Cell Distribution Width 18.1 % (12.1-15.1); White Blood Count 7.24 10^3/uL (3.29-11.43)
[2024-12-07 13:30] LABS: Alanine Aminotransferase 18 U/L (0-33); Albumin Level 3.7 g/dL (3.5-5.2); Alkaline Phosphatase 122 U/L (35-105); Anion Gap 16.5 (5-19); Aspartate Amino Transferase 18 U/L (0-32); Blood Urea Nitrogen 21 mg/dL (8-23); Calcium 9.3 mg/dL (8.5-10.5); Carbon Dioxide 25 mmol/L (22-29); Chloride 101 mmol/L (98-107); Glomerular Filtration Rate 85.1 mL/min (90-130); Glucose 240 mg/dL (65-115); Osmolality Calculated 297 mOsm/kg (285-295); Potassium 4.5 mmol/L (3.5-5.1); Sodium 138 mmol/L (136-145); Total Bilirubin 0.5 mg/dL (0.15-1.2); Total Protein 7.7 g/dL (6.6-8.7)
[2024-12-07 14:05] LABS: Ferritin 52 ng/mL (15-150); Iron 38 ug/dL (37-145); Total Iron Binding Capacity 270 mcg/dl; Unsaturated Iron Binding 232 ug/dL (112-347)
== END 2025-01-04 23:59 | disposition home or self-care (01) ==
PROVIDERS: PCP Family Medicine; Visit Provider Internal Medicine Medical Oncology
DX: D50.9 Iron deficiency anemia, unspecified (principal)
CPT/HCPCS: 36415; 80053; 82728; 83540; 83550; 85025

== ENCOUNTER → 2025-01-13 09:08 | Outpatient (BNVA) | payer OTHER, SELFPAY | PROVIDERS: PCP Family Medicine; Visit Provider Family Medicine | DX: I10 Essential (primary) hypertension (principal); I25.10 Atherosclerotic heart disease of native coronary artery without angina pectoris; E11.9 Type 2 diabetes mellitus without complications; Z79.4 Long term (current) use of insulin; D64.89 Other specified anemias | CPT/HCPCS: 80053; 83036; 85025 ==

== ENCOUNTER 2025-02-08 12:01 | Oncology outpatient (recurring) (ONCR) | payer OTHER, SELFPAY ==
[2025-02-08 12:21] LABS: Hematocrit 34.8 % (36-47); Hemoglobin 10.90 g/dL (11.27-16.99); Mean Corpuscular HGB Conc 31.3 g/dL (30-55); Mean Corpuscular Hemoglobin 24.9 pg (27-33); Mean Corpuscular Volume 79.5 fl (85-98); Nucleated Red Blood Cells % 0 %; Platelet Count 128 10^3/cmm (157-399); Red Blood Count 4.38 10^6/uL (3.85-5.65); White Blood Count 6.41 10^3/uL (3.29-11.43)
[2025-02-08 12:47] LABS: Alanine Aminotransferase 15 U/L (0-33); Albumin Level 3.8 g/dL (3.5-5.2); Alkaline Phosphatase 134 U/L (35-105); Anion Gap 16.1 (5-19); Aspartate Amino Transferase 16 U/L (0-32); Blood Urea Nitrogen 20 mg/dL (8-23); Calcium 8.9 mg/dL (8.5-10.5); Carbon Dioxide 25 mmol/L (22-29); Chloride 104 mmol/L (98-107); Creatinine Clr Calc Pharmacy 104.2168; Ferritin 111 ng/mL (15-150); Globulin 3.3 g/dL (1.3-4.6); Glucose 239 mg/dL (65-115); Iron 54 ug/dL (37-145); Osmolality Calculated 302 mOsm/kg (285-295); Potassium 4.1 mmol/L (3.5-5.1); Sodium 141 mmol/L (136-145); Total Iron Binding Capacity 271 mcg/dl; Total Protein 7.1 g/dL (6.6-8.7); Unsaturated Iron Binding 217 ug/dL (112-347)
[2025-02-08 12:59] LABS: Vitamin B12 517 pg/mL (232-1245)
== END 2025-03-07 23:59 | disposition home or self-care (01) ==
PROVIDERS: PCP Family Medicine; Visit Provider Internal Medicine Medical Oncology
DX: D50.9 Iron deficiency anemia, unspecified (principal); R03.0 Elevated blood-pressure reading, without diagnosis of hypertension
CPT/HCPCS: 36415; 80053; 82607; 82728; 82746; 83540; 83550; 85025

== ENCOUNTER 2025-03-01 20:10 | Outpatient (CLI) | payer OTHER, SELFPAY | END 2025-03-01 20:11 | disposition home or self-care (01) | LOC: SLEEP 20:11 | PROVIDERS: PCP Family Medicine; Visit Provider Internal Medicine Pulmonary Disease | DX: G47.10 Hypersomnia, unspecified (principal) | CPT/HCPCS: 95810 ==

== ENCOUNTER 2025-03-30 08:23 | Outpatient (CLI) | payer OTHER, SELFPAY ==
--- NOTE | 2025-03-30 08:30 | CT_ITS ---
WS: [id number] CT CHEST TECHNIQUE: Noncontrast CT of the chest with coronal and sagittal reformatted images. CLINICAL INFORMATION: LUNG NODULES COMPARISON: 12/01/2024 DLP: [address] scans at [facility] [place] use at least one of these dose optimization techniques: automated exposure control; mA and/or kV adjustment per patient size (includes targeted exams where dose is matched to clinical indication); or iterative reconstruction. FINDINGS: Again seen are numerous small pulmonary nodules throughout both lungs largest measuring approximately 9 mm RIGHT lower lobe posterior medially unchanged from previous. Numerous scattered subcentimeter nodules throughout both lungs similar to the prior study considering differences in technique and high-resolution imaging today. Cardiomegaly. No mediastinal or hilar lymphadenopathy. Nodular thyroid. Coarse calcifications in the LEFT thyroid similar to previous. Moderate esophageal hiatal hernia. Hepatomegaly. Splenomegaly. Hypertrophic changes thoracic spine. CT/CT chest ION (PULM ONLY) [id number] IMPRESSION: 1. Images obtained for intraoperative navigational purposes
== END 2025-03-30 08:24 | disposition home or self-care (01) ==
LOC: RAD 08:25
PROVIDERS: PCP Family Medicine; Visit Provider Internal Medicine
DX: R91.8 Other nonspecific abnormal finding of lung field (principal); I51.7 Cardiomegaly; E04.1 Nontoxic single thyroid nodule; K44.9 Diaphragmatic hernia without obstruction or gangrene; R16.2 Hepatomegaly with splenomegaly, not elsewhere classified; M47.814 Spondylosis without myelopathy or radiculopathy, thoracic region
CPT/HCPCS: 71250

== ENCOUNTER 2025-04-07 11:02 | Oncology outpatient (recurring) (ONCR) | payer OTHER, SELFPAY ==
[2025-04-07 11:27] VITALS: PULSE 74; RESP 18; O2SAT 97
== END 2025-05-07 23:59 | disposition home or self-care (01) ==
LOC: RT 11:03 → ONCMED 11:24
PROVIDERS: PCP Family Medicine; Visit Provider Internal Medicine Medical Oncology
DX: D50.9 Iron deficiency anemia, unspecified (principal); R03.0 Elevated blood-pressure reading, without diagnosis of hypertension
CPT/HCPCS: 94060; 94729; J7613

== ENCOUNTER → 2025-04-12 09:28 | Outpatient (BNVA) | payer OTHER, SELFPAY | PROVIDERS: PCP Family Medicine; Visit Provider Family Medicine | DX: I10 Essential (primary) hypertension (principal); E11.9 Type 2 diabetes mellitus without complications; Z79.4 Long term (current) use of insulin | CPT/HCPCS: 80053; 80061; 83036; 85025 ==

== ENCOUNTER 2025-05-10 11:22 | Oncology outpatient (recurring) (ONCR) | payer OTHER, SELFPAY ==
[2025-05-10 11:43] LABS: Hematocrit 37.4 % (36-47); Hemoglobin 11.90 g/dL (11.27-16.99); Mean Corpuscular HGB Conc 31.8 g/dL (30-55); Mean Corpuscular Hemoglobin 25.6 pg (27-33); Mean Corpuscular Volume 80.6 fl (85-98); Nucleated Red Blood Cells % 0 %; Platelet Count 136 10^3/cmm (157-399); Red Blood Count 4.64 10^6/uL (3.85-5.65); White Blood Count 6.46 10^3/uL (3.29-11.43)
[2025-05-10 12:22] LABS: Alanine Aminotransferase 18 U/L (0-33); Albumin Level 3.9 g/dL (3.5-5.2); Alkaline Phosphatase 139 U/L (35-105); Anion Gap 15.4 (5-19); Aspartate Amino Transferase 16 U/L (0-32); Blood Urea Nitrogen 17 mg/dL (8-23); Calcium 9.0 mg/dL (8.5-10.5); Carbon Dioxide 25 mmol/L (22-29); Chloride 103 mmol/L (98-107); Ferritin 143 ng/mL (15-150); Globulin 3.8 g/dL (1.3-4.6); Glucose 232 mg/dL (65-115); Iron 54 ug/dL (37-145); Osmolality Calculated 297 mOsm/kg (285-295); Potassium 4.4 mmol/L (3.5-5.1); Sodium 139 mmol/L (136-145); Total Iron Binding Capacity 270 mcg/dl; Total Protein 7.7 g/dL (6.6-8.7); Unsaturated Iron Binding 216 ug/dL (112-347); Vitamin B12 510 pg/mL (232-1245)
== END 2025-06-06 23:59 | disposition home or self-care (01) ==
PROVIDERS: PCP Family Medicine; Visit Provider Internal Medicine Medical Oncology
DX: D50.9 Iron deficiency anemia, unspecified (principal)
CPT/HCPCS: 36415; 80053; 82607; 82728; 82746; 83540; 83550; 85025

== ENCOUNTER → 2025-06-23 08:23 | Outpatient (BNVA) | payer OTHER, SELFPAY | PROVIDERS: PCP Family Medicine; Visit Provider Family Medicine | DX: I10 Essential (primary) hypertension (principal); I25.10 Atherosclerotic heart disease of native coronary artery without angina pectoris; E11.9 Type 2 diabetes mellitus without complications; Z79.4 Long term (current) use of insulin | CPT/HCPCS: 80053; 80061; 83036; 85025 ==

== ENCOUNTER 2025-07-06 06:44 | Outpatient (CLI) | payer OTHER, SELFPAY ==
--- NOTE | 2025-07-06 07:00 | CT_ITS ---
WS: [id number] CT chest wo con [id number] HISTORY: lung nodules TECHNIQUE: Axial imaging performed through the thorax. Coronal and sagittal reformats are submitted. All CT scans at [facility] use at least one of these dose optimization techniques: automated exposure control; mA and/or kV adjustment per patient size (includes targeted exams where dose is matched to clinical indication); or iterative reconstruction. CONTRAST: None DLP: 803.59 mGy.cm COMPARISON: 03/30/2025, 12/01/2024, 09/27/2024 Lungs and central airway: Lungs are slightly hyperinflated. Numerous bilateral subcentimeter pulmonary nodules are reidentified. As compared to prior studies dating back to 09/27/2024 there is been no interval change. The largest nodules measure approximately 6 mm. The smallest nodules are 2 mm or less. Additional areas of groundglass attenuation have improved which may have been related to hypersensitivity pneumonia or air trapping. Pleura: Normal. No pleural effusion. Heart and pericardium: Normal size heart with no pericardial effusion. Mediastinum and heather: No mediastinum or hilar adenopathy. Vessels: Mildly dilated pulmonary artery to 3.2 cm. Normal size aorta. Chest wall and lower neck: No soft tissue masses. Upper abdomen: Mild hepatic steatosis. Normal adrenal glands. Surface of the liver is slightly nodular suggesting cirrhosis. Although incompletely visualized the spleen also does appear to be enlarged. No ascites. Osseous structures: Mild increase in thoracic kyphosis. Several Schmorl's nodes are identified in the thoracic spine. No destructive bone lesions. CT/CT chest wo con [id number] IMPRESSION: 1. Numerous bilateral stable pulmonary nodules since 09/27/2024. Nodules range in size from 2 to 6 mm. 2. No pneumonia. 3. Improved areas of groundglass attenuation. 4. No adenopathy. 5. Suspect cirrhosis with portal venous hypertension.
== END 2025-07-06 06:45 | disposition home or self-care (01) ==
LOC: RAD 06:46
PROVIDERS: PCP Family Medicine; Visit Provider Internal Medicine
DX: J44.9 Chronic obstructive pulmonary disease, unspecified (principal); K83.1 Obstruction of bile duct; K76.0 Fatty (change of) liver, not elsewhere classified; M40.204 Unspecified kyphosis, thoracic region; M51.44 Schmorl's nodes, thoracic region
CPT/HCPCS: 71250